=== PATIENT | female | born 1980 | race African-American/Black ===

== ENCOUNTER 2019-12-22 10:26 | Outpatient (CLI) | payer OTHER, BC, SELFPAY ==
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
--- NOTE | ~2019-12-22 | XR_ITS ---
XR lumbar spine 2-3V DATE: 12/22/2019 11:43 INDICATION: Injury, back pain TECHNIQUE: Weightbearing AP, lateral, coned lateral lumbosacral views COMPARISON: None FINDINGS: There is mild levoscoliosis of the lumbar spine. No fracture or bone destruction. The pedic les are intact. Lumbar and lumbosacral interspaces are well preserved. The sacroiliac joints appear n ormal. IMPRESSION: Mild levoscoliosis; otherwise negative Reviewed, dictated and finalized at location B.
--- NOTE | ~2019-12-22 | XR_ITS ---
EXAMINATION: XR knee LT min 4V DATE: 12/22/2019 11:18 INDICATION: Left knee pain. TECHNIQUE: 4 views of left knee were obtained. COMPARISON: None. FINDINGS: Bone alignment is normal. No fracture. Joint spaces are well maintained. There is no knee j oint effusion. IMPRESSION: 1. Normal left knee. Reviewed, dictated and finalized at location A. IMPRESSION: 1. Normal left knee.
== END 2019-12-22 10:27 | disposition home or self-care (01) ==
PROVIDERS: PCP Emergency Medicine; Visit Provider Emergency Medicine
DX: M25.562 Pain in left knee (principal); M54.6 Pain in thoracic spine; M54.5 Low back pain
CPT/HCPCS: 72070; 72100; 73564

== ENCOUNTER 2022-05-06 07:53 | Emergency (ER) | payer BC, SELFPAY ==
[2022-05-06] VITALS (9 sets, daily range): BP systolic 139–152; BP diastolic 98–108; PULSE 103–119; RESP 14–37; TEMP 36.7; O2SAT 98–100
--- NOTE | ~2022-05-06 | CT_ITS ---
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 The dose-length product was 354.77 mGy-cm. Maximum intensity projection 3D-re constructions of the aorta and other arteries were constructed by the technologist on a separate work station. Automated exposure control and iterative reconstruction technique were employed. COMPARISON: CT dated 03/24/2019. FINDINGS: Heart size is normal. No thoracic lymphadenopathy. No significant pleural or pericardial ef fusion. Study is technically adequate without evidence for pulmonary embolism. Small hiatal hernia. N o thoracic lymphadenopathy. The left lower lobe mass seen on prior CT is not visualized on the curren t study. There are changes of left lobectomy. No focal consolidation. No suspicious pulmonary nodules or masses. IMPRESSION: 1. No evidence for pulmonary embolism. No acute cardiopulmonary disease. 2: No acute cardiopulmonary disease. Reviewed, dictated and finalized at location A. STORAGE DRIER
--- NOTE | ~2022-05-06 | XR_ITS ---
XR chest 2V 05/06/2022 08:31 Indication: Chest pain, cough. Lobectomy. Lung cancer. Procedure: PA and lateral views of the chest Comparison: 12/30/2015 Findings: There is left basilar atelectasis. Heart size normal. No focal pneumonia, edema, pleural ef fusion or pneumothorax. No acute osseous abnormality. Impression: 1: Left basilar atelectasis. Reviewed, dictated and finalized at location A. TRICAL AUTOMATION ENGINEER Impression: 1: Left basilar atelectasis.
--- NOTE | 2022-05-06 08:01 | ECG_ITS ---
Measurements Intervals [place] Rate: 118 P: 54 MI: 163 QRS: -3 QRSD: 100 T: 40 QT: 318 QTc: 446 Interpretive Statements SINUS TACHYCARDIA NO PREVIOUS ECG AVAILABLE FOR COMPARISON Electronically Signed On 05-06-2022 15:01:52 CENTER MAKER HAND by Cuca Simental M.D.
--- NOTE | 2022-05-06 08:06 | ED.CHESTPAIN ---
HPI - Chest Pain General Chief Complaint: Chest Pain Stated Complaint: cough with chest discomfort, CHANCE, elevated BP Time Seen by Provider: 05/06/22 08:06 Source: patient and RN notes reviewed Mode of arrival: ambulatory Limitations: no limitations History of Present Illness HPI narrative: Patient drove herself to the emergency room complaining of dry cough, chest pain, headache started yesterday, vomited once this morning. She denies any fever or chills. She denies sick contact. History of lung cancer s/p lobectomy and history of hypertension. Patient does not smoke or drink or uses drugs, patient in tears, denying history of anxiety or depression Related Data Allergies Allergy/AdvReac Type Severity Reaction Status Date / Time amoxicillin Allergy Hives Verified 05/06/22 08:03 omeprazole [From Prilosec] Allergy Hives Verified 05/06/22 08:03 Review of Systems Review of Systems: All systems reviewed & are unremarkable except as noted in HPI and below Exam Narrative: General appearance: Well-developed, well-nourished, in tears, jittery speech Skin: Normal color Head: Normocephalic, nontraumatic Eyes: Clear conjunctiva ENT: Oropharynx normal, ears normal, nose normal Neck: Supple, nontender Chest and respiratory: Airway patent, no respiratory distress, no accessory muscle use. Slight diffuse chest tenderness, no bruises, no rash. Heart: Tachycardia Abdomen: Soft, nontender, no organomegaly, quiet bowel sounds Vascular: Normal peripheral pulses, normal capillary refill. Musculoskeletal: Normal range of motion, nontender back Neurologic: Alert and oriented ?3, SLPS is normal as tested, no gross motor deficit Course Vital Signs Vital signs: Vital Signs Temperature 36.7 C 05/06/22 07:56 Pulse Rate 115 H 05/06/22 07:56 Respiratory Rate 14 05/06/22 07:56 Blood Pressure 152/107 H 05/06/22 07:56 Pulse Oximetry 99 05/06/22 07:56 Oxygen Delivery Room Air 05/06/22 07:56 Temperature 36.7 C 05/06/22 07:56 Pulse Rate 106 H 05/06/22 09:15 Respiratory Rate 22 H 05/06/22 09:15 Blood Pressure 150/108 H 05/06/22 08:34 Pulse Oximetry 98 05/06/22 09:15 Oxygen Delivery Room Air 05/06/22 07:56 MDM - Chest Pain Differential Diagnosis Differential diagnosis: Likely atypical chest pain, costochondritis, chest pain and other (Anxiety/stress related symptoms, respiratory viral infection) Lab Data 05/06/22 08:26 05/06/22 08:26 Labs: Lab Results 05/06/22 05/06/22 05/06/22 Range/Units 08:26 08:26 08:26 WBC 10.1 H (4.5-10.0) K/mm3 RBC 4.67 (4.2-5.4) M/mm3 Hgb 13.9 (12.0-15.0) g/dL Hct 40.4 (37.0-47.0) % MCV 86.5 (80-100) fl MCH 29.8 (26-34) pg MCHC 34.4 (32-36) g/dl RDW 12.1 (11.5-14.5) % Plt Count 240 (150-375) k/mm3 MPV 9.0 (7.4-10.4) fl Immature Gran % (Auto) 0.5 (0-0.5) % Neut % (Auto) 84.8 H (45.5-73.1) % Lymph % (Auto) 9.0 L (18.3-44.2) % Early % (Auto) 5.3 (2.6-8.5) % Eos % (Auto) 0.2 (0-4.4) % Baso % (Auto) 0.2 (0.2-1.2) % Lymph # (Auto) 0.91 (0.9-3.2) K/mm3 Early # (Auto) 0.5 (0.1-0.6) K/mm3 Eos # (Auto) 0.0 (0-0.3) K/mm3 Baso # (Auto) 0.0 (0.0-0.1) K/mm3 Abs Immat Gran (auto) 0.05 H (0.00-0.031) K/mm3 Absolute Neuts (auto) 8.6 H (1.3-6.7) K/mm3 Absolute Nucleated RBC 0.0 (0.0-0.012) K/mm3 Nucleated RBC % 0.0 (0.0-0.2) % PT 12.3 (11.1-14.7) Seconds INR 1.0 APTT 25.3 (22.3-36.8) SECONDS D-Dimer 0.56 H (<0.48) ug/mL Sodium 133 L (137-145) mmol/L Potassium 3.9 (3.4-5.0) mmol/L Chloride 105 (98-107) mmol/L Carbon Dioxide 21
[2022-05-06 08:36] LABS: Basophils Percent Auto 0.2 % (0.2-1.2); Eosinophils Percent Auto 0.2 % (0-4.4); Hematocrit 40.4 % (37.0-47.0); Hemoglobin 13.9 g/dL (12.0-15.0); Immature Granulocyte Absolute 0.05 K/mm3 (0.00-0.031); Immature Granulocyte Percent A 0.5 % (0-0.5); Lymphocytes Absolute Auto 0.91 K/mm3 (0.9-3.2); Mean Corpuscular HGB Conc 34.4 g/dl (32-36); Mean Corpuscular Hemoglobin 29.8 pg (26-34); Mean Corpuscular Volume 86.5 fl (80-100); Monocytes Absolute Auto 0.5 K/mm3 (0.1-0.6); Monocytes Percent Auto 5.3 % (2.6-8.5); Neutrophils Absolute Auto 8.6 K/mm3 (1.3-6.7); Neutrophils Percent Auto 84.8 % (45.5-73.1); Platelet Count Result 240 k/mm3 (150-375); Red Blood Count 4.67 M/mm3 (4.2-5.4); Red Cell Distribution Width 12.1 % (11.5-14.5); White Blood Count 10.1 K/mm3 (4.5-10.0)
[2022-05-06 08:46] LABS: Alanine Aminotransferase 17 U/L (6-35); Alkaline Phosphatase 67 U/L (38-126); Anion Gap 7 mmol/L (8-16); Aspartate Amino Transferase 22 U/L (14-36); Bilirubin,Total 0.4 mg/dL (0.2-1.3); Blood Urea Nitrogen 11 mg/dL (7-17); Calcium 8.4 mg/dL (8.4-10.2); Carbon Dioxide 21 mmol/L (22-30); Chloride 105 mmol/L (98-107); Estimated Glomerular Filt Rate > 60; Glucose 97 mg/dL (65-110); Lipase 43 U/L (23-300); Potassium 3.9 mmol/L (3.4-5.0); Sodium 133 mmol/L (137-145)
[2022-05-06 08:49] LABS: Prothrombin Time 12.3 Seconds (11.1-14.7)
[2022-05-06 08:50] LABS: Partial Thromboplastin Time 25.3 SECONDS (22.3-36.8)
[2022-05-06 08:55] LABS: D Dimer 0.56 ug/mL (<0.48)
[2022-05-06 08:57] LABS: Troponin I < 0.012 ng/mL (0.000-0.034)
[2022-05-06 09:24] LABS: Influenza A QL RT-PCR Positive (Negative); Influenza B QL RT-PCR Negative (Negative); RSV RNA, RT-PCR Negative (Negative); SARS-CoV-2 RNA PCR Negative
[2022-05-06 11:30] LABS: Troponin I < 0.012 ng/mL (0.000-0.034)
[2022-05-06] MEDS: ACETAMINOPHEN 500 MG TABLET 1000 MG (11:32)
[2022-05-06] MEDS: IBUPROFEN 600 MG TABLET (11:33)
== END 2022-05-06 11:40 | disposition home or self-care (01) ==
PROVIDERS: Emergency Provider Emergency Medicine; PCP Emergency Medicine
DX: J10.1 Influenza due to other identified influenza virus with other respiratory manifestations (principal); Z20.822 Contact with and (suspected) exposure to COVID-19; I10 Essential (primary) hypertension; Z85.118 Personal history of other malignant neoplasm of bronchus and lung; Z90.2 Acquired absence of lung [part of]; R00.0 Tachycardia, unspecified; R07.9 Chest pain, unspecified
CPT/HCPCS: 36415; 71046; 71275; 80053; 81025; 83690; 84484; 85025; 85380; 85610; 85730; 87637; 93005; 99284; A9270; Q9967

== ENCOUNTER 2022-06-30 07:52 | Outpatient (CLI) | payer BC, SELFPAY ==
--- NOTE | ~2022-06-30 | MM_ITS ---
EXAMINATION: MM screening [place] BI w [place] HISTORY: Screening TECHNIQUE: Craniocaudal and mediolateral oblique 3-D tomosynthesis images were obtained and synthetic 2-D images were generated. CAD analysis was submitted and interpreted. COMPARISON: No prior mammogram is available for comparison at this institution. BREAST PARENCHYMAL COMPOSITION: Breast composed of scattered areas of fibroglandular density FINDINGS: There are bilateral breast asymmetries located in the lower medial aspect of both breasts. There is no focal architectural distortion. No suspicious cluster of calcifications. IMPRESSION: 1. Bilateral breast asymmetries. 2. Additional spot compression and mediolateral views with possible follow-up breast ultrasound recom mended. BI-RADS Category 0: Incomplete: Needs additional imaging evaluation. Reviewed, dictated and finalized at location A. [place] SPECIALIST IMPRESSION: 1. Bilateral breast asymmetries. 2. Additional spot compression and mediolateral views with possible follow-up b reast ultrasound recommended. BI-RADS Category 0: Incomplete: Needs additional imaging evaluation.
== END 2022-06-30 07:53 | disposition home or self-care (01) ==
PROVIDERS: PCP Emergency Medicine; Visit Provider Nurse Practitioner Obstetrics & Gynecology
DX: Z12.31 Encounter for screening mammogram for malignant neoplasm of breast (principal); R92.8 Other abnormal and inconclusive findings on diagnostic imaging of breast
CPT/HCPCS: 77063; 77067

== ENCOUNTER 2022-07-24 11:51 | Outpatient (CLI) | payer BC, SELFPAY ==
--- NOTE | ~2022-07-24 | MMUS_ITS ---
EXAMINATION: MM diagnostic [place] BI w [place], US breast BI complete HISTORY: Bilateral mammographic asymmetries reported on 06/30/2022 screening mammogram TECHNIQUE: Additional 3-D tomosynthesis images of both breasts were performed and synthetic 2-D image s were generated. CAD analysis was submitted and interpreted. High resolution bilateral complete yoseph st ultrasound examination was performed, including all 4 quadrants and subareolar areas. COMPARISON: 06/30/2002 bilateral screening mammogram FINDINGS: MAMMOGRAPHIC FINDINGS: No reproducible mass or architectural distortion is detected. ULTRASOUND: No suspicious mass or shadowing of either breast is detected. No cysts or other significant sonograph ic findings. IMPRESSION: 1. No mammographic evidence of malignancy 2. Routine annual mammographic screening is recommended BI-RADS Category 1: Negative Reviewed, dictated and finalized at location A. TRUCTION SAFETY CONSULTANT IMPRESSION: 1. No mammographic evidence of malignancy 2. Routine annual mammographic screening is recommended BI-RADS Category 1: Negative
== END 2022-07-24 11:52 | disposition home or self-care (01) ==
LOC: ANHIMG 11:52
PROVIDERS: PCP Emergency Medicine; Visit Provider Nurse Practitioner Obstetrics & Gynecology
DX: R92.8 Other abnormal and inconclusive findings on diagnostic imaging of breast (principal)
CPT/HCPCS: 76641; 77062; 77066; G0279

== ENCOUNTER 2023-04-20 15:19 | Emergency (ER) | payer BC, SELFPAY ==
--- NOTE | ~2023-04-20 | XR_ITS ---
EXAMINATION: XR chest 2V 04/20/2023 16:48 INDICATION: Shortness of breath with cough for 3 weeks PROCEDURE: 2 view chest COMPARISON: Chest dated 05/06/2022 FINDINGS: The lungs are clear. The cardiomediastinal silhouette is within normal limits. There are no pleural effusions. There is no pneumothorax suspected. IMPRESSION: 1: NO ACUTE CARDIOPULMONARY DISEASE. Reviewed, dictated and finalized at location L. AL EDUCATOR
[2023-04-20 15:42] VITALS: BP 150/98; PULSE 87; RESP 16; TEMP 36.8; O2SAT 99
--- NOTE | 2023-04-20 17:00 | ED.GENADULT ---
HPI - General Adult General Chief complaint: Upper Respiratory Infection Stated complaint: cough/uri Time Seen by Provider: 04/20/23 16:16 History of Present Illness HPI narrative: 42-year-old female presenting ED for evaluation of persistent cough. Patient was recently on prednisone, Tessalon Perles and doxycycline. Patient states the doxy has been causing her to have some nausea and vomiting. Related Data Allergies Allergy/AdvReac Type Severity Reaction Status Date / Time amoxicillin Allergy Hives Verified 05/06/22 08:03 omeprazole [From Prilosec] Allergy Hives Verified 05/06/22 08:03 Review of Systems Review of Systems: All systems reviewed & are unremarkable except as noted in HPI and below Exam Narrative: APPEARANCE: Well appearing, no pain, no distress, well-nourished. HEAD: normocephalic, atraumatic. EYES: PERRLA/EOMI, conjunctivae clear. NOSE: Normal no drainage EARS:TMS clear with good light reflex. THROAT: Pharynx clear, no exudate. NECK: Supple. No adenopathy, no masses. RESPIRATORY: Airway patent, respirations nonlabored. Clear to auscultation bilaterally, no rales, rhonchi, wheezing. CARDIOVASCULAR: Regular rate and rhythm without murmurs rubs or gallops. ABDOMINAL: Soft, nontender, nondistended, normal bowel sounds MUSCULOSKELETAL: Moves all extremities. Strength/ROM intact, No edema, No calf tenderness. NEURO: Alert. Cranial nerves II through XII intact. grossly intact SKIN: Warm, dry. Normal Color Course Course Emergency Course: 42-year-old female with an emerge from for evaluation of persistent and cough. Patient chest x-ray showed no evidence of pneumonia. Patient did test positive for RSV. patient states she is not tolerating the doxycycline due to nausea and vomiting. Patient has no focal pneumonia seen on the chest x-ray patient did test positive RSV. Patient was advised to stop the antibiotic and patient was provided medications for symptom control. Patient was given the results of the workup. All questions concerns were addressed patient was well-appearing at time of discharge. Vital Signs Vital signs: Vital Signs Temperature 98.3 F 04/20/23 15:42 Pulse Rate 87 04/20/23 15:42 Respiratory Rate 16 04/20/23 15:42 Blood Pressure 150/98 H 04/20/23 15:42 Pulse Oximetry 99 04/20/23 15:42 Temperature 98.3 F 04/20/23 15:42 Pulse Rate 87 04/20/23 15:42 Respiratory Rate 16 04/20/23 15:42 Blood Pressure 150/98 H 04/20/23 15:42 Pulse Oximetry 99 04/20/23 15:42 Oxygen Delivery Room Air 04/20/23 16:13 Medical Decision Making Differential Diagnosis Differential Diagnosis: Pneumonia, COVID, RSV, influenza Vital Signs Vital Signs: Vital Signs Temperature 98.3 F 04/20/23 15:42 Pulse Rate 87 04/20/23 15:42 Respiratory Rate 16 04/20/23 15:42 Blood Pressure 150/98 H 04/20/23 15:42 Pulse Oximetry 99 04/20/23 15:42 Temperature 98.3 F 04/20/23 15:42 Pulse Rate 87 04/20/23 15:42 Respiratory Rate 16 04/20/23 15:42 Blood Pressure 150/98 H 04/20/23 15:42 Pulse Oximetry 99 04/20/23 15:42 Oxygen Delivery Room Air 04/20/23 16:13 Lab Data Lab results reviewed: Yes I reviewed the patient's lab results. Labs: Lab Results 04/20/23 Range/Units 16:24 Influenza A (RT-PCR) Negative (Negative) Influenza B (RT-PCR) Negative (Negative) RSV (RT-PCR) Positive A (Negative) SARS-CoV-2 RNA (RT-PCR) Negative (Negative) Imaging Data Radiologist's impression: Impressions Chest X-Ray 04/20/23 16:50 IMPRESSION: 1: NO ACUTE CARDIOPULMONARY DISEASE. Discharge Plan Discharge Clinical Impression: Respiratory syncytial virus (RSV) Patient Disposition: Home, Self-Care Condition: Stable Instructions: Antibiotic Form, Viral Syndrome (ED) Additional Instructions: Latricia Aguirre for home. albuterol inhaler for shortness of breath. Stop taking the antibiotic.
[2023-04-20 17:06] LABS: Influenza A QL RT-PCR Negative (Negative); Influenza B QL RT-PCR Negative (Negative); RSV RNA, RT-PCR Positive (Negative); SARS-CoV-2 RNA PCR Negative (Negative)
== END 2023-04-20 17:37 | disposition home or self-care (01) ==
PROVIDERS: Emergency Provider Emergency Medicine; PCP Emergency Medicine
DX: R05.9 Cough, unspecified (principal); B97.4 Respiratory syncytial virus as the cause of diseases classified elsewhere
CPT/HCPCS: 71046; 87637; 99283

== ENCOUNTER 2023-10-13 09:15 | Outpatient (CLI) | payer BC, SELFPAY ==
--- NOTE | ~2023-10-13 | MM_ITS ---
EXAMINATION: MM screening [place] BI w [place] HISTORY: Screening mammogram TECHNIQUE: Craniocaudal and mediolateral oblique 3-D tomosynthesis images were obtained and synthetic 2-D images were generated. CAD analysis was submitted and interpreted. COMPARISON: July 24, 2022 bilateral diagnostic mammography and bilateral complete breast ultrasou nd examination, reported negative 06/30/2022 bilateral screening mammogram BREAST PARENCHYMAL COMPOSITION: There are scattered areas of fibroglandular density. FINDINGS: There is no evidence of suspicious mass, calcification, or architectural distortion to sugg est malignancy in either breast. There has been no suspicious interval change. IMPRESSION: 1. No mammographic evidence of malignancy. 2. Recommend routine screening mammography in one year. BI-RADS Category 1: Negative Reviewed, dictated and finalized at location B.
== END 2023-10-13 09:16 | disposition home or self-care (01) ==
LOC: ANHIMG 09:19
PROVIDERS: PCP Emergency Medicine; Visit Provider Nurse Practitioner Obstetrics & Gynecology
DX: Z12.31 Encounter for screening mammogram for malignant neoplasm of breast (principal)
CPT/HCPCS: 77063; 77067

== ENCOUNTER 2024-08-16 19:05 | Emergency (ER) | payer BC, SELFPAY ==
--- NOTE | ~2024-08-16 | XR_ITS ---
CHEST RADIOGRAPH, PA AND LATERAL CLINICAL HISTORY: CP . COMPARISON: 04/20/2023 TECHNIQUE: PA and lateral views of the chest. FINDINGS The cardiomediastinal silhouette is unremarkable. The lungs are clear. Visualized osseous structures and soft tissues are unremarkable. IMPRESSION: No focal infiltrate or effusion. Reviewed, dictated and finalized at location A.
--- OUTSIDE RECORDS SUMMARY | 2024-08-16 19:07 | XMS_ITS ---
Author Organization [facility] Address [address], [facility] [place] [address] Phone Care Team Providers Care Russian Language Professor Name Role Phone Rudy Seaman Primary Care Provider [phone] Michael Hutson MD Unavailable [phone] Active Problems Problem Noted Date Diagnosed Date Iron deficiency anemia, unspecified 03/17/2024 Hemangioma of spine 12/10/2021 Chronic midline low back pain with left-sided sc iatica 12/10/2021 Complete lesion of L1 level of lumbar spinal cor d 09/25/2021 Vitamin D deficiency 08/07/2021 Iron deficiency 08/07/2021 Hiatal hernia 12/27/2020 Liver lesion 11/28/2020 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 Other Current Plans [facility]: Support Injectafer* Plan Start Date:03/24/2024 Plan Provider:Michael Hutson MD Linked Problems Iron deficiency anemia, unsp ecified iron deficiency anemia type Treatment Medications No medications scheduled. SUPPORT - VITAMIN B12 WEEKLY - [facility]* Plan Start Date:08/07/2021 Plan Provider:Jennifer Romano PAC Linked Problems Vitamin D deficiencyIron def iciency Treatment Medications No medications scheduled. Past Treatment and Therapy Plans
--- OUTSIDE RECORDS SUMMARY | 2024-08-16 19:07 | XMS_ITS | Encounter Summary ---
Author Organization [facility] Address [address] [place] [address] Phone Care Team Providers Care Shot Polisher Name Role Phone Rudy Seaman Primary Care Provider [phone] Michael Hutson MD Unavailable Encounter Details Date Type Department Care Team (Late st Contact Info) Description 09/25/2021 Telephone [facility] [address] [phone] Michael Hutson MD [address] [facility] [address] [address] Social History Tobacco Use Types Packs/Day Years Used Date Smoking Tobacco: Never Smokeless Tobacco: Never Alcohol Use Standard Drinks/Week Comments Never 0 (1 standard drink = 0.6 oz pur e alcohol) AUDIT-C Answer Date Recorded Frequency of Alcohol Consumption Never 07/21/2019 Average Number of Drinks Not on file 020 Frequency of Binge Drinking Not on file 07/02 PHQ-2 Answer Date Recorded Total Score - Questions 1-9 0 08/30 Education Answer Date Recorded What is the highest level of school you have completed or the highest degree you have received? 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 No / Unsure 09/25/2021 8:21 AM CDT documented as of this encounter Miscellaneous Notes * Telephone Encounter - Nusrat Morfin - 10/01/2021 7:42 AM CDT Patient is scheduled on October 06 for her MRI at [facility] in [place]. Patient aware of new appointment. * Telephone Encounter - Michael Hutson MD - 09/25/2021 2:26 PM CDT ok * Telephone Encounter - Nusrat Morfin - 09/25/2021 1:45 PM CDT I will see if [facility] get [facility] patient [facility] sooner. She did ask if she can get a prescription forAtivan to help calm her when she does the MRI. * Telephone Encounter - Michael Hutson MD - 09/25/2021 1:20 PM CDT Prefer to get it sooner so we can have results before visit * Telephone Encounter - Nusrat Morfin - 09/25/2021 12:48 PM CDT Patient called because the first available appointment for the MRI isn't until October 17. She wantedto know if that date is ok to do or if she needs to get in sooner. If the October 17 appointment is ok, does she need to move the October 16 appointment with you to a different day? Please advise. documented in this encounter Plan of Treatment Upcoming Encounters Date Type Department Care Team (Late st Contact Info) Description 08/18/2024 9:00 AM CDT Office Visit [facility] [address] [phone] Michael Hutson MD [address] [facility] [place] [address] [address] 08/18/2024 9:15 AM CDT Clinical Support [facility] [address] [phone] Nurse, [facility] documented as of this encounter Visit Diagnoses Not on filedocumented in this encounter Additional Health Concerns Assessment Noted Time PHQ-9 Depression Total Score: 0 02/28/20 8:32 AM CDT documented as of this encounter Care Teams Shot Polisher Relationship Specialty Start Date End Date Rudy Seaman [address] [place] [address] PCP - General Family Medicine 07/21/19 Michael Hutson MD [address] [place] [phone] Consulting Physician Oncology 07/21/19 documented as of this encounter
--- OUTSIDE RECORDS SUMMARY | 2024-08-16 19:07 | XMS_ITS | Data Portability ---
Author Organization [facility] Address [address] [place] [address] [place] [address] Care Team Providers Care Jewel Sawyer Name Role Phone ARACELI QURESHI Primary Care Provider Assessment Encounter Date Assessment Date Assessment LastModified by Organization Details LastModified Time 02/26/2020 02/26/2020 Annual gynecological exam performed. Patient will come back in a year unless there are new symptoms. [email or web address] Not available 02/26/2020 14:17:20 03/13/2021 03/13/2021 Annual gynecological exam performed. Patient will come back in a year unless there are new symptoms. Not available 03/12/2021 16:41:18 03/31/2022 03/31/2022 Annual gynecological exam performed. Patient will come back in a year unless there are new symptoms. Not available 03/31/2022 16:06:33 2023 2023 Annual gynecological exam performed. Patient will come back in a year unless there are new symptoms. [email or web address] Not available 2023 12:22:40 Plan of Treatment Reminders Order Date Submit Date Provider Last Modified By Organization Details Last Modified Time Details Appointments None recorded. Lab None recorded. Referral None recorded. Procedures None recorded. Surgeries None recorded. Imaging MAMMO, screening, bilateral 2023 024 [email or web address] [facility], [address], [place], [address], 10:25:50 Medication Orders Isibloom 0.15 mg-0.03 mg tablet 2023 024 [facility], [address], [place], [place], [id number], 4 12:39:28 Apri 0.15 mg-0.03 mg tablet 2021 022 [facility]26539, [address], [place], [place], [id number], 2 16:28:38 Diflucan 200 mg tablet [address] [facility]889, [address], [place], [place], [id number], 2 16:08:00 nystatin-t riamcinolo ne 100,000 unit/gram- 0.1 % topical ointment 2020 021 [address] [facility], [address], [place], [place], [id number], 2 16:08:23 Apri 0.15 mg-0.03 mg tablet 2020 021 [facility], [address], [place], [place], [id number], 1 11:28:16 Apri 0.15 mg-0.03 mg tablet 2019 020 [facility], [address], [place], [place], [id number], 0 14:54:37 Patient TargetsNo targets recorded. Patient Instructions Encounter Date Encounter Id Patient Instructions Last Modified By Organization Details Last Modified Time 02/26/2020 [email or web address] Not available 14:50:45 Reason for Referral None Reported. Results Created Date Observation Date Name Description Value Unit Range Abnormal Flag Note LastModifiedBy Organization Detail LastModifiedTime 02/26/20 20 02/27/2020 pap, LB Pap test thin prep Negati ve for Intrae pithel ial Lesion or Malign rosetta normal ACCES JUDIT #: [id number] Sour e: Cervi xander/E ndoce rvica l LMP: 10/17 Date Taken : 02/25 Speci men Type: ThinP rep Vial Date Repor elton: 2019 Clini xander Data: Cytot ech: Shirley Ybarra, CT( CP) Date Repor elton: 2019 Speci men Adequ acy: Satis facto ry for evalu ation Endoc ervic al/tr ansfo rmati on zone compo nent prese nt Gener al Categ oriza tion: NEGAT DIANN FOR INTRA EPITH ELIAL LESMILDRED N OR MALALBINO NELIDA This speci men has been maciel zed by the ThinP rep Imagi ng Syste m, an inter activ e compu ter syste m which narciso ts the lab in the scree ambrocio of ThinP rep Pap Test slide s. Joy sánchez imagi ng, the slide was revie wed by a Cytot echno logis t and/o r Patho logis t. D N A A S S A Y S R E P O R T TEST NAME RESUL TS ----- ---- ----- -- HPV High Risk Screandre n (TMA) ThinP rep Vial The human papil lomav irus (HPV) High Risk Scree n is an FDA-a pprov ed in-vi tro ampli fied nucle ic acid test for the quali tativ e detec tion of E6/E7 viral mRNA. Resul ts shoul d be corre lated with patie nt prese ntati on, histo ry, cervi xander cytol ogy and other clini xander and labor atory findi ngs. See https ://Studyplaces/s ites/ deflivan lt/fi les/2 018-0 3/AW- 58504 _002_ 01.pd f for furth er infor matio n. Test perfo rmed by [facility], d/b/a Celeste [facility]yle, [address], [place] [address] , Kim Degroot ra, DO, Labor [employer] [facility] [facility]. HPV High Risk *HPV NOT DETEC ELTON (TYPE S 16, 18, 31, 33, 35, 39, 45, 51, 52, 56, 58, 59, 66, 68) *HPV: The human papil lomav irus (HPV) High Risk Irineo herman is an FDA-a pprov ed in-vi tro ampli fied nucle ic acid test for the quali tativ e detec tion of E6/E7 viral mRNA. [facility] ts shoul d be corre lated with patie nt prese ntati on, histo ry, cervi xander cytol ogy and other clini xander and labor atory findi ngs. See https ://Studyplaces/s ites/ defau lt/fi les/2 018-0 3/AW- 89501 _002_ 01.pd f for formerly [facility] er infor minerva n. Test perfo rmed by [employer], d/b/a [employer], [address], [place] [address] , Kim Degroot ra, DO, Labor [employer] [facility] tor. End of Repor t Techn ical servi raza provi ded by [employer], d/b/a [employer], [address] [place] [address] Ridge Kirkpatrick MD, Merged With [facility] [employer] [facility]. Case revie wed and diagn osis rende red at [employer], d/b/a [facility], [address] [place] [address] Ridge Kirkpatrick MD, Merged With [facility] CONFI DENTI AL Not Available [facility] ([facility]) [address], [place], [address], 02/27/2020 19:29:00 02/26/20 20 02/27/2020 HPV DNA, high- risk HPV high risk NOT DETECT ED normal Not Available [facility] ([facility]) [address] [facility] [address], [place], [address], 02/27/2020 19:29:00 03/13/20 21 03/13/2021 IMAGE GUIDE D PAP AND HPV REGAR DLESS image guided Pap, HPV regardless of Pap result SEE RESULT S BELOW CASE REPOR T: Cytol ogy Gynec ologi xander Repor t Case: [id number] Autho tommie green Provi reese: Won Coy Colle cted: 03/13 1402 ROOFER METAL Order ing Locat ion: [place] Patho logy Recei natalia: 03/14 0025 First Scree n: Griselda gutierrez, Katalina bell, CT Speci men: Scree ambrocio Pap - Image d, Cervi x STATE MENT OF ADEQU ACY: Satis facto ry for evalu ation Trans forma tion zone compo nent prese nt FINAL DIAGN OSIS: Negat diann for Intra epith elial Lesio n or Diamond merrill (NIL) . 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 Elect srinath noland pat d by Katalina Morataya, CT on 03/19 at 6:42 PM ----- ----- ----- ----- ----- ----- ----- ----- ----- ----- ----- ----- ----- ----- ----- ----- ----- ---- HPV RESUL TS: HPV mRNA E6/E7 : No HPV mRNA Detec elton NOTE: This high risk HPV mRNA assay detec ts fourt een high- risk HPV types (16, 18, 31, 33, 35, 39, 45, 51, 52, 56, 58, 59, 66, 68) witho ut diffe renti ation . COMME NT: Note: This speci men was revie wed by a Cytot echno logis t and/o r Patho logis t (as indic ated in this repor t) after evalu ation using the Thinp rep Imagi ng Syste m. CLINI XANDER INFOR MATIO N: Menst rual Statu s: LMP (if appli cable ): 2020 Clini xander Histo ry/Pr eviou s Pap: Type of Neopl marino (if appli cable ): Signi fican t Clini xander Findi ngs: Other Histo ry: Hormo lamin (if appli cable ): PAP EDUCA ILIANA L NOTE: The Pap Test is a scree ambrocio test with an inher ent false negat diann rate. Liqui d-bas e sampl ing may decre ase, but will not elimi faviola, false negat diann resul ts. A negat diann resul t does not precl ude the prese nce and/o r devel opmen t of disea se, since the prese nce of abnor mal cells in the sampl e depen ds on the locat ion of the lesio n and sampl ing techn ique. Jeane nued regul ar scree ambrocio is the best metho d of cance r preve ntion . If repor elton cytol ogic findi ng do not corre late with physi xander and/o r histo rical findi ngs, furth er inves tigat ion is recom laura d, as clini hilaria warrmonica nted. Not Available [facility] (Lab) [address], [place], [address], 03/19/2021 19:44:39 03/31/20 22 03/31/2022 IMAGE GUIDE D PAP AND HPV REGAR DLESS image guided Pap, HPV regardless of Pap result SEE RESULT S BELOW CASE REPOR T: Cytol ogy Gynec ologi xander Repor t Case: [id number] Autho tommie green Provi reese: Won Coy Colle cted: 03/31 1709 ROOFER METAL Order ing Locat ion: [place] Patho logy Recei natalia: 04/01 0333 First Scree n: Eva [place] , CT Rescr een: Nomarge ni, Annam ed, CT Speci men: Scree ambrocio Pap - Image d, Cervi x STATE MENT OF ADEQU ACY: Satis facto ry for evalu ation Trans forma tion zone compo nent absen t The absen ce of an endoc ervic al compo nent was confi rmed by an addit pepe jaeger. FINAL DIAGN OSIS: Negat diann for Intra epith elial Lesio n or Diamond merrill (NIL) . Elect srinath noland pat d by Dorian Suarez ed, CT on 2021 at 5:57 PM ----- ----- ----- ----- ----- ----- ----- ----- ----- ----- ----- ----- ----- ----- ----- ----- ----- ---- HPV RESUL TS: HPV mRNA E6/E7 : No HPV mRNA Detec etlon NOTE: This high risk HPV mRNA assay detec ts fourt een high- risk HPV types (16, 18, 31, 33, 35, 39, 45, 51, 52, 56, 58, 59, 66, 68) witho ut diffe renti ation . COMME NT: Note: This speci men was revie wed by a Cytot echno logis t and/o r Patho logis t (as indic ated in this repor t) after evalu ation using the Thinp rep Imagi ng Syste m. CLINI XANDER INFOR MATIO N: Menst rual Statu s: LMP (if appli cable ): Clini xander Histo ry/Pr eviou s Pap: Type of Neopl marino (if appli cable ): Signi fican t Clini xander Findi ngs: Other Histo ry: Hormo lamin (if appli cable ): PAP EDUCA ILIANA L NOTE: The Pap Test is a scree ambrocio test with an inher ent false negat diann rate. Liqui d-bas ed sampl ing may decre ase, but will not elimi faviola, false negat diann resul ts. A negat diann resul t does not precl ude the prese nce and/o r devel opmen t of disea se, since the prese nce of abnor mal cells in the sampl e depen ds on the locat ion of the lesio n and sampl ing techn ique. Jeane nued regul ar irineo albrecht is the best metho d of cance r preve ntion . If repor elton cytol ogic findi ng do not corre late with physi xander and/o r histo rical findi ngs, furth er inves tigat ion is recom laura d, as clini hilaria nolan nted. Not Available [facility] (Lab) [address], [place], [address], 04/05/2022 18:59:35 06/15/19 24 2023 IMAGE GUIDE D PAP AND HPV REGAR DLESS image guided Pap, HPV regardless of Pap result SEE RESULT S BELOW CASE REPOR T: Cytol ogy Gynec ologi xander Repor t Case: [id number] Autho tommie green Provi reese: Won Coy Colle cted: 06/15 1337 ROOFER METAL Order ing Locat ion: [place] Patho logy Recei natalia: 06/16 0847 First Screandre n: Pablo Staples am, CT Speci men: Irineo albrecht Pap - Image d, Cervi x STATE MENT OF ADEQU ACY: Satis facto ry for evalu ation Trans forma tion zone compo nent prese nt FINAL DIAGN OSIS: Negat diann for Intra epith elial Lesmildred herman or Diamond merrill (NIL) . Shift in kendell sugge stive of bacte rial vagin osis. Elect srinath noland pat d by Pablo Staples am, CT on 2023 at 11:26 AM ----- ----- ----- ----- ----- ----- ----- ----- ----- ----- ----- ----- ----- ----- ----- ----- ----- ---- HPV RESUL TS: HPV mRNA E6/E7 : No HPV mRNA Detec elton NOTE: This high risk HPV mRNA assay detec ts fourt een high- risk HPV types (16, 18, 31, 33, 35, 39, 45, 51, 52, 56, 58, 59, 66, 68) witho ut diffe renti ation . COMME NT: This speci men was revie wed by a Cytot echno logis t and/o r Patho logis t (as indic ated in this repor t) after evalu ation using the Thinp rep Imagi ng Syste m. CLINI XANDER INFOR MATIO N: Menst rual Statu s: LMP (if appli cable ): Clini xander Histo ry/Pr eviou s Pap: Type of Neopl marino (if appli cable ): Signi fican t Clini xander Findi ngs: Other Histo ry: Hormo lamin (if appli cable ): PAP EDUCA ILIANA L NOTE: The Pap Test is a scree ambrocio test with an inher ent false negat diann rate. Liqui d-bas ed sampl ing may decre ase, but will not elimi faviola, false negat diann resul ts. A negat diann resul t does not precl ude the prese nce and/o r devel opmen t of disea se, since the prese nce of abnor mal cells in the sampl e depen ds on the locat ion of the lesio n and sampl ing techn ique. Jeane nued regul ar scree ambrocio is the best metho d of cance r preve ntion . If repor elton cytol ogic findi ng do not corre late with physi xander and/o r histo rical findi ngs, furth er inves tigat ion is recom laura d, as clini hilaria nolan nted. Not Available [facility] (Lab) [address], [place], [address], 06/17/2023 12:29:38 06/15/19 24 2023 TRICH OMONA S VAGIN SADE (RRNA ) trichomonas vaginalis ribosomal RNA (rrna) Negati ve negati ve Not Available [facility] (Lab) [address], [place], [address], 06/17/2023 12:29:39 06/15/[address]/GC (IRIS) , THINP REP VIAL chlamydia trachomatis, PCR Negati ve negati ve Not Available [facility] (Lab) [address], [place], [address], 06/17/2023 12:29:39 06/15/[address]/GC (IRIS) , THINP REP VIAL neisseria gonorrhoeae, PCR Negati ve negati ve Not Available [facility] (Lab) [address], [place], [address], 06/17/2023 12:29:39 06/30/19 23 06/30/2022 MAMMO , scree ambrocio, bilat eral No observ ation record ed. [address], [address], 07/09/2022 16:14:15 07/01/19 23 06/30/2022 MAMMO , scree ambrocio, bilat eral No observ ation record ed. [address] [address], [place], [address], 07/09/2022 16:14:16 07/25/19 23 07/24/2022 US, benita t, bilat eral No observ ation record ed. [address], [address], 07/31/2022 07:31:21 Result Notes None recorded. Problems Name Problem SNOMED Code Status Onset Date Resolution Date Notes Provider Name and Address Organization Details Recorded Time Malignan t tumor of lung 027333244 Completed 201906/30/2019 Monica julien [place] - [facility] 0 16:51:48 Ultrason ography Completed 201303/12/2021 Antenata l screenin g for malforma tion using ultrason ics;Prac jodie ID: 0001 Dina Schaefer anaya, [facility] 16:39:44 Antenata l screenin g Completed 201303/12/2021 Antenata l screenin g for malforma tion using ultrason ics;Prac jodie ID: 0001 Dina julien, [facility] 16:39:12 Congenit al malforma tion [id number] Completed 201303/12/2021 Antenata l screenin g for malforma tion using ultrason ics;Prac jodie ID: 0001 Dina Schaefer anaya, [facility] 16:39:19 Routine antenata l care Completed 201303/12/2021 Supervis ion of other normal pregnanc y;Practi ce ID: 0001 Dina Schaefer anaya, [facility] 16:39:30 Complica tion related to pregnanc y Completed 201303/12/2021 Weight Insuffic ient Antepart um;Pract ice ID: 0001 Dina julien, [facility] 16:39:17 Poor growth affectin g manageme nt [id number] Completed 201303/12/2021 GROWTH POOR SGA;Prac jodie ID: 0001 Dina Schaefer anaya, [facility] 16:39:27 Screenin g for malignan t neoplasm of cervix Completed 201303/12/2021 Pap Smear;Pr actice ID: 0001 Dina julien, [facility] 16:39:32 Maternal care for diminish ed movement s Completed 201303/12/2021 Decrease d movement s, affectin g manageme nt of mother, antepart um conditio n or complica tion;Pra ctice ID: 0001 Dina julien, [facility] 16:39:24 Body mass index 30+ - obesity [id number] Completed 201703/12/2021 Body mass index (BMI) 31.0-31. 9, adult;Re corded Elsewher e: No Locat ion: [facility] S ource: EHR Title Lawyer michelle: N Practi ce ID: 0001 Jim lable Time: 03:00:00 PM Dina Schaefer [facility] 16:39:[address] Concept Completed 201603/12/2021 Encntr for mental health assistant exam (general ) (routine ) w/o abn findings ;Recorde d Elsewher e: No Locat ion: [facility] S ource: EHR Title Lawyer michelle: N Practi ce ID: 0001 Jim lable Time: 01:00:00 PM Dina Schaefer [facility] 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 16:39:[address] Concept Completed 201803/12/2021 Encntr for routine child health exam w/o abnormal findings ;Recorde d Elsewher e: No Locat ion: [facility] S ource: EHR Title Lawyer michelle: N Practi ce ID: 0001 Jim lable Time: 08:30:00 AM Dina Schaefer [facility] 16:39:36 Pregnanc y test positive [id number] Completed 201303/12/2021 Pregnanc y examinat ion or test, positive result;R ecorded Elsewher e: No Locat ion: [facility] S ource: EHR Title Lawyer michelle: N Practi ce ID: 0001 Jim lable Time: 01:15:00 PM Dina julien [facility] 16:39:29 Increase d frequenc y of enedina n [id number] Completed 201703/12/2021 Urinary frequenc y;Record ed Elsewher e: No Locat ion: [facility] S ource: EHR Title Lawyer michelle: N Practi ce ID: 0001 Jim lable Time: 03:00:00 PM Dina julien [facility] 16:39:22 Overweig ht [id number] Completed 201403/12/2021 Overweig ht;Recor ded Elsewher e: No Locat ion: [facility] S ource: EHR Title Lawyer michelle: N Practi ce ID: 0001 Jim lable Time: 03:15:00 PM Dina julien [facility] 16:39:26 Syphilis test finding [id number] Completed 201703/12/2021 Encntr screen for infectio ns w sexl mode of transmis s;Record ed Elsewher e: No Locat ion: [facility] S ource: EHR Title Lawyer michelle: N Practi ce ID: 0001 Jim lable Time: 03:00:00 PM Dina julien [facility] 16:39:43 Amenorrh ea [id number] Completed 201303/12/2021 AMENORRH EA;Pract ice ID: 0001 Dina Schaefer [facility] 16:39:11 Body mass index 25-29 - overweig ht [id number] Completed 201603/12/2021 Body mass index (BMI) 29.0-29. 9, adult;Re corded Elsewher e: No Locat ion: [facility] S ource: EHR Title Lawyer michelle: N Practi ce ID: 0001 Jim lable Time: 01:00:00 PM Dina Schaefer [facility] 1 16:39:14 Postpart um care Completed 201305/29/2014 Post Followup ;Recorde d Elsewher e: No Locat ion: [facility] S ource: EHR Title Lawyer michelle: N Practi ce ID: 0001 Jim lable Time: 10:00:00 AM Not Available [facility] 0 14:24:13 Infectio n screenin g Completed 201603/12/2021 Encounte r for screenin g for oth infec/pa rastc diseases ;Recorde d Elsewher e: No Locat ion: [facility] S ource: EHR Title Lawyer michelle: N Brendanti ce ID: 0001 Jim lable Time: 01:00:00 PM Dina Schaefer [facility] 1 16:39:23 Venereal disease screenin g Completed 201403/12/2021 Screenin g examinat ion for venereal disease; Recorded Elsewher e: No Locat ion: [facility] S ource: EHR Title Lawyer michelle: N Brendanti ce ID: 0001 Jim lable Time: 03:15:00 PM Dina Schaefer [facility] 1 16:39:46 Speciali zed medical examinat ion Completed 201403/12/2021 Other specifie d chlamydi al diseases ;Recorde d Elsewher e: No Locat ion: [facility] S ource: EHR Title Lawyer michelle: N Practi ce ID: 0001 Jim lable Time: 03:15:00 PM Dina Schaefer [facility], [facility] 16:39:41 Delivery normal [id number] Completed 201303/12/2021 Normal delivery ;Practic e ID: 0001 Dina Schaefer [facility] 1 16:39:20 Single live [id number] Completed 201303/12/2021 Mother with single liveborn ;Practic e ID: 0001 Dina Schaefer [facility], [facility] 16:39:34 Problem Notes None recorded. Procedures Surgical History Date Name Laterality Status Provider Name and Address Organization Details Recorded Time 4 repair of peroneal tendon completed [facility] 2023 12:32:43 3 Date of Last Mammogram completed [facility] 2023 12:03:25 2 Date of Last Pap Smear completed [facility] 2023 12:01:55 0 operation on lung completed Amelie Mathews [facility]- [address], [place], [address], [facility] 02/26/2020 14:48:50 Other completed Dina Schaefer [facility] 03/31/2022 16:07:35 Imaging Results Imaging Date Name Status LastModified by Organiz ation Details LastModified Time 06/30/2022 MAMMO, screening, bilateral completed [address], [address], 07/09/2022 16:14:15 06/30/2022 MAMMO, screening, bilateral completed [address] [place] [address], [address], 07/09/2022 16:14:16 07/24/2022 US, breast, bilateral completed [address] [place] [address], [address], 07/31/2022 07:31:21 Procedure Notes None recorded. Medical Equipment None Reported. Allergies Allergen ID Allergen Name Allergen Category Reaction Reaction Severity Criticality Documentation Date Start Date Code Code System Note Provider Name and Address Organization Details Recorded Time omeprazol e medicatio n hives Not available Not available 03/31/2022 7646 RxNorm Dina [facility] 2 16:08:58 Medications Name Sig Start Date Stop Date Status Note LastModified by Organization Details LastModified Time amoxicill in 500 mg capsule 03/12 completed Not Available Not Available Not Available methocarb dar 500 mg tablet active Not Available Not Available No t Available prednison e 10 mg tablet TAKE 2 TABLETS BY MOUTH EVERY DAY FOR 3 DAYS THEN TAKE 1 TABLET BY MOUTH EVERY DAY 06/15 completed Not Available Not Available Not Available doxycycli ne hyclate 100 mg capsule TAKE 1 CAPSULE BY MOUTH TWICE DAILY FOR 10 DAYS 06/15 completed Not Available Not Available Not Available irbesarta n 150 mg-hydroc hlorothia zide 12.5 mg tablet TAKE 1 TABLET BY MOUTH EVERY DAY active Not Available Not Available No t Available azithromy juan c 250 mg tablet TK 2 TS PO ON DAY 1, THEN TK 1 T PO D FOR 4 DAYS 06/15 completed Not Available Not Available Not Available fluconazo le 150 mg tablet TAKE 1 TABLET BY MOUTH 1 TIME 06/15 completed Not Available Not Available Not Available clarithro mycin 500 mg tablet TAKE 1 TABLET BY MOUTH EVERY 12 HOURS FOR 10 DAYS 03/31 completed Not Available Not Available Not Available hydrocodo ne 5 mg-acetam inophen 325 mg tablet TAKE 1 TABLET BY MOUTH EVERY 4 TO 6 HOURS NEEDED 03/31 completed Not Available Not Available Not Available fluconazo le 200 mg tablet TAKE ONE TABLET BY MOUTH FOR ONE DOSE 03/31 completed Not Available Not Available Not Available sucralfat e 1 gram tablet TAKE 1 BY MOUTH FOUR TIMES DAILY NEEDED 03/31 completed Not Available Not Available Not Available metronida zole 0.75 % (37.5 mg/5 gram) vaginal gel INSERT 1 APPLICAT ORFUL VAGINALL Y EVERY DAY AT BEDTIME FOR 5 NIGHTS 03/31 completed Not Available Not Available Not Available clindamyc in HCl 150 mg capsule TAKE 1 CAPSULE BY MOUTH FOUR TIMES DAILY 03/12 completed Not Available Not Available Not Available metronida zole 500 mg tablet TAKE 1 TABLET BY MOUTH TWICE DAILY FOR 7 DAYS active Not Available Not Available No t Available amlodipin e 5 mg tablet TAKE 1 TABLET BY MOUTH EVERY DAY 03/31 completed Not Available Not Available Not Available valacyclo vir 500 mg tablet TAKE 1 TABLET BY MOUTH TWICE DAILY FOR 3 DAYS 2023 active Not Available Not Available Not Avai lable omeprazol e 40 mg capsule,d elayed release TAKE 1 CAPSULE BY MOUTH TWICE DAILY BEFORE BREAKFAS T AND SUPPER 03/31 completed Not Available Not Available Not Available Nexium 20 mg capsule,d elayed release take 1 capsule by oral route every day 03/31 completed Prescrib ed Carlos e: Yes Loca tion: [facility] odify By: doug smith DateTime : 11/06/19 18 03:00:00 PM Not Available Not Available Not Available terconazo le 80 mg vaginal supposito ry INSERT ONE SUPPOSIT ORY VAGINALL Y ONCE DAILY FOR 3 DAYS 03/31 completed Not Available Not Available Not Available nystatin- triamcino lone 100,000 unit/gram -0.1 % topical ointment APPLY TOPICALL Y TO THE AFFECTED AREA TWICE DAILY FOR 7 DAYS 03/31 completed Not Available Not Available Not Available lorazepam 0.5 mg tablet TAKE ONE TABLET BY MOUTH PRIOR TO SCAN ON 08/15/2103/31 completed Not Available Not Available Not Available amlodipin e 10 mg tablet TAKE 1 TABLET BY MOUTH EVERY DAY 03/31 completed Not Available Not Available Not Available benzonata te 100 mg capsule TAKE 1 CAPSULE BY MOUTH TWICE DAILY NEEDED FOR COUGH 06/15 completed Not Available Not Available Not Available nortripty line 10 mg capsule active Not Available Not Available Not Available esomepraz ole magnesium 40 mg capsule,d elayed release TAKE 1 CAPSULE BY MOUTH TWICE DAILY BEFORE BREAKFAS T AND SUPPER active Not Available Not Available No t Available gabapenti n 300 mg capsule TAKE ONE CAPSULE BY MOUTH THREE TIMES DAILY 03/31 completed Not Available Not Available Not Available mupirocin 2 % topical ointment APPLY TOPICALL Y TO THE AFFECTED AREA THREE TIMES DAILY FOR 10 DAYS active Not Available Not Available No t Available irbesarta n 150 mg tablet TAKE 1 TABLET BY MOUTH EVERY DAY 06/15 completed Not Available Not Available Not Available polyethyl izabela glycol 3350 17 gram/dose oral powder DISSOLVE 17 GRAMS IN LIQUID AND DRINK BY MOUTH ONCE DAILY 03/31 completed Not Available Not Available Not Available methylpre dnisolone 4 mg tablets in a dose pack TAKE 6 TABLETS BY MOUTH THE FIRST DAY AND THE REMAININ G DIRECTED 03/31 completed Not Available Not Available Not Available hydrocodo ne 10 mg-chlorp heniramin e 8 mg/5 mL oral susp extend.re l 12hr TAKE 5ML BY MOUTH EVERY 12 HOURS NEEDED 06/15 completed Not Available Not Available Not Available albuterol sulfate HFA 90 mcg/actua tion aerosol inhaler INHALE 1 PUFF BY MOUTH FOUR TIMES DAILY NEEDED FOR SHORTNES S OF BREATH OR WHEEZING active Not Available Not Available No t Available Vitamin D2 1,250 mcg (50,000 unit) capsule take 1 capsule by oral route every week 05/29 completed Prescrib ed Elsewher e: No Locat ion: [facility] odify By: [email or web address] Jackson ncounter DateTime : 02/15/20 01:10:28 PM Not Available Not Available Not Available ondansetr on 4 mg disintegr ating tablet DISSOLVE 1 TABLET ON THE TONGUE EVERY 8 HOURS NEEDED FOR NAUSEA OR VOMITING 06/15 completed Not Available Not Available Not Available oxycodone 5 mg tablet 06/15 completed Not Available Not Available Not Available erythromy juan c with ethanol 2 % topical gel apply by topical route 2 times every day a thin layer to the affected area(s) in the morning and evening 10/14 completed Prescrib ed Elsewher e: No Locat ion: [facility] odify By: [email or web address] Encounte r DateTime : 12/13/19 14 10:16:11 AM Not Available Not Available Not Available azithromy juan c 500 mg tablet 06/15 completed Not Available Not Available Not Available Pepcid active Not Available Not Availa ble Not Available Nexium 03/13 completed Not Available Not Available Not Available cholecalc iferol (vitamin D3) 1,250 mcg (50,000 unit) capsule TAKE 1 CAPSULE BY MOUTH EVERY WEEK 03/31 completed Not Available Not Available Not Available Protonix 40 mg granules delayed-r elease packet take 1 packet by oral route every day mixed in 1 teaspoon ful of applesau ce or apple juice 03/31 completed Prescrib ed Elsewher e: Yes Loca tion: [facility] odify By: doug Jackson ncounter DateTime : 11/06/19 18 03:00:00 PM Not Available Not Available Not Available GaviLyte- G 236 gram-22.7 4 gram-6.74 gram-5.86 gram oral solution active Not Available Not Available Not Available Triveen-D uo DHA 29 mg-1 mg-400 mg oral pack take 1 by Oral route every day 10/12 completed Prescrib ed Elsewher e: No Locat ion: [facility] odify By: radha duckworth DateTime : 12/13/19 14 10:16:11 AM Not Available Not Available Not Available Caltrate with Vitamin D3 600 mg-20 mcg (800 unit) tablet 06/15 completed Prescrib ed Elsewher e: Yes Loca tion: [facility] odify By: doug Jackson ncounter DateTime : 11/06/19 18 03:00:00 PM Not Available Not Available Not Available Virtussin AC 10 mg-100 mg/5 mL oral liquid 02/25 completed Not Available Not Available Not Available Isibloom 0.15 mg-0.03 mg tablet TAKE 1 TABLET BY MOUTH EVERY DAY active Not Available Not Available No t Available Breztri Aerospher e 160 mcg-9mcg- 4.8mcg/ac tuation HFA aerosol inhaler INHALE 2 PUFFS BY MOUTH TWICE DAILY. active Not Available Not Available No t Available Vitals Date Recorded Body height Body mass index (BMI) Body weight Provider Name and Address Organization Details Last Updated DateTime 03/13/2021 161.29 cm 32.3 kg/m2 81832.59 g Dina Schaefer [facility] 03/13/2021 11:09:24 Date Recorded Systolic blood pressure Diastolic blood pressure Provider Name and Address Organization Details Last Updated DateTime 03/13/2021 124 mm[Hg] 80 mm[Hg] Amelie Mathews, [facility] [address], [place], [address], [facility] 03/13/2021 11:27:14 Date Recorded Body height Body weight Body mass index (BMI) Systolic blood pressure Diastolic blood pressure Provider Name and Address Organization Details Last Updated DateTime 03/31/2022 162.56 cm 31856.96 g 32.4 kg/m2 108 mm[Hg] 70 mm[Hg] Dina Schaefer [facility] 16:07:11 Date Recorded Body height Body mass index (BMI) Body weight Systolic blood pressure Diastolic blood pressure Provider Name and Address Organization Details Last Updated DateTime 2023 162.56 cm 32.4 kg/m2 01172.96 g 126 mm[Hg] 82 mm[Hg] Lisa Nicholas [facility] 12:28:06 Date Recorded Body height Body mass index (BMI) Body weight Provider Name and Address Organization Details Last Updated DateTime 02/26/2020 162.56 cm 31.8 kg/m2 25585.59 g Etta Parker [facility] 02/26/2020 14:22:55 Date Recorded Systolic blood pressure Diastolic blood pressure Provider Name and Address Organization Details Last Updated DateTime 02/26/2020 120 mm[Hg] 76 mm[Hg] Amelie Mathews, [facility] [address], [place], [address], [facility] 02/26/2020 14:49:11 Social History Question Answer Notes LastModified by Organizat ion Details LastModified Time Tobacco Smoking Status Never Smoker Verna julien, [facility] 2023 12:19:45 Do You Have An Advance Directive? No Information not available 03/13/2021 What Is Your Level Of Alcohol Consumption? None Information not available 03/12/2021 Are You Blind Or Do You Have Difficulty Seeing? No Information not available 03/12/2021 What Is Your Level Of Caffeine Consumption? Occasional Information not available 03/12/2021 How Much Tobacco Do You Chew? None Information not available 03/13/2021 In The 14 Days Before Symptom Onset, Have You Had Close Contact With A Laboratory-confir med COVID-19 While That Case Was Ill? No Information not available 03/13/2021 In The 14 Days Before Symptom Onset, Have You Had Close Contact With A Person Who Is Under Investigation For COVID-19 While That Person Was Ill? No Information not available 03/13/2021 Have You Been To An Area Known To Be High Risk For COVID-19? No Information not available 03/13/2021 Are You Deaf Or Do You Have Serious Difficulty Hearing? No Information not available 03/12/2021 What Type Of Diet Are You Following? REGULAR Information not available 03/12/2021 What Is The Highest Grade Or Level Of School You Have Completed Or The Highest Degree You Have Received? 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 No Information not available 03/13/2021 Do You Use Protection During Sex? No Information not available 03/13/2021 Do You Use Your Seat Belt Or Car Seat Routinely? Yes Information not available 03/12/2021 Do You Have Smoke And Carbon Monoxide Detectors In Your Home? Yes Information not available 03/12/2021 How Much Tobacco Do You Smoke? No Information not available 03/13/2021 Do You Feel Stressed (tense, Restless, Nervous, Or Anxious, Or Unable To Sleep At Night)? [id number] Information not available 03/12/2021 Do You Use Any Illicit Or Recreational Drugs? No Information not available 03/12/2021 Do You Use Sunscreen Routinely? No Information not available 03/13/2021 Have You Used IV Drugs? No Information not available 03/13/2021 Sex: Unknown Functional Status Question Answer Note LastModified by Organizat ion Details LastModified Time Do you have difficulty walking or climbing stairs? No Information not available 2023 Are you able to walk? YESWOREST Information not available 03/12/2021 Are you able to care for yourself? Yes [email or web address] Information not available 2023 Do you have difficulty dressing or bathing? No [email or web address] Information not available 2023 What is your exercise level? Occasional Information not available 03/31/2022 Mental Status None recorded. Family History Relationship Description Onset Age of this Age Resolved Age Notes LastModified by Organization Details LastModified Time Mother Hypertensive disorder [email or web address] Not available 2019 14:24:21 Paternal Grandfather Diabetes mellitus [email or web address] Not available 2019 14:24:26 Maternal Grandfather Carcinoma in situ of lung Not available 12:19:45 Maternal Aunt Carcinoma in situ of breast Not available 2023 12:19:45 Maternal Aunt Seizure disorder [email or web address] Not available 2023 12:19:45 Medical History Condition Response Other Y Acid Reflux (GERD) Y Cancer Y Anemia Y Hypertension Y Gynecological History Statement/Question Response Flow Moderate Date of Last Mammogram 07/24/2022 Date of LMP 05/31/2023 N On BCP's at Conception? Y STIs/STDs Yes Was last menstrual period normal Y HPV Vaccine N Duration of Flow (days) 4 Current Control Method BCPs Date of control 05/03/2014 Are cycles usually normal Y Frequency of Cycle (Q days) 28 Sexually Active? Y BCPs Menses Monthly Y Age of first menstrual cycle 14 Date of Last Pap Smear 03/31/2022 Sexual Problems? N LMP Definite Desired Control Method BCPs N Obstetrics History GPAL:G 5 P 0 0 1 4 Type Value Induced 1 Living 4 Total 5 Past Encounters Encounter ID Performer Location Encounter Start Date Encounter Closed Date Diagnosis/Indication Diagnosis SNOMED-CT Code Diagnosis ICD10 Code Diagnosis Note [id number] [facility] [address] [address] 02/26/2020 14:07:15 02/26/2020 14:52:31 Gynecologic examination 96879094 Z01.419 Take Calcium with Vitamin D 1200mg daily if not receiving in daily diet. It is strongly advised to have an annual flu shot and up can obtain at most pharmacies . If you have not had a TDap shot in the last 10 years you should obtain one as well. Discussed with patient & provided with informatio n regarding Gardisil vaccine to prevent the 4 strains for HPV that cause cervical cancer if under age 26. Encourage safe sexual practices, to use condoms and limit partners if not already in a monogamous relationsh ip. Do monthly self breast exams. Have mammogram yearly or every other year depending on family history. BRCA testing is now available for patients with strong genetic history of female cancer. If interested contact the office. Engage in daily exercise of low impact aerobic exercise 45-60 minutes 4-5 times weekly. Avoid tobacco and illicit drugs as well as using moderation with alcohol intake less than 1-2 8 oz beverages daily. This lifestyle behavior pattern will lead to less health conditions and longer life span. If BMI greater than 25 weight watchers or dietary consult advised. Patient received above instructio ns, and questions have been answered. If you have any questions please call or respond to this email. Patient was made aware of the patient portal and may obtain a paper copy of today's plan if desired. [id number] Amelie Mathews , [facility] [address],[facility] [place] [address] 03/13/2021 10:39:37 03/13/2021 12:39:00 Gynecologic examination [id number] Z01.419 Take Calcium with Vitamin D 1200mg daily if not receiving in daily diet. It is strongly advised to have an annual flu shot and up can obtain at most pharmacies . If you have not had a TDap shot in the last 10 years you should obtain one as well. Discussed with patient & provided with informatio n regarding Gardisil vaccine to prevent the 4 strains for HPV that cause cervical cancer if under age 26. Encourage safe sexual practices, to use condoms and limit partners if not already in a monogamous relationsh ip. Do monthly self breast exams. Have mammogram yearly or every other year depending on family history. BRCA testing is now available for patients with strong genetic history of female cancer. If interested contact the office. Engage in daily exercise of low impact aerobic exercise 45-60 minutes 4-5 times weekly. Avoid tobacco and illicit drugs as well as using moderation with alcohol intake less than 1-2 8 oz beverages daily. This lifestyle behavior pattern will lead to less health conditions and longer life span. If BMI greater than 25 weight watchers or dietary consult advised. Patient received above instructio ns, and questions have been answered. If you have any questions please call or respond to this email. Patient was made aware of the patient portal and may obtain a paper copy of today's plan if desired. Pap/hpv sentSTD sentMammo due next year Menorrhagia [id number] N9 2.0 Feels she had a sensitivit y to the change in generic.We will order Sari ADAMS.Specia list she is seeing for liver issues/negar green oncologist aware she is on control. Vaginitis 10080126 N76.0 VCG's sheet givenTreat ed yeast on exam [id number] Amelie Mathews , [facility] [address] [address] 03/31/2022 15:43:53 03/31/2022 16:28:54 Gynecologic examination [id number] Z01.419 Z11.51 Take Calcium with Vitamin D 1200mg daily if not receiving in daily diet. It is strongly advised to have an annual flu shot and up can obtain at most pharmacies . If you have not had a TDap shot in the last 10 years you should obtain one as well. Discussed with patient & provided with informatio n regarding Gardisil vaccine to prevent the 4 strains for HPV that cause cervical cancer if under age 26. Encourage safe sexual practices, to use condoms and limit partners if not already in a monogamous relationsh ip. Do monthly self breast exams. Have mammogram yearly or every other year depending on family history. BRCA testing is now available for patients with strong genetic history of female cancer. If interested contact the office. Engage in daily exercise of low impact aerobic exercise 45-60 minutes 4-5 times weekly. Avoid tobacco and illicit drugs as well as using moderation with alcohol intake less than 1-2 8 oz beverages daily. This lifestyle behavior pattern will lead to less health conditions and longer life span. If BMI greater than 25 weight watchers or dietary consult advised. Patient received above instructio ns, and questions have been answered. If you have any questions please call or respond to this email. Patient was made aware of the patient portal and may obtain a paper copy of today's plan if desired.Pa p/hpv sentSTD Screen sentGeneti c Screen discussedC olon Screen naDexa Screen naRoutine Labs PCPMammo ordered Contracept ion care management [id number] Z30.9 [id number] Amelie Mathews , [facility] [address] [address] 2023 12:19:18 2023 12:50:45 Gynecologic examination [id number] Z11.51 Z11.3 Z11.8 Take Calcium with Vitamin D 1200mg daily if not receiving in daily diet. It is strongly advised to have an annual flu shot and up can obtain at most pharmacies . If you have not had a TDap shot in the last 10 years you should obtain one as well. Discussed with patient & provided with informatio n regarding Gardisil vaccine to prevent the 4 strains for HPV that cause cervical cancer if under age 26. Encourage safe sexual practices, to use condoms and limit partners if not already in a monogamous relationsh ip. Do monthly self breast exams. Have mammogram yearly or every other year depending on family history. BRCA testing is now available for patients with strong genetic history of female cancer. If interested contact the office. Engage in daily exercise of low impact aerobic exercise 45-60 minutes 4-5 times weekly. Avoid tobacco and illicit drugs as well as using moderation with alcohol intake less than 1-2 8 oz beverages daily. This lifestyle behavior pattern will lead to less health conditions and longer life span. If BMI greater than 25 weight watchers or dietary consult advised. Patient received above instructio ns, and questions have been answered. If you have any questions please call or respond to this email. Patient was made aware of the patient portal and may obtain a paper copy of today's plan if desired.Pa p/hpv sentSTD Screen sentGeneti c Screen discussedC olon Screen naDexa Screen naRoutine Labs PCPMammo ordered Contracept ion care management [id number] Z30.9 Happy on OCPWishes to continue.B P well managed. No issues Screening mammography 24 099547 Z12.31 Health Concerns Section Related Observation LastModified by Organization Detai ls LastModified Time None Recorded Concern Status LastModified by Organization Details LastModified Time None Recorded Advance Directives Directive N: Payers Encounter Date Sequence Insurance Name Policy Number Policy Sams Covered Member ID Sams Member ID Guarantor Name 02/26/2020 1 [place] [id number] Lisa Quiles [id number] Lisa Quiles 03/13/2021 1 [place] [id number] Lisa Quiles [id number] Lisa Quiles 03/31/2022 1 [place] [id number] Lisa Quiles [id number] Lisa Quiles 2023 1 [place] [id number] Lisa Quiles [id number] Lisa Quiles Notes Date Note Type Note Provider Name and Address Organization Details Recorded Time 02/26/2020 text/html Annual GYNReport ed bypatient.History:no gynecologic complaints Menstrual cycle:Normal menses Urinary symptoms:No hematuria; No incontinence Vulva:No genital lesion Vagina:Normal vaginal discharge Breast:No breast pain; No breast lump; No nipple discharge Current Contraception:Satisf ied with current contraception; Monogamous relationship; Oral contraceptives Sexual complaints:No sexual complaints; No pain during intercourse; Normal libido Menopausal Symptoms:No menopausal symptoms; Normal vaginal lubrication Psychological symptoms:No depression; No anxiety; No PMDD Preventive measures:Encourage self breast examination; Encourage regular exercise; Encourage no tobacco use; Encourage regular mammograms starting age 40; Followed with Q3 year pap smear and high risk HPV typing Amelie Mathews [facility] [address], [place], [address], [facility] 02/26/2020 14:52:26 03/13/2021 text/html Annual GYNReport ed bypatient.Menstrual cycle:Normal menses Urinary symptoms:No hematuria; No incontinence Vulva:No genital lesion Vagina:Normal vaginal discharge Breast:No breast pain; No breast lump; No nipple discharge Current Contraception:[place] mous relationship; Oral contraceptives (OCP was changed to different generic & feels it has effected her period.) Sexual complaints:No sexual complaints; No pain during intercourse; Normal libido Menopausal Symptoms:No menopausal symptoms; Normal vaginal lubrication Psychological symptoms:No depression; No anxiety; No PMDD Preventive measures:Encourage self breast examination; Encourage regular exercise; Encourage no tobacco use; Encourage regular mammograms starting age 40; Followed with Q3 year pap smear and high risk HPV typing [facility]ws [facility] [address], [place], [address], [facility] 03/13/2021 12:33:37 03/31/2022 text/html Annual GYNReport ed bypatient.History:no gynecologic complaints Menstrual cycle:Normal menses Urinary symptoms:No hematuria; No incontinence Vulva:No genital lesion Vagina:Normal vaginal discharge Breast:No breast pain; No breast lump; No nipple discharge Current Contraception:Satisf ied with current contraception; Oral contraceptives Sexual complaints:No sexual complaints; No pain during intercourse; Normal libido Menopausal Symptoms:No menopausal symptoms; Normal vaginal lubrication Psychological symptoms:No depression; No anxiety; No PMDD Preventive measures:Encourage self breast examination; Encourage regular exercise; Encourage no tobacco use; Encourage regular mammograms starting age 40; Followed with yearly pap smears; Needs to schedule mammogram Amelie Mathews [facility] [address], [place], [address], [facility] 03/31/2022 16:28:51 2023 text/html Annual GYNReport ed bypatient.Menstrual cycle:Normal menses Urinary symptoms:No hematuria; No incontinence Vulva:No genital lesion Vagina:Normal vaginal discharge Breast:No breast pain; No breast lump; No nipple discharge Sexual complaints:No sexual complaints; No pain during intercourse; Normal libido Menopausal Symptoms:No menopausal symptoms; Normal vaginal lubrication Psychological symptoms:No depression; No anxiety; No PMDD Preventive measures:Encourage self breast examination; Encourage regular exercise; Encourage no tobacco use; Encourage regular mammograms starting age 40; Followed with yearly pap smears; Needs to schedule mammogram Amelie Mathews [facility] [address], [place], [address], [facility] 2023 12:50:34 OBGyn Episode Ob Episode Information Episode Created Date Number of Fetuses Patient Bloodtype Patient rh Status Prepregnancy Weight lbs Domestic Partner Domestic Partner Phone Father Name Dedicated Driver Status 02/26/20 20 1 CLOSED Fetus Data First Name Last Name Admitted to NICU Weight (g) Sex Living Outcome Pediatric Complications Fetus ID Race Codes Race Delivery Type [id number] Vaginal Delivery Musa Calculation Initial Musa Date Initial Exam Date Initial Exam Provider Initial Ultrasound Date Last Menstrual Period Date Ultra Sound Weeks Gestation 0 Eighteen To Twenty Week Musa Update Ultra Sound Date Fundal Height At Umbil Quickening Date Ultra Sound Latest Weeks Gestation Final Musa Confirmed By Final Musa Confirmed Date Final Musa Date Ultra Sound Latest Days Gestation 0 0 Menstrual History Last Menstrual Date Menses Monthly On Bcp Conception Prior Menses Frequency Hcg Plus Date Menarche Onset Age Delivery Information Delivery Date Delivery Type Labor Anesthesia Weeks Gestation Incision Type Labor Labor Length Hrs Delivered By Post Complications Tubal Sterilization Discharge Date Comments 9 Discharge Information Feeding Method Contraceptive Method Maternal HG B and HCT Levels Ob Episode Information Episode Created Date Number of Fetuses Patient Bloodtype Patient rh Status Prepregnancy Weight lbs Domestic Partner Domestic Partner Phone Father Name Dedicated Driver Status 02/26/20 20 1 CLOSED Fetus Data First Name Last Name Admitted to NICU Weight (g) Sex Living Outcome Pediatric Complications Fetus ID Race Codes Race Delivery Type [id number] Vaginal Delivery Musa Calculation Initial Musa Date Initial Exam Date Initial Exam Provider Initial Ultrasound Date Last Menstrual Period Date Ultra Sound Weeks Gestation 0 Eighteen To Twenty Week Musa Update Ultra Sound Date Fundal Height At Umbil Quickening Date Ultra Sound Latest Weeks Gestation Final Musa Confirmed By Final Musa Confirmed Date Final Musa Date Ultra Sound Latest Days Gestation 0 0 Menstrual History Last Menstrual Date Menses Monthly On Bcp Conception Prior Menses Frequency Hcg Plus Date Menarche Onset Age Delivery Information Delivery Date Delivery Type Labor Anesthesia Weeks Gestation Incision Type Labor Labor Length Hrs Delivered By Post Complications Tubal Sterilization Discharge Date Comments 3 Discharge Information Feeding Method Contraceptive Method Maternal HG B and HCT Levels Ob Episode Information Episode Created Date Number of Fetuses Patient Bloodtype Patient rh Status Prepregnancy Weight lbs Domestic Partner Domestic Partner Phone Father Name Dedicated Driver Status 02/26/20 20 1 CLOSED Fetus Data First Name Last Name Admitted to NICU Weight (g) Sex Living Outcome Pediatric Complications Fetus ID Race Codes Race Delivery Type [id number] Vaginal Delivery Musa Calculation Initial Musa Date Initial Exam Date Initial Exam Provider Initial Ultrasound Date Last Menstrual Period Date Ultra Sound Weeks Gestation 0 Eighteen To Twenty Week Musa Update Ultra Sound Date Fundal Height At Umbil Quickening Date Ultra Sound Latest Weeks Gestation Final Musa Confirmed By Final Musa Confirmed Date Final Musa Date Ultra Sound Latest Days Gestation 0 0 Menstrual History Last Menstrual Date Menses Monthly On Bcp Conception Prior Menses Frequency Hcg Plus Date Menarche Onset Age Delivery Information Delivery Date Delivery Type Labor Anesthesia Weeks Gestation Incision Type Labor Labor Length Hrs Delivered By Post Complications Tubal Sterilization Discharge Date Comments 8 Discharge Information Feeding Method Contraceptive Method Maternal HG B and HCT Levels Ob Episode Information Episode Created Date Number of Fetuses Patient Bloodtype Patient rh Status Prepregnancy Weight lbs Domestic Partner Domestic Partner Phone Father Name Dedicated Driver Status 02/26/20 20 1 CLOSED Fetus Data First Name Last Name Admitted to NICU Weight (g) Sex Living Outcome Pediatric Complications Fetus ID Race Codes Race Delivery Type [id number] Vaginal Delivery Musa Calculation Initial Musa Date Initial Exam Date Initial Exam Provider Initial Ultrasound Date Last Menstrual Period Date Ultra Sound Weeks Gestation 0 Eighteen To Twenty Week Musa Update Ultra Sound Date Fundal Height At Umbil Quickening Date Ultra Sound Latest Weeks Gestation Final Musa Confirmed By Final Musa Confirmed Date Final Musa Date Ultra Sound Latest Days Gestation 0 0 Menstrual History Last Menstrual Date Menses Monthly On Bcp Conception Prior Menses Frequency Hcg Plus Date Menarche Onset Age Delivery Information Delivery Date Delivery Type Labor Anesthesia Weeks Gestation Incision Type Labor Labor Length Hrs Delivered By Post Complications Tubal Sterilization Discharge Date Comments 4 Discharge Information Feeding Method Contraceptive Method Maternal HG B and HCT Levels Ob Episode Information Episode Created Date Number of Fetuses Patient Bloodtype Patient rh Status Prepregnancy Weight lbs Domestic Partner Domestic Partner Phone Father Name Dedicated Driver Status 03/12/20 21 1 CLOSED Fetus Data First Name Last Name Admitted to NICU Weight (g) Sex Living Outcome Pediatric Complications Fetus ID Race Codes Race Delivery Type , Induced [id number] Musa Calculation Initial Musa Date Initial Exam Date Initial Exam Provider Initial Ultrasound Date Last Menstrual Period Date Ultra Sound Weeks Gestation 0 Eighteen To Twenty Week Musa Update Ultra Sound Date Fundal Height At Umbil Quickening Date Ultra Sound Latest Weeks Gestation Final Musa Confirmed By Final Musa Confirmed Date Final Musa Date Ultra Sound Latest Days Gestation 0 0 Menstrual History Last Menstrual Date Menses Monthly On Bcp Conception Prior Menses Frequency Hcg Plus Date Menarche Onset Age Delivery Information Delivery Date Delivery Type Labor Anesthesia Weeks Gestation Incision Type Labor Labor Length Hrs Delivered By Post Complications Tubal Sterilization Discharge Date Comments 1 Discharge Information Feeding Method Contraceptive Method Maternal HG B and HCT Levels
--- OUTSIDE RECORDS SUMMARY | 2024-08-16 19:07 | XMS_ITS | Clinical Summary ---
Author Organization [facility] Address [address] [place] [id number] Care Team Providers Care Radio Repairman Name Role Phone Rudy Seaman MD Primary Care Provider [phone] Allergies Active Allergy Reactions Criticality Noted Date Comments Amoxicillin Other (see comment) Low 03/22/2019 Causes yeast infections Causes yeast infections Causes yeast infections Omeprazole Hives 07/11/2021 Medications esomeprazole 20 MG capsule 40 mg. Active amLODIPine 10 MG tablet amlodipine 10 mg tablet TAKE 1 TABLET BY MOUTH EVERY DAY 07/14/19 22 Active cholecalcifero l 1.25 MG (05033 UT) capsule cholecalciferol (vitamin D3) 1,250 mcg (50,000 unit) capsule TAKE 1 CAPSULE BY MOUTH EVERY WEEK Active desogestrel-et hinyl estradiol 0.15-30 MG-MCG tablet Take 1 tablet by mouth. Active omeprazole 40 MG capsule omeprazole 40 mg capsule,delayed release TAKE 1 CAPSULE BY MOUTH TWICE DAILY BEFORE BREAKFAST AND SUPPER 06/18/19 22 Active polyethylene glycol 17 GM/SCOOP powder Take 17 g by mouth daily. 06/18/19 22 Active Active Problems Problem Noted Date Diagnosed Date Lumbar radiculopathy 12/10/2021 Abnormal MRI, lumbar spine 12/10/2021 Malignant carcinoid tumor of the bronchus and lung (CMS/HCC HHS/HCC) 12/10/2021 Chronic midline low back pain with left-sided sc iatica 12/10/2021 Hemangioma of spine 12/10/2021 Family History Medical History Relation Comments No Known Problems Father Hypertension Mother Relation Status Comments Father Mother Social History Tobacco Use Types Packs/Day Years Used Date Smoking Tobacco: Never Smokeless Tobacco: Never Tobacco Cessation:Counseling Given: No Alcohol Use Standard Drinks/Week Comments Not Currently 0 (1 standard drink = 0.6 oz pur e alcohol) PHQ-2 Answer Date Recorded PHQ-2 Score - If the patient scores above 3, please move on to questions 3-9 0 10/03/2021 Comments Unknown Sex and Gender Information Value Date Recorded Sex Assigned at Not on file Legal Sex Female 9:25 AM CDT Gender Identity Not on file Sexual Orientation Not on file Last Filed Vital Signs Vital Sign Reading Time Taken Comments Blood Pressure 138/85 02/26/2022 1:59 PM CDT Pulse 67 02/26/2022 1:59 PM CDT Temperature 36.8 C (98.3 F) 02/26/2022 1:59 PM CDT Respiratory Rate 18 10/03/2021 8:52 AM CDT Oxygen Saturation 98% 02/26/2022 1:59 PM CDT Inhaled Oxygen Concentration - - Weight 85.1 kg (187 lb 9.6 oz) 02/26/2022 1:59 P M CDT Height 162.6 cm (5' 4 ) 02/26/2022 1:59 PM CDT Body Mass Index 32.2 02/26/2022 1:59 PM CDT Plan of Treatment Health Maintenance Due Date Last Done Comments Annual Physical 1984 Hepatitis C 1999 DTaP, Tdap and Td Vaccines ( 1 - Tdap) 2000 Hepatitis B Vaccines (1 of 3 - 19+ 3-dose series) 2000 Cervical Cancer Screening Pa p with HPV Testing (Age 30 to 64) Every 5 Years 2011 Mammogram Screening 2021 COVID-19 Vaccine (3 - 2023-2 5 season) 2024 08/01/2020, 07/11/2020 Influenza Adult (#1) 2024 08/16/2019 Cervical Cancer Screening Pa p Smear (Age 30 to 64) Every 3 Years 03/13/2024 03/13/2021 Cervical Cancer Screening wi th HPV 03/13/2024 PHQ-2 (Physician [place]) 05/31/2024 HPV Vaccines Aged Out No longer eligi ble based on patient's age to complete this topic Meningococcal B Vaccine Aged Out No l onger eligible based on patient's age to complete this topic Meningococcal Vaccine Aged Out No sasha diego eligible based on patient's age to complete this topic Pneumococcal Vaccine: Pediatrics (0 to 5 Years) and At-Risk Patients (6 to 64 Years) Aged Out No longer eligible b ased on patient's age to complete this topic RSV Immunizations Under 20 Months Aged Out No longer eligible b ased on patient's age to complete this topic Insurance [facility] Care Teams Radio Repairman Relationship Specialty Start Date End Date Rudy Seamna MD PCP - General FAMILY PRACTICE 12/18/20
--- OUTSIDE RECORDS SUMMARY | 2024-08-16 19:07 | XMS_ITS | Referral Summary ---
Author Organization [facility] Address [address] [place] [address] Care Team Providers Care R[employer]her [employer]chant [employer] Name Role Phone Rudy Seaman MD Primary Care Provider [phone] Allergies Active Allergy Reactions Criticality Noted Date Comments Amoxicillin Other (See comments) Low 03/22/2019 Causes yeast infections Omeprazole Hives,Urticaria Medium 07/11/2021 Medications desogestrel-ethiny l estradiol (APRI) 0.15-0.03 mg per tabletIndications: Contraception Take 1 tablet by mouth every morning Active nortriptyline (PAMELOR) 10 mg capsuleIndications :Neuropathic pain,Left leg pain Take 1 capsule (10 mg total) by mouth nightly 90 capsule 3 3 Active albuterol HFA (PROVENTIL HFA,VENTOLIN HFA,PROAIR HFA) 90 mcg/actuation inhalerIndications :Bronchospasm Prevention Inhale 2 puffs as needed for shortness of breath or wheezing 3 Active Breztri Aerosphere 160-9-4.8 mcg/actuation HFA aerosol inhalerIndications :SOB Inhale 2 puffs as needed (SOB) [address] (NexIUM) 40 mg capsuleIndications :Treatment of Non-Bleeding Gastric Disorder Take 1 capsule (40 mg total) by mouth 2 (two) times a day Active acetaminophen (TYLENOL) 500 mg tablet Take 1 tablet (500 mg total) by mouth every 6 (six) hours 30 tablet 4 Active naproxen (ALEVE) 220 mg tablet Take 1 tablet (220 mg total) by mouth 2 (two) times a day with meals 14 tablet 4 Active irbesartan-hydroch lorothiazide (AVALIDE) 150-12.5 mg per tablet Take 1 tablet by mouth daily 3 Active polyethylene glycol (MIRALAX) 17 gram/dose bulk powder DISSOLVE 17 GRAMS IN LIQUID AND DRINK BY MOUTH ONCE DAILY Active valACYclovir (VALTREX) 500 mg tablet TAKE 1 TABLET BY MOUTH TWICE DAILY FOR 3 DAYS 4 Active Active Problems Problem Noted Date Diagnosed Date Muscle spasm of back 04/27/2023 Pain of left lower extremity 04/07/2023 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 02/23/2023 Carcinoid tumor of left lung 11/03/202210/2022 Abnormal MRI, lumbar spine 12/10/202111/03 Chronic midline low back pain with left-sided sc iatica 12/10/2021 11/03/2022 Hemangioma of spine 12/10/2021 11/03/2022 Lumbar radiculopathy 12/10/2021 11/03/2022 Complete lesion of L1 level of lumbar spinal cor d 09/25/2021 11/03/2022 Iron deficiency 08/07/2021 11/03/2022 Vitamin D deficiency 08/07/2021 11/03/2022 Hiatal hernia 12/27/2020 Liver lesion 11/28/2020 11/03/2022 Left leg pain 07/23/2020 Malignant carcinoid tumor of the bronchus and dean ng 07/21/2019 11/03/2022 Malignant neoplasm of lung 05/30/2019 Gastroesophageal reflux disease 04/12/2019 11/03/2022 Increased frequency of urination 11/05/2017 Overview (06/03/2023): Urinary frequency;Recorded Elsewhere: No Location: [facility] Source: EHR Chronic: N Practice ID: [id number] Billable Time: 03:00:00 PM Obesity with body mass index 30 or greater 11/05 Overview (06/03/2023): Body mass index (BMI) 31.0-31.9, adult;Recorded Elsewhere: No Location: [facility] Source: EHR Chronic: N Practice ID: [id number] Billable Time: 03:00:00 PM Overweight with body mass index (BMI) 25.0-29.9 11/03/2016 Overview (06/03/2023): Body mass index (BMI) 29.0-29.9, adult;Recorded Elsewhere: No Location: [facility] Source: EHR Chronic: N Practice ID: [id number] Billable Time: 01:00:00 PM Overweight 10/12/2014 Overview (06/03/2023): Overweight;Recorded Elsewhere: No Location: [facility] Source: EHR Chronic: N Practice ID: [id number] Billable Time: 03:15:00 PM Delivery normal 05/01/2014 Overview (06/03/2023): Normal delivery;Practice ID: [id number] Intrauterine growth restrict ion (IUGR) affecting care of mother 03/15/2014 Overview (06/03/2023): GROWTH POOR SGA;Practice ID: [id number] Congenital malformation 12/18/2013 Overview (06/03/2023): screening for malformation using ultrasonics;Practice ID: [id number] Amenorrhea 10/04/2013 Overview (06/03/2023): AMENORRHEA;Practice ID: [id number] Immunizations Immunization Administration Dates Next Due Influenza, Quadrivalent, Gale l Culture-based MDCK, Antibiotic Free, Intramuscular 08/16/2019 Influenza, Quadrivalent, Spl it, Preservative Free, Intramuscular 08/16/2019 Pfizer SARS-CoV-2 Monovalent Vaccination (12+ Yrs) PURPLE 07/11/2020 Social History Tobacco Use Types Packs/Day Years Used Date Smoking Tobacco: Never Smokeless Tobacco: Never Tobacco Cessation:Counseling Given: Not Answered Alcohol Use Standard Drinks/Week Comments Yes 0 (1 standard drink = 0.6 oz pur e alcohol) AUDIT-C Answer Date Recorded Q1: How often do you have a drink containing alc ohol? Monthly or less 10/07/2023 Q2: How many drinks containi ng alcohol do you have on a typical day when you are drinking? 1 or 2 10/07/2023 Q3: How often do you have si x or more drinks on one occasion? Never 10/07/2023 Personal Safety Answer Date Recorded Have you ever been in or are you currently in a harmful physical or emotional relationship or is someone making you feel afraid or unsafe? Denies 06/02/2023 Comments No Sex and Gender Information Value Date Recorded Sex Assigned at Not on file Legal Sex Female 9:23 PM GYN Gender Identity Not on file Sexual Orientation Not on file Last Filed Vital Signs Vital Sign Reading Time Taken Comments Blood Pressure 106/80 12/28/2023 6:25 PM CDT Pulse 75 12/28/2023 6:25 PM CDT Temperature 36.8 C (98.3 F) 12/28/2023 6:25 PM CDT Respiratory Rate 16 12/28/2023 6:25 PM CDT Oxygen Saturation 98% 12/28/2023 6:25 PM CDT Inhaled Oxygen Concentration - - Weight 86.6 kg (191 lb) 12/28/2023 6:25 PM CDT Height 162.6 cm (5' 4 ) 12/28/2023 6:25 PM CDT Body Mass Index 32.79 12/28/2023 6:25 PM CDT Plan of Treatment Not on file Goals Goal Patient Goal Type Associated Problems Recent Progress Patient-Stated? Author CCM Chronic Pain Care Plan Chronic Care Management Improving( 10:22 AM CDT) Isaiah Matias, SADIA Note: Problem: Chronic Pain Goals: 1. Minimize further functional decline 2. Maximize quality of life 3. Control pain Strategies: - Activity/exercise program recommendation - Conservative stepwise pain medicine strategy with multi-disciplinary approach - Recommend healthy lifestyle strategies and compensatory methods as needed Insurance [facility] [employer] [place] [employer] Care Teams [employer] Relationship Specialty Start Date End Date Rudy Seaman MD [address] [place] [address] PCP - General Family Medicine 04/02/20
--- OUTSIDE RECORDS SUMMARY | 2024-08-16 19:07 | XMS_ITS | Clinical Summary ---
Author Organization [facility] Address [address] [place] [address] Care Team Providers Care Internet Technology Manager Name Role Phone Rudy Seaman MD Primary Care Provider [phone] Allergies Active Allergy Reactions Criticality Noted Date [...] Overview (06/03/2023): Urinary frequency;Recorded Elsewhere: No Location: [facility] Source: EHR Chronic: N Practice ID: [id number] Billable Time: 03:00:00 PM Obesity with body mass index 30 or greater 11/05 Overview (06/03/2023): Body mass index (BMI) 31.0-31.9, adult;Recorded Elsewhere: No Location: [facility] Source: EHR Chronic: N Practice ID: [id number] Billable Time: 03:00:00 PM Overweight with body mass index (BMI) 25.0-29.9 11/03/2016 Overview (06/03/2023): Body mass index (BMI) 29.0-29.9, adult;Recorded Elsewhere: No Location: [facility] Source: EHR Chronic: N Practice ID: [id number] Billable Time: 01:00:00 PM Overweight 10/12/2014 Overview (06/03/2023): Overweight;Recorded Elsewhere: No Location: [facility] Source: EHR Chronic: N Practice ID: [...] SARS-CoV-2 Monovalent Vaccination (12+ Yrs) PURPLE 07/11/2020 Surgical History Surgery Date Site/Laterality Comments LOBECTOMY 08/15/2019 Left ORAL SURGERY 05/31/2020 - 05/30/2021 wisdom teeth removal x1 UPPER GASTROINTESTINAL ENDOSCOPY BRONCHOSCOPY COLONOSCOPY 05/31/2022 - 05/30/2023 PERONEAL NERVE DECOMPRESSION Left Medical History Medical History Date Comments GERD (gastroesophageal reflux disease) Hernia, abdominal Anemia Gastric reflux Hiatal hernia Hypertension Cancer (HCC) Left knee pain Family History Medical History Relation Name Comments Hypertension Mother Cancer Other Heart disease Other Relation Name Status Comments Mother Other Social History Tobacco Use Types Packs/Day Years [...] on file Legal Sex Female 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 [employer] Gender Identity Not on file Sexual Orientation Not on file Obstetrics History Last Filed Vital Signs Vital Sign Reading [...] 12/28/2023 6:25 PM CDT Plan of Treatment Health Maintenance Due Date Last Done Comments Cervical Cancer Screening 1981 Depression Screening 1981 Hepatitis C Screening 1981 DTaP/Tdap/Td Vaccine (1 - Tdap) 1992 Varicella Vaccines (1 of 2 - 13+ 2-dose series) 1994 Hepatitis B Screening 1999 Regular Well Visit/Exam 18-64 1999 Pneumococcal vaccine <65 (1 of 2 - PCV) 2000 Breast Cancer Screening-Mammogram 07/01/2023 07/01/2022, 06/30/2022 Covid-19 Vaccine (2 - 2023-2 5 season) 2024 07/11/2020 Influenza Vaccine (#1) 2024 0, 08/16/2019 HPV Vaccines Aged Out No longer eligi ble based on patient's age to complete this topic Goals Goal Patient Goal Type Associated Problems [...] strategies and compensatory methods as needed Insurance [employer] [place] [employer] [place] [employer] [place] [employer] [place] [employer] Care Teams Internet Technology Manager Relationship Specialty Start Date End Date Rudy Seaman MD [address] [place] [address] PCP - General Family Medicine 04/02/20
--- OUTSIDE RECORDS SUMMARY | 2024-08-16 19:07 | XMS_ITS ---
Author Organization [facility] Address [address] [facility] [place] [address] Care Team Providers Care Facility Service Associate Name Role Phone Rudy Seaman MD Primary Care Provider [phone] Jordi Doan MD Unavailable [phone] Active Problems Problem Noted Date Diagnosed Date Hiatal hernia 12/27/2020 Liver lesion 11/28/2020 Malignant carcinoid tumor of the bronchus and dean ng 07/21/2019 Gastroesophageal reflux disease 04/12/2019 Carcinoid tumor of left lung Current Oncology Plans No current plan information found. Past Plans No past plan information found. Radiation Treatments * No radiation treatments are documented for this patient in [facility]. Treatments may have been administered in another system. Lifetime Dose Tracking * Chemical Lifetime Dose Automatic Entry Manual Entr y Dose Length Product 2,383.3 mGy-cm 2,383.3 mGy-cm 0 mG y-cm
--- OUTSIDE RECORDS SUMMARY | 2024-08-16 19:07 | XMS_ITS | Clinical Summary ---
Author Organization [facility] Address [address] [place] [address] Phone Care Team Providers Care Tint Layer Name Role Phone Rudy Seaman Primary Care Provider [phone] Michael Hutson MD Unavailable [phone] Allergies Active Allergy Reactions Criticality Noted Date Comments Amoxicillin Other (see Comments) Low 03/22/2019 Causes yeast infections Omeprazole Hives Low 07/11/2021 Medications Desogestrel-Eth inyl Estradiol 0.15-30 MG-MCG Tablet Take 1 Tab by mouth. Active esomeprazole (NexIUM) 40 MG CAPSULE DELAYED RELEASE 2 times daily. 06/10/2020 Active polyethylene glycol (GLYCOLAX) 17 GM/SCOOP Powder DISSOLVE 17 GRAMS IN LIQUID AND DRINK BY MOUTH ONCE DAILY 06/18/2021 Active irbesartan-hydr oCHLOROthiazide (AVALIDE) 150-12.5 MG Tablet Take 1 Tablet by mouth daily. Active famotidine (PEPCID) 20 MG Tablet Take 20 mg by mouth. 10/07/2023 Active Active Problems Problem Noted Date Diagnosed [...] dean ng 07/21/2019 Gastroesophageal reflux disease 04/12/2019 Encounters Date Type Department Care Team Description 07/17/2024 10:00 AM HEALTH CARE COACH Clinical Support [facility] [address] [phone] Nurse, Hilary Ceballos Vitamin D deficiency (Primary Dx); Iron deficiency 07/17/2024 Travel 05/22/2024 3:30 PM HEALTH CARE COACH Clinical Support [facility] [address] [phone] Nurse, Cc Lin Vitamin D deficiency (Primary Dx); Iron deficiency 05/22/2024 Travel from Last 3 Months Immunizations Immunization Administration Dates Next Due Influenza, Injectable, Mdck, quadrivalent,with Preservative 08/16/2019 Family History Medical History Relation Name Comments Depression Brother No Known Problems Father Hypertension Mother Other-comment Sister Relation Name Status Comments Brother Alive Father Alive Mother Alive Sister Alive Sagastume's palsy Social History Tobacco Use Types Packs/Day Years Used Date Smoking Tobacco: Never Smokeless Tobacco: Never Tobacco Cessation:Counseling Given: Not Answered Alcohol Use Standard Drinks/Week Comments Never 0 (1 standard drink = 0.6 oz pur e alcohol) AUDIT-C Answer Date Recorded Frequency of Alcohol Consumption Never 07/21/2019 Average Number of Drinks Not on file 020 Frequency of Binge Drinking Not on file 07/02 PHQ-2 Answer Date Recorded Total Score - Questions 1-9 0 09/28 Education Answer Date Recorded What is the highest level of school you have completed or the highest degree you have received? 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 Not on file Not on file Not on file Last Filed Vital Signs Vital Sign Reading Time Taken Comments Blood Pressure 142/84 04/04/2024 9:10 AM HEALTH CARE COACH Pulse 71 02/18/2024 9:07 AM CDT Temperature 36.6 C (97.8 F) 02/18/2024 9:07 AM CDT Respiratory Rate 18 02/18/2024 9:07 AM CDT Oxygen Saturation 98% 02/18/2024 9:07 AM CDT Inhaled Oxygen Concentration - - Weight 87 kg (191 lb 14.4 oz) 02/18/2024 9:07 AM CDT Height 162.6 cm (5' 4 ) 02/18/2024 9:07 AM CDT Body Mass Index 32.94 02/18/2024 9:07 AM CDT Plan of Treatment Upcoming Encounters Date Type Department Care Team (Late st Contact Info) Description 08/18/2024 9:00 AM CDT Office Visit [facility] [address] [phone] Michael Hutson MD [address] [place] [address] [place] [id number] 08/18/2024 9:15 AM CDT Clinical Support [facility] [address] [phone] Nurse, Cc [facility] Health Maintenance Due Date Last Done Comments Hepatitis C Virus (HCV) Screening 1981 Mammogram 1981 TdaP Immunization 1981 Hepatitis B Immunization (1 of 3 - 19+ 3-dose series) 2000 Pneumococcal Immunization Combined (1 of 2 - PCV) 2000 Pap Smear 2002 Cervical Cancer Screening (CCS) 2011 HPV/Cotest 2011 SARS-COV-2 Immunization (3 - Pfizer risk series) 08/29/2020 08/01/2020, 07/11/2020 Discussion re Starting/Frequency of Mammograms 2021 Influenza Immunization (#1) 2024 08/16/2019 Respiratory Syncytial Virus (RSV) Immunization (Adult) (1 - 1-dose 75+ series) 2056 Meningococcal Immunization (ACWY) Aged Out No longer eligible b ased on patient's age to complete this topic Rotavirus Immunization Aged Out No lo nger eligible based on patient's age to complete this topic Insurance [facility] Care Teams Tint Layer Relationship Specialty Start Date End Date Rudy Seaman [address] [place] [address] PCP - General Family Medicine 07/21/19 Michael Hutson MD [address] [place] [phone] Consulting Physician Oncology 07/21/19
--- OUTSIDE RECORDS SUMMARY | 2024-08-16 19:07 | XMS_ITS | Clinical Summary ---
Author Organization [facility] Address [address] [place] [address] Care Team Providers Care Sheet Rocker Name Role Phone Rudy Seaman MD Primary Care Provider [phone] Jordi Doan MD Unavailable [phone] Source Comments [facility],non-owned Affiliates and Associated Physician Practices is amultiple site organization consisting of ambulatory clinics and hospital sitesin [place], [place], [place] and [place]. This disclosure is being madepursuant to the Care Everywhere program and may not contain all information available regarding this patient. Last updated 18.[facility] Allergies Active Allergy Reactions Criticality Noted Date Comments Amoxicillin Other Low 03/22/2019 Causes yeast infections Omeprazole Urticaria Medium 12/24/2021 Medications * Be aware that medications may not be up to date on this document. Alwaysverify current medications with the patient. Medication Sig Dispensed Refills Start Date End Date Status ISIBLOOM 0.15-30 MG-MCG tablet TK UTD PER PRESCRIBER OR PACKAGE INSTRUCTIONS 05/25/2019 Active irbesartan (Avapro) 150 MG tablet Take 1 (one) tablet by mouth every 24 hours 03/12/2022 Active famotidine (Pepcid) 20 MG tablet Take 1 (one) tablet by mouth 2 times daily as needed 60 tablet 3 10/07/2023 Active polyethylene glycol 3350 (Miralax) 17 GM/SCOOP powder DISSOLVE 17 GRAMS IN LIQUID AND DRINK BY MOUTH ONCE DAILY 10/07/2023 Active esomeprazole (NexIUM) 40 MG capsuleIndications :Gastroesophageal reflux disease without esophagitis Take 1 (one) capsule by mouth 2 times daily, before breakfast and supper 60 capsule 5 04/24/2024 Active calcium carbonate (Tums) 500 MG chew tablet Take 1 (one) tablet by mouth daily with food 1-2 times daily Active Active Problems Problem Noted Date Diagnosed Date Hiatal hernia 12/27/2020 Liver lesion 11/28/2020 Malignant carcinoid tumor of the bronchus and dean ng 07/21/2019 Gastroesophageal reflux disease 04/12/2019 Carcinoid tumor of left lung Encounters Date Type Department Care Team Description 08/03/2024 11:30 AM MAINTENANCE TECHNICIAN 2ND SHIFT - 08/03/2024 12:00 PM MAINTENANCE TECHNICIAN 2ND SHIFT Surgery [facility] [address] [place] [address] Lamonte David MD EGD w/ Manning---off ppi one week 08/03/2024 11:23 AM MAINTENANCE TECHNICIAN 2ND SHIFT Anesthesia Event [facility] [address] [place] [address] Petra Sethi MD Wise, William L, GUEST SERVICES AMBASSADOR-WATER RESOURCE MANAGER 08/03/2024 10:15 AM MAINTENANCE TECHNICIAN 2ND SHIFT - 08/03/2024 12:51 PM MAINTENANCE TECHNICIAN 2ND SHIFT Hospital Encounter [facility] [address] [place] [address] Lamonte David MD Surgery General Discharge Disposition: Home or Self Care 08/03/2024 Travel 07/27/2024 Patient Outreach [facility] [address] [place] [address] Valentina Fry, SADIA Pre-op Instructions 06/30/2024 Telephone [facility] [address] [place] [address] Micha Mendoza, SADIA Patient Education (Manning teaching attempt x1) 06/28/2024 10:00 AM MAINTENANCE TECHNICIAN 2ND SHIFT Office Visit [facility] - [facility] [address] [facility] [place] [address] Lamonte David MD Gastroesophageal reflux disease without esophagitis (Primary Dx) 06/28/2024 Travel from Last 3 Months Immunizations Name Administration Dates Next Due INFLUENZA VACCINE, QUADR. (F LUZONE; FLULAVAL; FLUARIX; AFLURIA QUADRIVALENT; 6MO+), 0.5 ML (IIV4) 08/16/2019 Social History Tobacco Use Types Packs/Day Years Used Date Smoking Tobacco: Never Smokeless Tobacco: Never Alcohol Use Standard Drinks/Week Comments Never 0 (1 standard drink = 0.6 oz pur e alcohol) AUDIT-C Answer Date Recorded Frequency of Alcohol Consumption Never 05/09/2019 Average Number of Drinks Not on file 019 Frequency of Binge Drinking Not on file 04/30 Sex and Gender Information Value Date Recorded Sex Assigned at Not on file Gender Identity Not on file Sexual Orientation Not on file Last Filed Vital Signs Vital Sign Reading Time Taken Comments Blood Pressure 119/84 08/03/2024 12:43 PM MAINTENANCE TECHNICIAN 2ND SHIFT Pulse 65 08/03/2024 12:30 PM MAINTENANCE TECHNICIAN 2ND SHIFT Temperature 36.1 C (97 F) 08/03/2024 11:46 AM MAINTENANCE TECHNICIAN 2ND SHIFT Respiratory Rate 16 08/03/2024 12:3 0 PM MAINTENANCE TECHNICIAN 2ND SHIFT Oxygen Saturation 99% 08/03/2024 12: 30 PM MAINTENANCE TECHNICIAN 2ND SHIFT Inhaled Oxygen Concentration - - Weight 88.4 kg (194 lb 12.8 oz) 025 10:52 AM MAINTENANCE TECHNICIAN 2ND SHIFT Height 162.6 cm (5' 4 ) 08/03/2024 10:5 2 AM MAINTENANCE TECHNICIAN 2ND SHIFT Body Mass Index 33.44 08/03/2024 10:52 AM MAINTENANCE TECHNICIAN 2ND SHIFT Plan of Treatment Upcoming Encounters Date Type Department Care Team (Late st Contact Info) Description 09/27/2024 10:00 AM CDT Office Visit [facility] - [address] [facility] [place] [phone] Lamonte David MD [address] [place] [phone] Health Maintenance Due Date Last Done Comments LIPID TESTING 1980 MAMMOGRAM 1980 HIV SCREENING 1996 HEPATITIS C SCREENING 06/11/1999 DTAP/TDAP/TD VACCINES (1 - Tdap) 2000 HEPATITIS B VACCINE (1 of 3 - 19+ 3-dose series) 2000 COVID-19 VACCINE (2 - 2023-2 5 season) 2024 07/11/2020 INFLUENZA VACCINE (#1) 2024 08/16/2019 SCREENING FOR DIABETES 02/09/2024 0, 08/15/2019, 06/01/2019 DEPRESSION SCREENING 05/31/2024 PAP SMEAR 2026 2023, 03/31/2022, 03/13/2021 ZOSTER VACCINE (1 of 2) 2031 HIB VACCINE Aged Out No longer eligi ble based on patient's age to complete this topic HPV VACCINE Aged Out No longer eligi ble based on patient's age to complete this topic MENINGOCOCCAL (Group B) VACCINE SHARED DECISION-MAKING Aged Out No longer eligible based on patient's age to complete this topic MENINGOCOCCAL GROUPS A/C/Y/W VACCINE Aged Out No longer eligible b ased on patient's age to complete this topic PNEUMOCOCCAL VACCINE Aged Out No long er eligible based on patient's age to complete this topic Goals Goal Patient Goal Type Associated Problems Recent Progress Patient-Stated? Author Medication Management General On track( 10:14 AM MAINTENANCE TECHNICIAN 2ND SHIFT) No Emily Eller, RN Note: Expected end date: ongoing Interventions: Take all medications as prescribed Let your doctor know right away about any changes in your medications Make sure to request a refill of your medication at least one week prior to your last dose Medication Management General On track( 025 10:14 AM MAINTENANCE TECHNICIAN 2ND SHIFT) No Susan Raya, SADIA Note: Expected end date: ongoing Interventions: Take all medications as prescribed Let your doctor know right away about any changes in your medications Make sure to request a refill of your medication at least one week prior to your last dose Procedures Procedure Name Priority Date/Time Associated Diagnosis Comments AL ESOPH LESLY TEST; W/NASAL CATH PH ELEC [facility] 08/03/2024 11:18 AM MAINTENANCE TECHNICIAN 2ND SHIFT Gastroesophageal reflux disease without esophagitis Special Needs Message Received: 2 days ago Yaima Colindres, Alia Headley, RN Please schedule for EGD with Manning placement. Plan to be off PPI for 1 week prior to EGD & 96 hours following placement. Thank you AL ED EGD FLEX TRANSORAL DX 08/03/2024 11:18 AM MAINTENANCE TECHNICIAN 2ND SHIFT Gastroesophageal reflux disease without esophagitis Special Needs Message Received: 2 days ago Yaima Colindres, CLEMENTINA Faye, Alia Rocha, RN Please schedule for EGD with Manning placement. Plan to be off PPI for 1 week prior to EGD & 96 hours following placement. Thank you EGD Routine 08/03/2024 11:05 AM MAINTENANCE TECHNICIAN 2ND SHIFT HCG URINE QUALITATIVE - POCT (IP) INTERFACED Routine 08/03/2024 10:47 AM MAINTENANCE TECHNICIAN 2ND SHIFT HCG URINE QUAL POCT NOTIFICATION STAT 08/03/2024 10:36 AM MAINTENANCE TECHNICIAN 2ND SHIFT Pre-op evaluation COMPREHENSIVE METABOLIC PANEL LAILA 08/15/2019 6:30 AM CDT Carcinoid tumor of left lung from Last 3 Months or Most Recently Relevant to Health Maintenance Results * EGD (08/03/2024 11:05 AM MAINTENANCE TECHNICIAN 2ND SHIFT) Report Endoscopy POC Endoscopy Department Report _ Patient Name: Lisa Quiles Procedure Date: 08/03/2024 11:05 AM Date of : 1980 Classification: Outpatient Gender: Female Ethnicity: Not or Race: Black or _ Providers: Lamonte David MD, Destiney Diaz MD (Fellow) Referring MD: Procedure: Upper GI endoscopy Indications: Heartburn, Abnormal MANNING pH capsule results Medications: Monitored Anesthesia Care Description of Procedure: Pre-Anesthesia Assessment: - ASA Grade Assessment: II - A patient with mild systemic disease. - After reviewing the risks and benefits, the patient was deemed in satisfactory condition to undergo the procedure. After obtaining informed consent, the endoscope was passed under direct vision. Throughout the procedure, the patient's blood pressure, pulse, and oxygen saturations were monitored continuously. The Endoscope was introduced through the mouth, and advanced to the second part of duodenum. The upper GI endoscopy was accomplished without difficulty. The patient tolerated the procedure well. Findings: The esophagus was normal. The examined duodenum was normal. Multiple 5 mm sessile polyps with no bleeding and no stigmata of recent bleeding were found in the gastric fundus. Estimated Blood Loss: Estimated blood loss: none. Complications: No immediate complications. Impression: - Normal esophagus. No evidence of erosive esophagitis. Manning capsul placed 6cm proximal to the LES. - Normal examined duodenum. - Multiple gastric polyps. - No specimens collected. Recommendation: - Advance diet as tolerated. Procedure Code(s): --- Professional --- 18908, Esophagogastrodu odenoscopy, flexible, transoral; diagnostic, including collection of specimen(s) by brushing or washing, when performed (separate procedure) Diagnosis Code(s): --- Professional --- K31.7, Polyp of stomach and duodenum R12, Heartburn R93.3, Abnormal findings on diagnostic imaging of other parts of digestive tract CPT copyright 2021 [employer]. All rights reserved. The codes documented in this report are preliminary and upon sewing pattern layout technician review may be revised to meet current compliance requirements. Lamonte David MD 08/03/2024 11:43:17 AM Note Initiated On: 08/03/2024 11:05 AM Number of Addenda: [id number] [place] [address] PROVJOSEPH 08/03/2024 11:0 5 AM MAINTENANCE TECHNICIAN 2ND SHIFT Lamonte David MD GI PROCEDURE ORDERAB LES [facility] * HCG URINE QUALITATIVE - POCT (IP) INTERFACED (08/03/2024 10:47 AM MAINTENANCE TECHNICIAN 2ND SHIFT) HCG Qual Urine Negative Negative 08/03/2024 10:53 AM MAINTENANCE TECHNICIAN 2ND SHIFT [facility] Urine URINE / Unknown 08/03/2024 1 0:47 AM MAINTENANCE TECHNICIAN 2ND SHIFT 08/03/2024 10:53 AM MAINTENANCE TECHNICIAN 2ND SHIFT Lamonte David MD LAB - POINT OF CARE ORDERABLES [address] [address], [place] [phone] * HCG URINE QUAL POCT NOTIFICATION (08/03/2024 10:36 AM MAINTENANCE TECHNICIAN 2ND SHIFT) Comment Notification Label Only - See Separate Report 08/03/2024 12:02 PM MAINTENANCE TECHNICIAN 2ND SHIFT [facility] Urine URINE / Unknown 08/03/2024 1 0:36 AM MAINTENANCE TECHNICIAN 2ND SHIFT 08/03/2024 10:36 AM MAINTENANCE TECHNICIAN 2ND SHIFT Lamonte David MD LAB - URINALYSIS ORD ERABLES Performing Organization Address City/[facility]/ZIP Co de Phone Number [address] [address], [place] [phone] * (ABNORMAL) COMPREHENSIVE METABOLIC PANEL (08/15/2019 6:30 AM CDT) Glucose 91 70 - 105 mg/dL 08/15/2019 7:27 AM CDT [facility] Sodium 139 136 - 145 mmol/L 08/15/2019 7:27 AM CDT [facility] Potassium 4.1 3.5 - 5.1 mmol/L 08/15/2019 7:27 AM CDT [facility] Chloride 109(H) 98 - 107 mmol/L 08/15/2019 7:27 AM CDT [facility] CO2 17(L) 23 - 31 mmol/L 08/15/2019 7:27 AM CDT [facility] Calcium 8.4 8.4 - 10.4 mg/dL 08/15/2019 7:27 AM CDT [facility] Anion Gap 13 8 - 16 mmol/L 08/15/2019 7:27 AM CDT [facility] BUN 11 7 - 18.7 mg/dL 08/15/2019 7:27 AM CDT [facility] Creatinine 0.86 0.57 - 1.11 mg/dL 08/15/2019 7:27 AM CDT [facility] Alkaline Phosphatase 58 40 - 150 U/L 08/15/2019 7:27 AM CDT [facility] ALT 9 0 - 61 U/L 08/15/2019 7:27 AM CDT [facility] AST 15 5 - 34 U/L 08/15/2019 7:27 AM CDT [facility] Protein Total 7.4 6.4 - 8.3 gm/dL 08/15/2019 7:27 AM CDT [facility] Albumin 3.8 3.5 - 5.2 gm/dL 08/15/2019 7:27 AM CDT [facility] Bilirubin Total 0.3 0.2 - 1.0 mg/dL 08/15/2019 7:27 AM CDT [facility] eGFR by MDRD >60 >60 mL/min/1.7 3m2 08/15/2019 7:27 AM CDT [facility] eGFR by MDRD >60 >60 mL/min/1.7 3m2 08/15/2019 7:27 AM CDT [facility] Blood BLOOD SPECIMEN / Unknown Venipuncture / Unknown 08/15/2019 6:30 AM CDT 08/15/2019 6:40 AM CDT Juni Cali MD LAB - CHEMISTRY ALESHIA JOHNSON [facility] Organization Address City/State/[facility] Co de Phone Number [facility] [address] [place] [address] from Last 3 Months or Most Recently Relevant to Health Maintenance Advance Directives * Full Code (Latest Code Status on File) Date Activated Date Inactivated Comments 08/15/2019 2:26 PM 08/18/2019 3:37 PM Care Teams Sheet Rocker Relationship Specialty Start Date End Date Rudy Seaman MD PCP - General 05/09/19 Jordi Doan MD [address] [place] [address] Field Geologist 12/30/20
[2024-08-16 19:08] VITALS: BP 148/104; PULSE 87; RESP 16; TEMP 36.8; O2SAT 98
--- OUTSIDE RECORDS SUMMARY | 2024-08-16 19:08 | XMS_ITS | Encounter Summary ---
Author Organization [facility] Address [address] [place] [address] Care Team Providers Care Identification And Records Commander Name Role Phone Rudy Seaman MD Primary Care Provider [phone] Encounter Details Date Type Department Care Team (Late st Contact Info) Description 01/23/2022 MyChart Message Enc [facility] - [facility] [address] [facility], [address] [place] [phone] Elias Fortune MD [address] [place] [address] Symptom inquiry Social History Tobacco Use Types Packs/Day Years Used Date Smoking Tobacco: Never Smokeless Tobacco: Never Alcohol Use Standard Drinks/Week Comments Not Currently [...] on file Sexual Orientation Not on file COVID-19 Exposure Response Date Recorded In the last 10 days, have yo u been in contact with someone who was confirmed or suspected to have Coronavirus/COVID-19? No / Unsure 01/22/2022 8:15 AM CDT documented as of this encounter Plan of Treatment Not on file documented as of this encounter Visit Diagnoses Not on filedocumented in this encounter Care Teams Identification And Records Commander Relationship Specialty Start Date End Date Rudy Seaman MD PCP - General FAMILY PRACTICE 12/18/20 documented as of this encounter
--- OUTSIDE RECORDS SUMMARY | 2024-08-16 19:08 | XMS_ITS | Encounter Summary ---
Author Organization [facility] Address [address] [place] [address] Phone Care Team Providers Care Shotblaster Name Role Phone Rudy Seaman Primary Care Provider [phone] Michael Hutson MD Unavailable Encounter Details Date Type Department Care Team (Late st Contact Info) Description 01/22/2021 Telephone [facility] [address] [address] Michael Hutson MD [address] [facility] [address] [address] Social History Tobacco Use Types [...] Recorded Total Score - Questions 1-9 0 11/29 Education Answer Date Recorded What is the highest level of school you have completed or the highest degree you have received? 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 No / Unsure 12/26/2020 8:40 AM CDT documented as of this encounter Plan of Treatment Upcoming Encounters Date Type Department Care Team (Late st Contact Info) Description 08/18/2024 9:00 AM CDT [facility] [address] [address] Michael Hutson MD [address] [place] [address] [id number] 08/18/2024 9:15 AM CDT Clinical Support [facility] [address] [address] Nurse, [facility] documented as of this encounter Visit Diagnoses Not on filedocumented in this encounter Additional Health Concerns Assessment Noted Time PHQ-9 Depression Total Score: 0 12/27/19 8:45 AM CDT documented as of this encounter Care Teams Shotblaster Relationship Specialty Start Date End Date Rudy Seaman [address] [place] [address] PCP - General Family Medicine 07/21/19 Michael Hutson MD [address] [place] [phone] Consulting Physician Oncology 07/21/19 documented as of this encounter
--- OUTSIDE RECORDS SUMMARY | 2024-08-16 19:08 | XMS_ITS | Encounter Summary ---
Author Organization [facility] Address [address] [place] [address] Phone Care Team Providers Care Plasterer Helper Name Role Phone Rudy Seaman Primary Care Provider [phone] Michael Hutson MD Unavailable Encounter Details Date Type Department Care Team (Late st Contact Info) Description 01/22/2021 Telephone [facility] [place] [address] [place] [address] Keegan Servin, [address] [place] [address] Social History Tobacco Use Types Packs/Day Years [...] Master's degree (e.g., MA, MS, Kayla, MEd, HANDLE ASSEMBLER, RICHAR) 07/21/2019 Sexually Active Control Partners Comments Yes Comments Unknown Sex and Gender Information Value Date Recorded Sex Assigned at Not on file Legal Sex Female 2:45 PM AUTO ELECTRICIAN Gender Identity Not on file Sexual Orientation Not on file 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 Not on file [...] AM CDT [facility] [address] [address] Michael Hutson MD [address] [place] [address] [address] 08/18/2024 9:15 AM CDT Clinical Support [facility] [address] [address] Nurse, [facility] documented as of this encounter Visit Diagnoses Not on filedocumented in this encounter Additional Health Concerns Assessment Noted Time PHQ-9 Depression Total Score: 0 12/27/19 8:45 AM CDT documented as of this encounter Care Teams Plasterer Helper Relationship Specialty Start Date End Date Rudy Seaman [address] [place] [address] PCP - General Family Medicine 07/21/19 Michael Hutson MD [address] [place] [phone] Consulting Physician Oncology 07/21/19 documented as of this encounter
--- NOTE | 2024-08-16 19:21 | ECG_ITS ---
Test Date: 2024-08-16 19:17:18 Measurements Intervals [place] Rate: 69 P: 43 SC: 160 QRS: -1 QRSD: 105 T: 33 QT: 386 QTc: 414 Interpretive Statements SINUS RHYTHM No previous ECG available for comparison Electronically Signed On 08-17-2024 09:18:19 CDT by Ricardo Browne M.D.
[2024-08-16 19:40] LABS: Basophils Percent Auto 0.3 % (0.2-1.2); Eosinophils Absolute Auto 0.1 K/mm3 (0-0.3); Eosinophils Percent Auto 0.8 % (0-4.4); Hematocrit 37.6 % (37.0-47.0); Hemoglobin 12.9 g/dL (12.0-15.0); Immature Granulocyte Absolute 0.06 K/mm3 (0.00-0.031); Immature Granulocyte Percent A 0.5 % (0-0.5); Lymphocytes Absolute Auto 3.97 K/mm3 (0.9-3.2); Lymphocytes Percent Auto 32.6 % (18.3-44.2); Mean Corpuscular HGB Conc 34.3 g/dl (32-36); Mean Corpuscular Hemoglobin 30.1 pg (26-34); Mean Corpuscular Volume 87.9 fl (80-100); Mean Platelet Volume 8.8 fl (7.4-10.4); Monocytes Absolute Auto 0.8 K/mm3 (0.1-0.6); Monocytes Percent Auto 6.4 % (2.6-8.5); Neutrophils Absolute Auto 7.2 K/mm3 (1.3-6.7); Neutrophils Percent Auto 59.4 % (45.5-73.1); Platelet Count Result 292 k/mm3 (150-375); Red Blood Count 4.28 M/mm3 (4.2-5.4); White Blood Count 12.2 K/mm3 (4.5-10.0)
[2024-08-16 19:51] LABS: Alanine Aminotransferase 21 U/L (6-35); Albumin Level 4.1 g/dL (3.5-5.1); Alkaline Phosphatase 69 U/L (38-126); Anion Gap 10 mmol/L (4-12); Aspartate Amino Transferase 17 U/L (14-36); Bilirubin,Total 0.2 mg/dL (0.2-1.3); Blood Urea Nitrogen 18 mg/dL (7-17); Carbon Dioxide 25 mmol/L (22-30); Chloride 102 mmol/L (98-107); Estimated CRCL calculation 74 ml/min; Estimated Glomerular Filt Rate > 60; Glucose 119 mg/dL (65-110); Lipase 79 U/L (23-300); Potassium 3.3 mmol/L (3.4-5.0); Sodium 137 mmol/L (137-145)
[2024-08-16 20:03] LABS: Troponin I < 0.012 ng/mL (0.000-0.034)
--- NOTE | 2024-08-17 00:08 | PC.NURSE ---
pt name was called out twice to be revitalized. Pt did not respond to call out. Pt left without being seen.
--- OUTSIDE RECORDS SUMMARY | 2024-08-17 00:13 | XMS_ITS | Clinical Summary ---
Author Organization [facility] Address [address] [place] [address] Care Team Providers Care Merchandise Processor Name Role Phone Rudy Seaman MD Primary Care Provider [phone] Allergies Active Allergy Reactions Criticality Noted Date Comments Amoxicillin Other (see comment) Low 03/22/2019 Causes yeast infections Causes yeast infections Causes yeast infections Omeprazole Hives 07/11/2021 Medications esomeprazole 20 MG capsule 40 mg. Active amLODIPine 10 MG tablet amlodipine 10 mg tablet TAKE 1 TABLET BY MOUTH EVERY DAY 07/14/19 22 Active cholecalcifero l 1.25 MG (35850 UT) capsule cholecalciferol (vitamin D3) 1,250 mcg [...] Screening wi th HPV 03/13/2024 PHQ-2 (Physician Woodward) 05/31/2024 HPV Vaccines Aged Out No longer [...] patient's age to complete this topic Insurance [facility] Care Teams Merchandise Processor Relationship Specialty Start Date End Date Rudy Seaman MD PCP - General FAMILY PRACTICE 12/18/20
--- OUTSIDE RECORDS SUMMARY | 2024-08-17 00:13 | XMS_ITS ---
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 Past Plans No past plan information found. Radiation Treatments * No radiation treatments are documented for this patient in [facility]. Treatments may have been administered in another system. Lifetime Dose Tracking * Chemical Lifetime Dose Automatic Entry Manual Entr y Dose Length Product 2,383.3 mGy-cm 2,383.3 mGy-cm 0 mG y-cm
--- OUTSIDE RECORDS SUMMARY | 2024-08-17 00:13 | XMS_ITS | Clinical Summary ---
Author Organization [facility] Address [address] [place] [address] Care Team Providers Care Marine Biologist Name Role Phone Rudy Seaman MD Primary Care Provider [phone] Jordi Doan MD Unavailable Source Comments [facility],non-owned Affiliates and Associated Physician Practices is amultiple site organization consisting of ambulatory clinics and hospital sitesin [place], [place], [place] and [place]. This disclosure is being madepursuant to the Care Everywhere program and may not contain all information available regarding this patient. Last updated 18.[facility] Allergies Active Allergy Reactions Criticality Noted Date [...] Malignant carcinoid tumor of the bronchus and daen ng 07/21/2019 Gastroesophageal reflux disease 04/12/2019 Carcinoid tumor of left lung Encounters Date Type Department Care Team Description 08/03/2024 11:30 AM GRAIN MILL WORKER - 08/03/2024 12:00 PM GRAIN MILL WORKER Surgery [facility] [address] [place] [address] Lamonte David MD EGD w/ Manning---off ppi one week 08/03/2024 11:23 AM GRAIN MILL WORKER Anesthesia Event [facility] [address] [place] [address] Petra Sethi MD Wise, William L, REFINERY OPERATOR ASSISTANT-CYBER INCIDENT HANDLER 08/03/2024 10:15 AM GRAIN MILL WORKER - 08/03/2024 12:51 PM GRAIN MILL WORKER Hospital Encounter [facility] [address] [place] [address] Lamonte David MD Surgery General Discharge Disposition: Home or Self Care 08/03/2024 Travel 07/27/2024 Patient Outreach [facility] [address] [place] [address] Valentina Fry, SADIA Pre-op Instructions 06/30/2024 Telephone [facility] [address] [place] [address] Micha Mendoza, SADIA Patient Education (Manning teaching attempt x1) 06/28/2024 10:00 AM GRAIN MILL WORKER Office Visit [facility] [address] [facility] [place] [address] Lamonte David MD Gastroesophageal reflux disease without [...] Comments Blood Pressure 119/84 08/03/2024 12:43 PM GRAIN MILL WORKER Pulse 65 08/03/2024 12:30 PM GRAIN MILL WORKER Temperature 36.1 C (97 F) 08/03/2024 11:46 AM GRAIN MILL WORKER Respiratory Rate 16 08/03/2024 12:3 0 PM GRAIN MILL WORKER Oxygen Saturation 99% 08/03/2024 12: 30 PM GRAIN MILL WORKER Inhaled Oxygen Concentration - - Weight 88.4 kg (194 lb 12.8 oz) 025 10:52 AM GRAIN MILL WORKER Height 162.6 cm (5' 4 ) 08/03/2024 10:5 2 AM GRAIN MILL WORKER Body Mass Index 33.44 08/03/2024 10:52 AM GRAIN MILL WORKER Plan of Treatment Upcoming Encounters Date Type Department Care Team (Late st Contact Info) Description 09/27/2024 10:00 AM CDT Office Visit [facility] - [address] [facility] [place] [address] Lamonte David MD [address] [place] [address] Health Maintenance Due Date Last Done Comments [...] Medication Management General On track( 10:14 AM GRAIN MILL WORKER) No Emily Eller, RN Note: Expected end date: ongoing Interventions: Take all medications as prescribed Let your doctor know right away about any changes in your medications Make sure to request a refill of your medication at least one week prior to your last dose Medication Management General On track( 025 10:14 AM GRAIN MILL WORKER) No Susan Raya, SADIA Note: Expected end date: ongoing Interventions: Take all medications as prescribed Let your doctor know right away about any changes in your medications Make sure to request a refill of your medication at least one week prior to your last dose Procedures Procedure Name Priority Date/Time Associated Diagnosis Comments DE ESOPH LESLY TEST; W/NASAL CATH PH ELEC [facility] REC 08/03/2024 11:18 AM GRAIN MILL WORKER Gastroesophageal reflux disease without esophagitis Special Needs Message Received: 2 days ago Yaima Colindres, Alia Headley, RN Please schedule for EGD with Manning placement. Plan to be off PPI for 1 week prior to EGD & 96 hours following placement. Thank you DE ED EGD FLEX TRANSORAL DX 08/03/2024 11:18 AM GRAIN MILL WORKER Gastroesophageal reflux disease without esophagitis Special Needs Message Received: 2 days ago Yaima Colindres, CLEMENTINA Faye, Alia Rocha, RN Please schedule for EGD with Manning placement. Plan to be off PPI for 1 week prior to EGD & 96 hours following placement. Thank you EGD Routine 08/03/2024 11:05 AM GRAIN MILL WORKER HCG URINE QUALITATIVE - POCT (IP) INTERFACED Routine 08/03/2024 10:47 AM GRAIN MILL WORKER HCG URINE QUAL POCT NOTIFICATION STAT 08/03/2024 10:36 AM GRAIN MILL WORKER Pre-op evaluation COMPREHENSIVE METABOLIC PANEL LAILA 08/15/2019 6:30 AM CDT Carcinoid tumor of left lung from Last 3 Months or Most Recently Relevant to Health Maintenance Results * EGD (08/03/2024 11:05 AM GRAIN MILL WORKER) Report Endoscopy POC Endoscopy Department Report _ [...] as tolerated. Procedure Code(s): --- Professional --- 42263, Esophagogastrodu odenoscopy, flexible, transoral; diagnostic, including collection of specimen(s) by brushing or washing, when performed (separate procedure) Diagnosis Code(s): --- Professional --- K31.7, Polyp of stomach and duodenum R12, Heartburn R93.3, Abnormal findings on diagnostic imaging of other parts of digestive tract CPT copyright 2021 [employer]. All rights reserved. The codes documented in this report are preliminary and upon supervisor inspection room review may be revised to meet current compliance requirements. Lamonte David MD 08/03/2024 11:43:17 AM Note Initiated On: 08/03/2024 11:05 AM Number of Addenda: [id number] [place] [address] [place] 08/03/2024 11:0 5 AM GRAIN MILL WORKER Lamonte David MD GI PROCEDURE ORDERAB LES [facility] * HCG URINE QUALITATIVE - POCT (IP) INTERFACED (08/03/2024 10:47 AM GRAIN MILL WORKER) HCG Qual Urine Negative Negative 08/03/2024 10:53 AM GRAIN MILL WORKER [facility] Urine URINE / Unknown 08/03/2024 1 0:47 AM GRAIN MILL WORKER 08/03/2024 10:53 AM GRAIN MILL WORKER Lamonte David MD LAB - POINT OF CARE ORDERABLES [address] [address], [place] [phone] * HCG URINE QUAL POCT NOTIFICATION (08/03/2024 10:36 AM GRAIN MILL WORKER) Comment Notification Label Only - See Separate Report 08/03/2024 12:02 PM GRAIN MILL WORKER [facility] Urine URINE / Unknown 08/03/2024 1 0:36 AM GRAIN MILL WORKER 08/03/2024 10:36 AM GRAIN MILL WORKER Lamonte David MD LAB - URINALYSIS ORD ERABLES Performing Organization Address City/[facility]/ZIP Co de Phone Number [address] [address], [place] [phone] * (ABNORMAL) COMPREHENSIVE METABOLIC PANEL (08/15/2019 6:30 AM CDT) Glucose 91 70 - 105 mg/dL 08/15/2019 7:27 AM CDT [facility] Sodium 139 136 - 145 mmol/L 08/15/2019 7:27 AM CDT [facility] Potassium 4.1 3.5 - 5.1 mmol/L 08/15/2019 7:27 AM CDT [facility] Chloride 109(H) 98 - 107 mmol/L 08/15/2019 7:27 AM CDT [facility] CO2 17(L) 23 - 31 mmol/L 08/15/2019 7:27 AM CDT [facility] Calcium 8.4 8.4 - 10.4 mg/dL 08/15/2019 7:27 AM CDT [facility] Anion Gap 13 8 [...] >60 mL/min/1.7 3m2 08/15/2019 7:27 AM CDT [facility] Blood BLOOD SPECIMEN / Unknown Venipuncture / Unknown 08/15/2019 6:30 AM CDT 08/15/2019 6:40 AM CDT Juni Cali MD LAB - CHEMISTRY ALESHIA JOHNSON [facility] Organization Address City/State/[facility] Co de Phone Number [facility] [address] [place] [address] from Last 3 Months or Most Recently Relevant to Health Maintenance Advance Directives * Full Code (Latest Code Status on File) Date Activated Date Inactivated Comments 08/15/2019 2:26 PM 08/18/2019 3:37 PM Care Teams Marine Biologist Relationship Specialty Start Date End Date Rudy Seaman MD PCP - General 05/09/19 Jordi Doan MD [address] [place] [address] Shoelace Tipping Machine Operator 12/30/20
--- OUTSIDE RECORDS SUMMARY | 2024-08-17 00:14 | XMS_ITS | Referral Summary ---
Author Organization [facility] Address [address] [place] [address] Care Team Providers Care Senior Applications Analyst Name Role Phone Rudy Seaman MD Primary Care Provider [phone] Allergies Active Allergy Reactions Criticality Noted Date [...] Overview (06/03/2023): Urinary frequency;Recorded Elsewhere: No Location: [facility] Source: EHR Chronic: N Practice ID: [id number] Billable Time: 03:00:00 PM Obesity with body mass index 30 or greater 11/05 Overview (06/03/2023): Body mass index (BMI) 31.0-31.9, adult;Recorded Elsewhere: No Location: [facility] Source: EHR Chronic: N Practice ID: [id number] Billable Time: 03:00:00 PM Overweight with body mass index (BMI) 25.0-29.9 11/03/2016 Overview (06/03/2023): Body mass index (BMI) 29.0-29.9, adult;Recorded Elsewhere: No Location: [facility] Source: EHR Chronic: N Practice ID: [id number] Billable Time: 01:00:00 PM Overweight 10/12/2014 Overview (06/03/2023): Overweight;Recorded Elsewhere: No Location: [facility] Source: EHR Chronic: N Practice ID: [id number] [...] on file Legal Sex Female 9:23 PM PARAMEDICAL AIDE Gender Identity Not on file Sexual Orientation [...] strategies and compensatory methods as needed Insurance [facility] [employer] [place] C[employer] IN WORKERS COMPENSATION GENERIC Care Teams Senior Applications Analyst Relationship Specialty Start Date End Date Rudy Seaman MD [address] [place] [address] PCP - General Family Medicine 04/02/20
--- OUTSIDE RECORDS SUMMARY | 2024-08-17 00:14 | XMS_ITS ---
Author Organization [facility] Address [address], [facility] [address] [place] [address] Phone Care Team Providers Care Hazardous Waste Technician Name Role Phone Rudy Seaman Primary Care Provider [phone] Michael Hutson MD Unavailable [phone] Active Problems Problem Noted Date Diagnosed Date [...]
--- OUTSIDE RECORDS SUMMARY | 2024-08-17 00:14 | XMS_ITS | Encounter Summary ---
Author Organization [facility] Address [address] [place] [address] Phone Care Team Providers Care Ged Tutor Name Role Phone Rudy Seaman Primary Care Provider [phone] Michael Hutson MD Unavailable [phone] Encounter Details Date Type Department Care Team (Late st Contact Info) Description 01/22/2021 Telephone [facility] [address] [address] Michael Hutson MD [address] [facility] [address] [address] Social History Tobacco Use Types [...] Master's degree (e.g., MA, MS, Kayla, MEd, [employer]', RICHAR) 07/21/2019 Sexually Active Control Partners Comments Yes Comments Unknown Sex and Gender Information Value Date Recorded Sex Assigned at Not on file Legal Sex Female 2:45 PM VAMP SEAMER Gender Identity Not on file Sexual Orientation Not on file 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 [...] AM CDT Office Visit [facility] [address] [address] Michael Hutson MD [address] [place] [address] [address] 08/18/2024 9:15 AM CDT Clinical Support [facility] [address] [address] Nurse, Cc [facility] documented as of this encounter Visit Diagnoses Not on filedocumented in this encounter Additional Health Concerns Assessment Noted Time PHQ-9 Depression Total Score: 0 12/27/19 8:45 AM CDT documented as of this encounter Care Teams Ged Tutor Relationship Specialty Start Date End Date Rudy Seaman [address] [place] [address] PCP - General Family Medicine 07/21/19 Michael Hutson MD [address] [place] [phone] Consulting Physician Oncology 07/21/19 documented as of this encounter
--- OUTSIDE RECORDS SUMMARY | 2024-08-17 00:14 | XMS_ITS | Encounter Summary ---
Author Organization [facility] Address [address] [place] [address] Phone Care Team Providers Care Director Hematology Name Role Phone Rudy Seaman Primary Care Provider Michael Hutson MD Unavailable Encounter Details Date Type Department Care Team (Late st Contact Info) Description 01/22/2021 Telephone [facility] [place] [address] [place] [address] Keegan Servin, [address] [place] [address] Social History Tobacco Use Types [...] Master's degree (e.g., MA, MS, Kayla, MEd, SOFTWARE SUPPORT ENGINEER, RICHAR) 07/21/2019 Sexually Active Control Partners Comments Yes Comments Unknown Sex and Gender Information Value Date Recorded Sex Assigned at Not on file Legal Sex Female 2:45 PM FINANCIAL REPORTING ADVISOR Gender Identity Not on file Sexual Orientation Not on file 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 [...] AM CDT Office Visit [facility] [address] [address] Michael Hutson MD [address] [place] [address] [address] 08/18/2024 9:15 AM CDT Clinical Support [facility] [address] [address] Nurse, Cc [facility] documented as of this encounter Visit Diagnoses Not on filedocumented in this encounter Additional Health Concerns Assessment Noted Time PHQ-9 Depression Total Score: 0 12/27/19 8:45 AM CDT documented as of this encounter Care Teams Director Hematology Relationship Specialty Start Date End Date Rudy Seaman [address] [place] [address] PCP - General Family Medicine 07/21/19 Michael Hutson MD [address] [place] [phone] Consulting Physician Oncology 07/21/19 documented as of this encounter
--- OUTSIDE RECORDS SUMMARY | 2024-08-17 00:14 | XMS_ITS | Encounter Summary ---
Author Organization [facility] Address [address] [place] [address] Care Team Providers Care Assistant Engineer Name Role Phone Rudy Seaman MD Primary Care Provider Encounter Details Date Type Department Care Team (Late st Contact Info) Description 01/23/2022 MyChart Message Enc [facility] [address] [facility], [address] [place] [id number] Elias Fortune MD [address] [place] [address] Symptom inquiry Social History Tobacco Use Types [...] on filedocumented in this encounter Care Teams Assistant Engineer Relationship Specialty Start Date End Date Rudy Seaman MD PCP - General FAMILY PRACTICE 12/18/20 documented as of this encounter
--- OUTSIDE RECORDS SUMMARY | 2024-08-17 00:14 | XMS_ITS | Clinical Summary ---
Author Organization [facility] Address [address] [place] [address] [place] [address] Phone Care Team Providers Care Rehabilitation Coordinator Name Role Phone Rudy Seaman Primary Care Provider [phone] Michael Hutson MD Unavailable [phone] Allergies Active Allergy Reactions Criticality Noted Date [...] Department Care Team Description 07/17/2024 10:00 AM ASSISTANT MERCHANDISER Clinical Support [facility] [address] [phone] Nurse, Hilary Ceballos Vitamin D deficiency (Primary Dx); Iron deficiency 07/17/2024 Travel 05/22/2024 3:30 PM ASSISTANT MERCHANDISER Clinical Support [facility] [address] [phone] Nurse, Cc [facility] Vitamin D deficiency (Primary [...] Master's degree (e.g., MA, MS, Kayla, MEd, ASSOCIATE CREATIVE DIRECTOR, RICHAR) 07/21/2019 Sexually Active Control Partners Comments Yes Comments Unknown Sex and Gender Information Value Date Recorded Sex Assigned at Not on file Legal Sex Female 2:45 PM ASSISTANT MERCHANDISER Gender Identity Not on file Sexual Orientation Not on file 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 Not on file Not on file Last Filed Vital Signs Vital Sign Reading Time Taken Comments Blood Pressure 142/84 04/04/2024 9:10 AM ASSISTANT MERCHANDISER Pulse 71 02/18/2024 9:07 AM CDT Temperature [...] CDT Office Visit [facility] [address] [address] Michael Hutson MD [address] [place] [address] [place] [address] 08/18/2024 9:15 AM CDT Clinical Support [facility] [address] [address] Nurse, Cc [facility] Health Maintenance Due Date Last Done Comments [...] patient's age to complete this topic Insurance [facility] Care Teams Rehabilitation Coordinator Relationship Specialty Start Date End Date Rudy Seaman [address] [place] [address] PCP - General Family Medicine 07/21/19 Michael Hutson MD [address] [place] [phone] Consulting Physician Oncology 07/21/19
--- OUTSIDE RECORDS SUMMARY | 2024-08-17 00:14 | XMS_ITS | Clinical Summary ---
Author Organization [facility] Address [address] [place] [address] Care Team Providers Care Licensed Insurance Agent Name Role Phone Rudy Seaman MD Primary Care Provider [phone] Allergies Active Allergy Reactions Criticality Noted Date [...] Overview (06/03/2023): Urinary frequency;Recorded Elsewhere: No Location: [facility] Source: EHR Chronic: N Practice ID: [id number] Billable Time: 03:00:00 PM Obesity with body mass index 30 or greater 11/05 Overview (06/03/2023): Body mass index (BMI) 31.0-31.9, adult;Recorded Elsewhere: No Location: [facility] Source: EHR Chronic: N Practice ID: [id number] Billable Time: 03:00:00 PM Overweight with body mass index (BMI) 25.0-29.9 11/03/2016 Overview (06/03/2023): Body mass index (BMI) 29.0-29.9, adult;Recorded Elsewhere: No Location: [facility] Source: EHR Chronic: N Practice ID: [id number] Billable Time: 01:00:00 PM Overweight 10/12/2014 Overview (06/03/2023): Overweight;Recorded Elsewhere: No Location: [facility] Source: EHR Chronic: N Practice ID: [id number] [...] on file Legal Sex Female 9:23 PM GROUNDS KEEPER Gender Identity Not on file Sexual Orientation [...] strategies and compensatory methods as needed Insurance [employer] WORKERS COMPENSATION GENERIC Member Subscriber Plan / Payer (Ef fective 2020-Present) Name:Lisa Quiles Member ID:[id number] Relation to Subscriber:Self Name:Lisa Quiles Subscriber ID:[id number] Payer ID:[id number] Group ID:Not on file Type:WORKERS COMPENSATION Address: [facility] C/O [facility] Claims Management Services [address] [place] [address] Care Teams Licensed Insurance Agent Relationship Specialty Start Date End Date Rudy Seaman MD [address] [place] [address] PCP - General Family Medicine 04/02/20
--- OUTSIDE RECORDS SUMMARY | 2024-08-17 00:14 | XMS_ITS | Encounter Summary ---
Author Organization [facility] Address [address] [place] [address] Phone Care Team Providers Care Safety Pin Assembling Machine Operator Name Role Phone Rudy Seaman Primary Care Provider [phone] Michael Hutson MD Unavailable Encounter Details Date Type Department Care Team (Late st Contact Info) Description 09/25/2021 Telephone [facility] [address] [address] Michael Hutson MD [address] [facility] [address] [address] Social History Tobacco Use Types [...] Master's degree (e.g., MA, MS, Kayla, MEd, DESK REPORTER, RICHAR) 07/21/2019 Sexually Active Control Partners Comments Yes Comments Unknown Sex and Gender Information Value Date Recorded Sex Assigned at Not on file Legal Sex Female 2:45 PM SPECIAL EDUCATION AIDE Gender Identity Not on file Sexual Orientation Not on file 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 Patient aware of new appointment. * Telephone [...] AM CDT Office Visit [facility] [address] [phone] Michael Hutson MD [address] [facility] [place] [address] [address] 08/18/2024 9:15 AM CDT Clinical Support [facility] [address] [address] Nurse, Cc [facility] documented as of this encounter Visit Diagnoses Not on filedocumented in this encounter Additional Health Concerns Assessment Noted Time PHQ-9 Depression Total Score: 0 02/28/20 8:32 AM CDT documented as of this encounter Care Teams Safety Pin Assembling Machine Operator Relationship Specialty Start Date End Date Rudy Seaman [address] [place] [address] PCP - General Family Medicine 07/21/19 Michael Hutson MD [address] [place] [phone] Consulting Physician Oncology 07/21/19 documented as of this encounter
== END 2024-08-16 23:59 | disposition left against medical advice (07) ==
PROVIDERS: Emergency Provider Student in an Organized Health Care Education/Training Program; PCP Emergency Medicine
DX: R07.9 Chest pain, unspecified (principal)
CPT/HCPCS: 36415; 71046; 80053; 83690; 84484; 85025; 93005; 99199

== ENCOUNTER 2025-03-14 14:18 | Outpatient (CLI) | payer BC, SELFPAY ==
--- NOTE | ~2025-03-14 | XR_ITS ---
EXAMINATION: XR shoulder LT min 2V, 03/14/2025 14:40 CDT HISTORY: PAIN IN LEFT SHOULDER X 4 MONTHS COMPARISON: No comparisons available. Findings: No acute fracture or malalignment. No significant degenerative changes. Soft tissues unremarkable. Impression: No acute fracture or malalignment. Reviewed, dictated and finalized at location P. Impression: No acute fracture or malalignment.
--- OUTSIDE RECORDS SUMMARY | 2025-03-14 16:40 | XMS_ITS | Clinical Summary ---
Author Organization [facility] Address [address] [place] [address] Care Team Providers Care It Service Manager Name Role Phone Rudy Seaman MD Primary Care Provider [phone] Jordi Doan MD Unavailable [phone] Source Comments [facility],non-owned Affiliates and Associated Physician Practices is amultiple site organization consisting of ambulatory clinics and hospital sitesin [place], [place], [place] and [place]. This disclosure is being madepursuant to the Care Everywhere program and may not contain all information available regarding this patient. Last updated 18.[facility] Allergies Active Allergy Reactions Criticality Noted Date Comments Amoxicillin Other Low 03/22/2019 Causes yeast infections Omeprazole Urticaria Medium 12/24/2021 Medications * Be aware that medications may not be up to date on this document. Alwaysverify current medications with the patient. ISIBLOOM 0.15-30 MG-MCG tablet TK UTD PER PRESCRIBER OR PACKAGE INSTRUCTIONS 9 Active irbesartan (Avapro) 150 MG tablet Take 1 (one) tablet by mouth every 24 hours 2 Active famotidine (Pepcid) 20 MG tablet Take 1 (one) tablet by mouth 2 times daily as needed 60 tablet 3 4 Active polyethylene glycol 3350 (Miralax) 17 GM/SCOOP powder DISSOLVE 17 GRAMS IN LIQUID AND DRINK BY MOUTH ONCE DAILY 4 Active esomeprazole (NexIUM) 40 MG capsuleIndicati ons:Gastroesoph ageal reflux disease without esophagitis Take 1 (one) capsule by mouth 2 times daily, before breakfast and supper 60 capsule 5 4 Active calcium carbonate (Tums) 500 MG chew tablet Take 1 (one) tablet by mouth daily with food 1-2 times daily Active Active Problems Problem Noted Date Diagnosed Date Hiatal hernia 12/27/2020 Liver lesion 11/28/2020 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 Gender Identity Not on file Sexual Orientation Not on file Last Filed Vital Signs Vital Sign Reading Time Taken Comments Blood Pressure 125/87 10/11/2024 9:13 AM CDT Pulse 66 10/11/2024 9:13 AM CDT Temperature 36.7 C (98 F) 10/11/2024 9:13 AM CDT Respiratory Rate 16 08/03/2024 12:30 PM SALES REVIEW CLERK Oxygen Saturation 98% 10/11/2024 9:13 AM CDT Inhaled Oxygen Concentration - - Weight 88 kg (194 lb) 10/11/2024 9:13 AM CDT Height 162.6 cm (5' 4) 10/11/2024 9:13 AM CDT Body Mass Index 33.3 10/11/2024 9:13 AM CDT Plan of Treatment Upcoming Encounters Date Type Department Care Team (Late st Contact Info) Description 04/04/2025 9:30 AM SALES REVIEW CLERK Office Visit [facility] [address], [facility] [place] [address] Lamonte David MD [address] [place] [phone] Health Maintenance Due Date Last Done Comments LIPID TESTING 1981 MAMMOGRAM 1981 HIV SCREENING 1996 HEPATITIS C SCREENING 06/11/1999 DTAP/TDAP/TD VACCINES (1 - Tdap) 2000 HEPATITIS B VACCINE (1 of 3 - 19+ 3-dose series) 2000 HPV VACCINE (1 - 3-dose SCDM series) 2008 SCREENING FOR DIABETES 02/09/2024 , 08/15/2019, 06/01/2019 DEPRESSION SCREENING 05/31/2024 COVID-19 VACCINE (2 - season) 2025 07/11/2020 INFLUENZA VACCINE (#1) 2025 08/16/2019 PAP SMEAR 2026 2023, 05/31, 03/31/2022, Additional history exists ZOSTER VACCINE (1 of 2) 2031 HIB VACCINE Aged Out No longer eligi ble based on patient's age to complete this topic MENINGOCOCCAL (Group B) VACCINE SHARED DECISION-MAKING Aged Out No longer eligible based on patient's age to complete this topic MENINGOCOCCAL GROUPS A/C/Y/W VACCINE Aged Out No longer eligible based on patient's age to complete this topic PNEUMOCOCCAL VACCINE Aged Out No long er eligible based on patient's age to complete this topic Goals Goal Patient Goal Type Associated Problems Recent Progress Patient-Stated? Author Medication Management General On track( 025 10:20 AM CDT) Emily Sanchez, RN Note: Expected end date: ongoing Interventions: Take all medications as prescribed Let your doctor know right away about any changes in your medications Make sure to request a refill of your medication at least one week prior to your last dose Procedures Procedure Name Priority Date/Time Associated Diagnosis Comments COMPREHENSIVE METABOLIC PANEL LAILA 08/15/2019 6:30 AM CDT Carcinoid tumor of left lung from Last 3 Months or Most Recently Relevant to Health Maintenance Results * (ABNORMAL) COMPREHENSIVE METABOLIC PANEL (08/15/2019 6:30 AM CDT) Glucose 91 70 - 105 mg/dL 08/15/2019 7:27 AM CDT [facility] Sodium 139 136 - 145 mmol/L 08/15/2019 7:27 AM CDT [facility] Potassium 4.1 3.5 - 5.1 mmol/L 08/15/2019 7:27 AM CDT [facility] Chloride 109(H) 98 - 107 mmol/L 08/15/2019 7:27 AM CDT [facility] CO2 17(L) 23 - 31 mmol/L 08/15/2019 7:27 AM CDT [facility] Calcium 8.4 8.4 - 10.4 mg/dL 08/15/2019 7:27 AM CDT [facility] Anion Gap 13 8 - 16 mmol/L 08/15/2019 7:27 AM CDT [facility] BUN 11 7 - 18.7 mg/dL 08/15/2019 7:27 AM CDT [facility] Creatinine 0.86 0.57 - 1.11 mg/dL 08/15/2019 7:27 AM CDT [facility] Alkaline Phosphatase 58 40 - 150 U/L 08/15/2019 7:27 AM CDT [facility] ALT 9 0 - 61 U/L 08/15/2019 7:27 AM CDT [facility] AST 15 5 - 34 U/L 08/15/2019 7:27 AM CDT [facility] Protein Total 7.4 6.4 - 8.3 gm/dL 08/15/2019 7:27 AM CDT [facility] Albumin 3.8 3.5 - 5.2 gm/dL 08/15/2019 7:27 AM CDT [facility] Bilirubin Total 0.3 0.2 - 1.0 mg/dL 08/15/2019 7:27 AM CDT [facility] eGFR by MDRD >60 >60 mL/min/1.7 3m2 08/15/2019 7:27 AM CDT [facility] eGFR by MDRD >60 >60 mL/min/1.7 3m2 08/15/2019 7:27 AM CDT [facility] Blood BLOOD SPECIMEN / Unknown Venipuncture / Unknown 08/15/2019 6:30 AM CDT 08/15/2019 6:40 AM CDT us Juni Cali MD LAB - CHEMISTRY ORDERABLES Fin al Result [facility] [address] [place] [address] from Last 3 Months or Most Recently Relevant to Health Maintenance Insurance [employer] Advance Directives * Full Code (Latest Code Status on File) Date Activated Date Inactivated Comments 08/15/2019 2:26 PM 08/18/2019 3:37 PM Care Teams It Service Manager Relationship Specialty Start Date End Date Rudy Seaman MD PCP - General 05/09/19 Jordi Doan MD [address] [place] [address] Artillery Maintenance Supervisor 12/30/20
--- OUTSIDE RECORDS SUMMARY | 2025-03-14 16:40 | XMS_ITS ---
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 Past Treatment and Therapy Plans No past plan information found. Lifetime Dose Tracking * Chemical Lifetime Dose Automatic Entry Manual Entr y Dose Length Product 2,383.3 mGy-cm 2,383.3 mGy-cm 0 mG y-cm
--- OUTSIDE RECORDS SUMMARY | 2025-03-14 16:40 | XMS_ITS | Clinical Summary ---
Author Organization [facility] Address [address] [place] [id number] Care Team Providers Care Business Account Manager Name Role Phone Rudy Seaman MD Primary Care Provider [phone] Allergies Active Allergy Reactions Criticality Noted Date Comments Amoxicillin Other (see comment) Low 03/22/2019 Causes yeast infections Causes yeast infections Causes yeast infections Omeprazole Hives 07/11/2021 Medications esomeprazole 20 MG capsule 40 mg. Active amLODIPine 10 MG tablet amlodipine 10 mg tablet TAKE 1 TABLET BY MOUTH EVERY DAY 07/14/19 22 Active cholecalcifero l 1.25 MG (69608 UT) capsule cholecalciferol (vitamin D3) 1,250 mcg [...] tumor of the bronchus and dean ng 12/10/2021 Chronic midline low back pain with [...] P M CDT Height 162.6 cm (5' 4) 02/26/2022 1:59 PM CDT Body Mass Index 32.2 02/26/2022 1:59 PM CDT Plan of Treatment Health Maintenance Due Date Last Done Comments Annual Physical 1984 Hepatitis C 1999 DTaP, Tdap and Td Vaccines ( 1 - Tdap) 2000 Hepatitis B Vaccines (1 of 3 - 19+ 3-dose series) 2000 HPV Vaccines (1 - 3-dose SCD M series) 2008 Cervical Cancer Screening Pa p with HPV Testing (Age 30 to 64) Every 5 Years 2011 Mammogram Screening 2021 Cervical Cancer Screening Pa p Smear (Age 30 to 64) Every 3 Years 03/13/2024 03/13/2021 Cervical Cancer Screening wi th HPV 03/13/2024 COVID-19 Vaccine (3 - 2024-2 6 season) 2025 08/01/2020, 07/11/2020 Influenza Adult (#1) 2025 08/16/2019 Hepatitis A Vaccines Aged Out No long er eligible based on patient's age to complete this topic Meningococcal B Vaccine Aged Out No l onger eligible based on patient's age to complete this topic Meningococcal Vaccine Aged Out No sasha diego eligible based on patient's age to complete this topic Pneumococcal Vaccine: Pediatrics (0 to 5 Years) and At-Risk Patients (6 to 49 Years) Aged Out No longer eligible b ased on patient's age to complete this topic RSV Immunizations Under 20 Months Aged Out No longer eligible b ased on patient's age to complete this topic Insurance [facility] Care Teams Business Account Manager Relationship Specialty Start Date End Date Rudy Seaman MD PCP - General FAMILY PRACTICE 12/18/20
--- OUTSIDE RECORDS SUMMARY | 2025-03-14 16:41 | XMS_ITS | Clinical Summary ---
Author Organization [facility] Address [address] [place] [address] Care Team Providers Care Hat Forming Machine Operator Name Role Phone Rudy Seaman MD Primary Care Provider [phone] Allergies Active Allergy Reactions Criticality Noted Date [...] Overview (06/03/2023): Urinary frequency;Recorded Elsewhere: No Location: [facility] Source: EHR Chronic: N Practice ID: [id number] Billable Time: 03:00:00 PM Obesity with body mass index 30 or greater 11/05 Overview (06/03/2023): Body mass index (BMI) 31.0-31.9, adult;Recorded Elsewhere: No Location: [facility] Source: EHR Chronic: N Practice ID: [id number] Billable Time: 03:00:00 PM Overweight with body mass index (BMI) 25.0-29.9 11/03/2016 Overview (06/03/2023): Body mass index (BMI) 29.0-29.9, adult;Recorded Elsewhere: No Location: [facility] Source: EHR Chronic: N Practice ID: [id number] Billable Time: 01:00:00 PM Overweight 10/12/2014 Overview (06/03/2023): Overweight;Recorded Elsewhere: No Location: [facility] Source: EHR Chronic: N Practice ID: [...] on file 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 Author CCM Chronic Pain Care Plan Chronic Care Management Improving( 10:22 AM CDT) Isaiah Matias, RN Note: Problem: Chronic Pain Goals: 1. Minimize further functional decline 2. Maximize quality of life 3. Control pain Strategies: - Activity/exercise program recommendation - Conservative stepwise pain medicine strategy with multi-disciplinary approach - Recommend healthy lifestyle strategies and compensatory methods as needed Insurance [employer] [facility] [employer] [facility] [employer] [place] [facility] [employer] [place] [facility] [employer] [facility] [employer] [facility] [employer] Care Teams Hat Forming Machine Operator Relationship Specialty Start Date End Date Rudy Seaman MD [address] [place] [address] PCP - General Family Medicine 04/02/20
--- OUTSIDE RECORDS SUMMARY | 2025-03-14 16:41 | XMS_ITS | Data Portability ---
Author Organization [facility] Address [address] [place] [address] Care Team Providers Care Copy Coordinator Name Role Phone ARACELI QURESHI Primary Care [...] new symptoms. [email or web address] Not available 2023 12:22:40 01/15/2025 01/15/2025 Annual gynecological exam performed. Patient will come back in a year unless there are new symptoms. [email or web address] Not available 01/04/2025 08:48:16 Plan of Treatment Reminders Order Date Submit Date Provider Last Modified By Organization Details Last Modified Time Details Appointments None recorded. Lab None recorded. Referral None recorded. Procedures None recorded. Surgeries None recorded. Imaging MAMMO, screening, bilateral [address] [facility], [address], [place], [address], 4 10:25:50 Medication Orders valacyclovi r 500 mg tablet 2024 025 [facility] #87355, [address] [facility], [place], [place], [id number], 5 09:45:33 Isibloom 0.15 mg-0.03 mg tablet 2024 025 [facility] #95977, [address] [facility], [place], [place], [id number], 5 09:45:29 estradiol 0.01% (0.1 mg/gram) vaginal cream 2024 025 [facility] #64730, [address] [facility], [place], [place], [id number], 5 09:46:27 Isibloom 0.15 mg-0.03 mg tablet [address] [facility] #53764, [address] [facility], [place], [place], [id number], 5 09:18:42 Apri 0.15 mg-0.03 mg tablet [address] [facility] #68357, [address], [place], [place], [id number], 5 09:18:42 Diflucan 200 mg tablet [address] [facility] #87958, [address] [facility], [place], [place], [id number], 2 16:08:00 nystatin-tr iamcinolone 100,000 unit/gram-0 .1 % topical ointment 2020 021 [facility], [address] , [place], [place], [id number], 2 16:08:23 Apri 0.15 mg-0.03 mg tablet 2020 021 [email or web address] [facility] #13788, [address] , [place], [place], [id number], 5 09:19:37 Apri 0.15 mg-0.03 mg tablet 2019 020 [email or web address]12173, [address] [facility], [place], [place], [id number], 5 09:18:42 Patient TargetsNo targets recorded. Patient Instructions Encounter [...] normal ACCES JUDIT #: [id number] Sourc e: Cervi xander/E ndoce rvica l LMP: 10/17 Date Taken : 02/25 Speci men Type: ThinP rep Vial Date Repor elton: 2019 Clini xander Data: Cytot ech: ROCKY Clemons( CP) Date Repor elton: 2019 Speci men Adequ acy: Satis facto ry for evalu ation Endoc ervic al/tr ansfo rmati on zone compo nent prese nt Gener al Categ oriza tion: NEGAT DIANN FOR INTRA EPITH ELIAL LESIO N OR MALIG NELIDA This speci men has been maciel zed by the ThinP rep Imagi ng Syste m, an inter activ e compu ter syste m which narciso ts the lab in the scree ambrocio of ThinP rep Pap Test slide kathie rojas ng, the slide was revie wed by a Cytot echno logis t and/o r Patho logis tKatherine Herman A A S S A Y S R E P O R T TEST NAME ADAM SENA ----- ---- ----- -- HPV High Risk Irineo herman (TMA) ThinP rep Vial The human papil [...] and labor atory findi ngs. See https ://[employer]/s ites/ defau lt/fi les/2 018-0 3AW- 61153 _002_ 01.pd f for furbladimir er infor matio n. Test perfo rmed by [facility] d/b/a Path [facility], [address], [place] [address] , Kim Degroot ra, DO, Labor atory [facility]. HPV High Risk *HPV NOT DETEC ELTON [...] and labor atory findi ngs. See https ://[employer]/s ites/ defau lt/fi les/2 018-0 3AW- 22830 _002_ 01.pd f for furth er infor matio n. Test perfo rmed by [facility] [employer], d/b/a [facility], [address], [place] [address] , Kim Degroot ra, DO, [facility]. End of Repor t Techn ical servi raza provi ded by [facility] [employer] [facility] [employer], d/b/a [facility], [address] [place] [address] Ridge Kirkpatrick MD, [facility]. Case revie wed and diagn osis rende red at [facility] [employer] [facility] [employer], d/b/a [employer] roup, [address] [place] [address] Ridge Kirkpatrick MD, [facility]. CONFI DENTI AL Not Available [facility] ([facility]) [address] [place] [address], [place], [address], 02/27/2020 19:29:00 02/26/20 20 02/27/2020 HPV DNA, high- risk HPV high risk NOT DETECT ED normal Not Available [facility] ([facility]) [address] [place] [address], [place], [address], 02/27/2020 19:29:00 03/13/20 21 03/13/2021 IMAGE GUIDE D PAP AND HPV REGAR DLESS image guided Pap, HPV regardless of Pap result SEE RESULT S BELOW CASE REPOR T: Cytol ogy Gynec ologi xander Repor t Case: [id number] Autho tommie g Provi reese: Won Coy Colle cted: 03/13 1402 CARDIOLOGY NURSE Order ing Locat ion: [place] Patho log[facility] Recei natalia: 03/14 0025 First Scree n: Nacha mpass ak, Sivil ay, CT Speci men: Scree ambrocio Pap - Image d, Cervi x STATE MENT OF ADEQU ACY: Satis facto ry for evalu ation Trans forma tion zone compo nent prese nt FINAL DIAGN OSIS: Negat diann for Intra epith elial Lesio n or Blaynejustin merrill (NIL) . 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 Elect srinath noland pat d by Griselda gutierrez, Katalina bell, CT on 03/19 at 6:42 PM ----- [...] as clini hilaria nolan nted. Not Available [facility] ([facility]) [address] [facility], [place], [address], 03/19/2021 19:44:39 03/31/20 22 03/31/2022 IMAGE GUIDE D PAP AND HPV REGAR DLESS image guided Pap, HPV regardless of Pap result SEE RESULT S BELOW CASE REPOR T: Cytol ogy Gynec ologi xander Repor t Case: [id number] Autho tommie green Provi reese: Won Coy Colle cted: 03/31 1709 CARDIOLOGY NURSE Order ing Locat ion: [place] Path[facility] log[facility] Recei natalia: 04/01 0333 First Scree n: Eva Richmond , CT Rescr een: Dorian Suarez ed, CT Speci men: Screanrde albrecht Pap - Image d, Cervi x STATE MENT OF ADEQU ACY: Satis facto ry for evalu ation Trans forma tion zone compo nent absen t The absen ce of an endoc ervic al compo nent was confi rmed by an addit ional scree ner. FINAL DIAGN OSIS: Negat diann for Intra epith elial Tj herman or Diamond merrill (NIL) . Elect srinath [...] as clini hilaria nolan nted. Not Available [facility] ([facility]) [address], [place], [address], 04/05/2022 18:59:35 06/15/19 24 2023 IMAGE GUIDE D PAP AND HPV REGAR DLESS image guided Pap, HPV regardless of Pap result SEE RESULT S BELOW CASE REPOR T: Cytol ogy Gynec ologi xander Repor t Case: [id number] Autho rizin g Provi reese: Jarrett amezquita , Won Sidra Poole cted: 06/15 1337 CARDIOLOGY NURSE Order ing Locat ion: [place] Patho logcamilo Recei natalia: 06/16 0847 First Scree n: Pablo Staples am, CT Speci men: Scree ambrocio Pap - Image d, Cervi x STATE MENT OF ADEQU ACY: Satis facto ry for evalu ation Trans forma tion zone compo nent prese nt FINAL DIAGN OSIS: Negat diann for Intra epith elial Lesio n or Diamond merrill (NIL) . Shift in kendell sugge stive of bacte rial vagin osis. Elect srinath ludin pat d by Pablo Staples am, CT [...] as clini hilaria nolan nted. Not Available [facility] ([facility]) [address] [facility], [place], [address], 06/17/2023 12:29:38 06/15/19 24 2023 TRICH OMONA S VAGIN SADE (RRNA ) trichomonas vaginalis ribosomal RNA (rrna) Negati ve negati ve Not Available [facility] ([facility]) [address] [facility], [place], [address], 06/17/2023 12:29:39 06/15/[address]/GC (IRIS) , THINP REP VIAL chlamydia trachomatis, PCR Negati ve negati ve Not Available [facility] ([facility]) [address] [facility], [place], [address], 06/17/2023 12:29:39 06/15/[address]/GC (IRIS) , THINP REP VIAL neisseria gonorrhoeae, PCR Negati ve negati ve Not Available [facility] ([facility]) [address] [facility], [place], [address], 06/17/2023 12:29:39 01/16/20 25 01/15/2025 IMAGE GUIDE D PAP AND HPV REGAR DLESS image guided Pap, HPV regardless of Pap result SEE RESULT S BELOW CASE REPOR T: Cytol ogy Gynec ologi xander Repor t Case: [id number] Autho tommie norma Provi reese: Dermo dy, Sukhdeep , ANP, MINERALOGY PROFESSOR Colle cted: 01/15 1502 Order ing Locat ion: [place] Patho logcamilo Recei natalia: 01/16 0944 First Scree n: Maylin Hammonds, CT Speci men: Irineo albrecht Pap - Image d, Cervi x STATE MENT OF ADEQU ACY: Satis facto ry for evalu ation Trans forma tion zone compo nent prese nt ----- ----- ----- ----- ----- ----- ----- ----- ----- ----- ----- ----- ----- ----- ----- ----- ----- ---- FINAL DIAGN OSIS: Negat diann for Intra epith elial Lesio virgil or Diamond merrill (NIL) . Elect srinath stewart d by Mayiln Hammonds, CT on 2024 at 1141 CDT ----- ----- ----- ----- ----- ----- ----- [...] Statu s: LMP (if appli cable ): 2024 Clini xander Histo ry/Pr eviou s Pap: [...] as clini hilaria nolan nted. Not Available [facility] ([facility]) [address] [facility], [place], [address], 01/17/2025 12:49:26 01/16/20 25 01/15/2025 CT/GC AND TRICH OMONA S VAGIN SADE (RRNA ), THINP REP VIAL CT/GC and trichomonas vaginalis (rrna), thinprep SEE RESULT S BELOW negati ve CHLAM YDIA TRACH OMATI S, PCR: Negat diann NEISS ERIA GONOR RHOEA E, PCR: Negat diann TRICH OMONA S VAGIN SADE RIBOS OMAL RNA (RRNA ): Negat diann Not Available [facility] ([facility]) [address] [facility], [place], [address], 01/17/2025 12:49:27 06/30/19 23 06/30/2022 MAMMO , scree ambrocio, bilat eral No observ ation record ed. [email or web address] [facility] [address] [facility] [address], [place], [address], 07/09/2022 16:14:15 07/01/19 23 06/30/2022 MAMMO , irineo albrecht, bilat eral No observ ation record ed. [address] [facility] [address], [place], [address], 07/09/2022 16:14:16 07/25/19 23 07/24/2022 US, breas t, bilat eral No observ ation record ed. [facility] [address] [facility] [address], [place], [address], 07/31/2022 07:31:21 Result Notes None recorded. Problems Name Problem SNOMED Code Status Onset Date Resolution Date Notes Provider Name and Address Organization Details Recorded Time Pregnanc y test positive 768528174 Completed 201303/12/2021 Pregnanc y examinat ion or test, positive result;R ecorded Elsewher e: No Locat ion: [facility] S ource: EHR Law Secretary michelle: N Practi ce ID: 0001 Jim lable Time: 01:15:00 PM Dina Schaefer [facility] 16:39:29 Amenorrh ea [id number] Completed 201303/12/2021 AMENORRH EA;Pract ice ID: 0001 Dina Silvano [facility] 16:39:11 Ultrason ography Completed 201303/12/2021 Antenata l screenin g for malforma tion using ultrason ics;Prac jodie ID: 0001 Dina Schaefer [facility] 16:39:44 Antenata l screenin g Completed 201303/12/2021 Antenata l screenin g for malforma tion using ultrason ics;Prac jodie ID: 0001 Dina julien [facility] 16:39:12 Congenit al malforma tion 151386390 Completed 201303/12/2021 Antenata l screenin g for malforma tion using ultrason ics;Prac jodie ID: 0001 Dina julien, [facility] 16:39:19 Routine antenata l care Completed 201303/12/2021 Supervis ion of other normal pregnanc y;Practi ce ID: 0001 Dina julien, [facility] 16:39:30 Complica tion related to pregnanc y Completed 201303/12/2021 Weight Insuffic ient Antepart um;Pract ice ID: 0001 Dina julien, [facility] 16:39:17 Poor growth affectin g manageme nt [id number] Completed 201303/12/2021 GROWTH POOR SGA;Prac jodie ID: 0001 Dina julien, [facility] 16:39:27 Screenin g for malignan t neoplasm of cervix Completed 201303/12/2021 Pap Smear;Pr actice ID: 0001 Dina julien, [facility] 16:39:32 Maternal care for diminish ed movement s Completed 201303/12/2021 Decrease d movement s, affectin g manageme nt of mother, antepart um conditio n or complica tion;Pra ctice ID: 0001 Dina julien, [facility] 16:39:24 Delivery normal [id number] Completed 201303/12/2021 Normal delivery ;Practic e ID: 0001 Dina julien, [facility] 16:39:20 Single live from singleto n pregnanc y [id number] Completed 201303/12/2021 Mother with single liveborn ;Practic e ID: 0001 Dina julien, [facility] 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 16:39:39 Overweig ht [id number] Completed 201403/12/2021 Overweig ht;Recor ded Elsewher e: No Locat ion: Rick jackson [facility] S ource: EHR Law Secretary michelle: N Practi ce ID: 0001 Jim lable Time: 03:15:00 PM Dina Schaefer [facility], [facility] 16:39:26 Venereal disease screenin g Completed 201403/12/2021 Screenin g examinat ion for venereal disease; Recorded Elsewher e: No Locat ion: Rick jcakson [facility] S ource: EHR Law Secretary michelle: N Practi ce ID: 0001 Jim lable Time: 03:15:00 PM Dina Schaefer [facility], [facility] 16:39:46 Speciali zed medical examinat ion Completed 201403/12/2021 Other specifie d chlamydi al diseases ;Recorde d Elsewher e: No Locat ion: Rick jackson [facility] S ource: EHR Law Secretary michelle: N Practi ce ID: 0001 Jim lable Time: 03:15:00 PM Dina Schaefer [facility] 16:39:[address] Concept Completed 201603/12/2021 Encntr for ob/gyn nurse exam (general ) (routine ) w/o abn findings ;Recorde d Elsewher e: No Locat ion: [facility] S ource: EHR Law Secretary michelle: N Practi ce ID: 0001 Jim lable Time: 01:00:00 PM Dina Schaefer [facility] 16:39:37 Body mass index 25-29 - overweig ht [id number] Completed 201603/12/2021 Body mass index (BMI) 29.0-29. 9, adult;Re corded Elsewher e: No Locat ion: [facility] S ource: EHR Law Secretary michelle: N Practi ce ID: 0001 Jim lable Time: 01:00:00 PM Dina Schaefer [facility] 16:39:14 Infectio n screenin g Completed 201603/12/2021 Encounte r for screenin g for oth infec/pa rastc diseases ;Recorde d Elsewher e: No Locat ion: [facility] S ource: EHR Law Secretary michelle: N Practi ce ID: 0001 Jim lable Time: 01:00:00 PM Dina Schaefer [facility] 16:39:23 Body mass index 30+ - obesity [id number] Completed 201703/12/2021 Body mass index (BMI) 31.0-31. 9, adult;Re corded Elsewher e: No Locat ion: [facility] S ource: EHR Law Secretary michelle: N Practi ce ID: 0001 Jim lable Time: 03:00:00 PM Dina Schaefer [facility] 16:39:16 Increase d frequenc y of urinatio n [id number] Completed 201703/12/2021 Urinary frequenc y;Record ed Elsewher e: No Locat ion: Rick jackson [facility] S ource: EHR Law Secretary michelle: N Practi ce ID: 0001 Jim lable Time: 03:00:00 PM Dina Schaefer [facility] 16:39:22 Syphilis test finding [id number] Completed 201703/12/2021 Encntr screen for infectio ns w sexl mode of transmis s;Record ed Elsewher e: No Locat ion: Rick jackson [facility] S ource: EHR Law Secretary michelle: N Practi ce ID: 0001 Jim lable Time: 03:00:00 PM Dina Schaefer [facility], [facility] 16:39:[address] Concept Completed 201803/12/2021 Encntr for routine child health exam w/o abnormal findings ;Recorde d Elsewher e: No Locat ion: Rick jackson [facility] S ource: EHR Law Secretary michelle: N Brendanti ce ID: 0001 Jim lable Time: 08:30:00 AM Dina Schaefer [facility] 1 16:39:36 Malignan t neoplasm of lung [id number] Completed 201906/30/2019 Monica Patel [facility] 0 16:51:48 Problem Notes None recorded. Procedures Surgical History Date Name Laterality Status Provider Name and Address Organization Details Recorded Time 07/01/19 24 Date of Last Mammogram completed Lisa Nicholas [facility] 01/15/2025 09:20:57 06/15/19 24 Date of Last Pap Smear completed Kailey Torres [facility] 01/04/2025 08:51:42 06/02/19 24 repair of peroneal tendon completed Lisa Nicholas [facility] 2023 12:32:43 10/30/19 23 Date of Last Colonoscopy completed Lisa Nicholas [facility] 01/15/2025 09:21:31 10/30/19 23 Colonoscopy completed Lisa Nicholas [facility] 01/15/2025 09:22:00 07/30/19 20 operation on lung completed Amelie Mathews, [facility]- [address], [place], [address], [facility] 02/26/2020 14:48:50 Imaging Results None recorded. Procedure Notes None recorded. Medical Equipment None Reported. Allergies Allergen ID Allergen Name Allergen Category Reaction Reaction Severity Criticality Documentation Date Start Date Code Code System Note Provider Name and Address Organization Details Recorded Time omeprazol e medicatio n hives Not available Not available 03/31/2022 7646 RxNorm Dina Schaefer [facility], [facility] 16:08:58 Medications Name Sig Start Date Stop Date Status Note LastModified by Organization Details LastModified Time amoxicill in 500 mg capsule 03/12 completed Not Available Not Available Not Available methocarb dar 500 mg tablet 01/15 completed Not Available Not Available Not Available prednison e 10 mg tablet TAKE [...] BY MOUTH TWICE DAILY FOR 7 DAYS 01/04 completed Not Available Not Available Not Available amlodipin e 5 mg tablet TAKE 1 TABLET BY MOUTH EVERY DAY 03/31 completed Not Available Not Available Not Available valacyclo vir 500 mg tablet TAKE 1 TABLET BY MOUTH TWICE DAILY FOR 3 DAYS active Not Available Not Available No t Available omeprazol e 40 mg capsule,d elayed release TAKE 1 CAPSULE BY MOUTH TWICE DAILY BEFORE BREAKFAS T AND SUPPER 03/31 completed Not Available Not Available Not Available Nexium 20 mg capsule,d elayed release take 1 capsule by oral route every day 03/31 completed Prescrib ed Elsewher e: Yes Loca tion: [facility] M odify By: doug Jackson ncounter DateTime : [...] Not Available nortripty line 10 mg capsule 01/15 completed Not Available Not Available Not Available esomepraz [...] AREA THREE TIMES DAILY FOR 10 DAYS 01/15 completed Not Available Not Available Not Available irbesarta n 150 mg tablet TAKE 1 TABLET BY MOUTH EVERY DAY 06/15 completed Not Available Not Available Not Available polyethyl izabela glycol 3350 17 gram/dose oral powder DISSOLVE 17 GRAMS IN LIQUID AND DRINK BY MOUTH ONCE DAILY 01/04 completed Not Available Not Available Not Available estradiol 0.01% (0.1 mg/gram) vaginal cream INSERT 1 GRAM VAGINALL Y EVERY NIGHT FOR 2 WEEKS THEN INSERT 1 GRAM VAGINALL Y 2 TIMES A WEEK active Not Available Not Available No t Available methylpre dnisolone 4 mg tablets in [...] FOR SHORTNES S OF BREATH OR WHEEZING 01/15 completed Not Available Not Available Not Available Vitamin D2 1,250 mcg (50,000 unit) capsule take 1 capsule by oral route every week 05/29 completed Prescrib sudeep Gonzalez e: No Locat ion: [facility] odify By: billy smith DateTime : 02/15/20 01:10:28 PM Not Available [...] Prescrib ed Elsewher e: No Locat ion: [facility] odify By: mikala Encounte r DateTime : 12/13/19 14 10:16:11 AM Not Available Not Available Not Available azithromy juan c 500 mg tablet 06/15 completed Not Available Not Available Not Available Pepcid 01/15 completed Not Available Not Available Not Available Nexium 03/13 completed Not Available [...] Prescrib ed Elsewher e: Yes Loca tion: [facility] odify By: doug Jackson ncounter DateTime : 11/06/19 18 03:00:00 PM Not Available Not Available Not Available GaviLyte- G 236 gram-22.7 4 gram-6.74 gram-5.86 gram oral solution 01/04 completed Not Available Not Available Not Available Triveen-D uo DHA 29 mg-1 mg-400 mg oral pack take 1 by Oral route every day 10/12 completed Prescrib ed Elsewher e: No Locat ion: [facility] odify By: radha Fernandez er DateTime : 12/13/19 14 10:16:11 AM Not Available Not Available Not Available Caltrate with Vitamin D3 600 mg-20 mcg (800 unit) tablet 06/15 completed Prescrib ed Elsewher e: Yes Loca tion: [facility] M odify By: dmrose E ncounter DateTime : 11/06/19 03:00:00 PM Not Available Not Available Not Available Virtussin AC 10 mg-100 mg/5 mL oral liquid 02/25 completed Not Available Not Available Not Available Isibloom 0.15 mg-0.03 mg tablet TAKE 1 TABLET BY MOUTH EVERY DAY active Not Available Not Available No t Available Breztri Aerospher e 160 mcg-9mcg- 4.8mcg/ac tuation HFA aerosol inhaler INHALE 2 PUFFS BY MOUTH TWICE DAILY. 01/15 completed Not Available Not Available Not Available Paxlovid 300 mg (150 mg x 2)-100 mg tablets in a dose pack TK 2 NIRMATRE LVIR TS AND 1 RITONAVI R T TOGETHER PO BID FOR 5 DAYS 01/04 completed Not Available Not Available Not Available Vitals Date Recorded Body height Body mass index (BMI) Body weight Systolic And Diastolic Provider Name and Address Organization Details Last Updated DateTime 2023 162.56 cm 32.4 kg/m2 00362.96 g 126/82 mm[Hg] Lisa Nicholas [facility] 2023 12:28:06 Date Recorded Body height Body mass index (BMI) Body weight Systolic And Diastolic Provider Name and Address Organization Details Last Updated DateTime 01/15/2025 162.56 cm 31.6 kg/m2 32099 g 128/90 mm[Hg] Lisa Nicholas [facility] 01/15/2025 09:17:58 Date Recorded Systolic And Diastolic Provider Name and Address Organization Details Last Updated DateTime 02/26/2020 120/76 mm[Hg] Amelie Mathews, [facility]- [address], [place], [address], [facility] 02/26/2020 14:49:11 Date Recorded Body height Body mass index (BMI) Body weight Provider Name and Address Organization Details Last Updated DateTime 02/26/2020 162.56 cm 31.8 kg/m2 04196.59 g Etta Parker [facility] 02/26/2020 14:22:55 Date Recorded Systolic And Diastolic Provider Name and Address Organization Details Last Updated DateTime 03/13/2021 124/80 mm[Hg] Amelie Mathews, [facility]- [address], [place], [address], [facility] 03/13/2021 11:27:14 Date Recorded Body height Body mass index (BMI) Body weight Provider Name and Address Organization Details Last Updated DateTime 03/13/2021 161.29 cm 32.3 kg/m2 39444.59 g Dina [facility] 03/13/2021 11:09:24 Date Recorded Body height Body weight Body mass index (BMI) Systolic And Diastolic Provider Name and Address Organization Details Last Updated DateTime 03/31/2022 162.56 cm 27595.96 g 32.4 kg/m2 108/70 mm[Hg] Dina Schaefer [facility] 03/31/2022 16:07:11 Social History Question Answer Notes LastModified by Organizat ion Details LastModified Time Tobacco Smoking Status Never Smoker Vernalenny Costapato julien, [facility] 2023 12:19:45 Do You Have An Advance Directive? No Information n ot available 03/13/2021 Are You Blind Or Do You Have Difficulty Seeing? No Information n ot available 03/12/2021 What Is Your Level Of Caffeine Consumption? Occasional Information not available 03/12/2021 How Much Tobacco Do You Chew? None Information not available 03/13/2021 In The 14 Days Before Symptom Onset, Have You Had Close Contact With A Laboratory-confirm ed COVID-19 While That Case Was Ill? No Information n ot available 03/13/2021 In The 14 Days Before [...] Of Diet Are You Following? REGULAR Information n ot available 03/12/2021 What Is The Highest Grade Or Level Of School You Have Completed Or The Highest Degree You Have Received? [id number] Information not available 03/13/2021 Are There Any [...] Information not available 03/13/2021 Do You Use Sunscreen Routinely? No Information not available 03/13/2021 Have You Used IV Drugs? No Information not available 03/13/2021 Do You Have Difficulty Walking Or Climbing Stairs? No [email or web address] Information not available 2023 Sex: Unknown Functional Status Question Answer Note LastModified by Organizat ion Details LastModified Time Do you use any illicit or recreational drugs? No Information not available 03/12/2021 What is your level of alcohol consumption? None Information not available 03/12/2021 Are you able to walk independently without assistance or assistive devices? YESWOREST Information not available 03/12/2021 Are you able to care for yourself independently? 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 No [email or web address] Information not available 2023 What is your exercise level? Occasional Information not available 03/31/2022 Mental Status Question Answer Note LastModified by Organization D etails LastModified Time Do you feel stressed (tense, restless, nervous, or anxious, or unable to sleep at night)? [id number] Information not available 03/12/2021 Family History Relationship Description Onset Age of this Age Resolved Age Notes LastModified by Organization Details LastModified Time Mother Hypertensive disorder [email or web address] Not available 2019 14:24:21 Paternal Grandfather Diabetes mellitus [email or web address] Not available 2019 14:24:26 Maternal Grandfather Carcinoma in situ of lung [email or web address] Not available 0 01/15/2025 09:06:18 Maternal Aunt Carcinoma in situ of breast [email or web address] Not available 12/29 09:06:18 Maternal Aunt Seizure disorder [email or web address] Not available 12/29 09:06:18 Medical History Condition Response Other Y Anemia Y Acid Reflux (GERD) Y Cancer Y Hypertension Y Gynecological History Statement/Question Response Date of Last Mammogram 07/01/2023 Flow Moderate Date of LMP 01/10/2025 N Was last menstrual period normal Y STIs/STDs Yes Date of control 05/03/2014 Date of Last Colonoscopy 10/29/2022 BCPs Desired Control Method BCPs On BCP's at Conception? Y HPV Vaccine N Duration of Flow (days) 4 Current Control Method BCPs Are cycles usually normal Y Frequency of Cycle (Q days) 28 Sexually Active? Y Menses Monthly Y Age of first menstrual cycle 14 Date of Last Pap Smear 2023 Sexual Problems? N LMP Definite N Obstetrics History GPAL:G 5 P 0 0 1 4 Type Value Induced 1 Living 4 Total 5 Past Encounters Encounter ID Performer Location Encounter Start Date Encounter Closed Date Diagnosis/Indication Diagnosis SNOMED-CT Code Diagnosis ICD10 Code Diagnosis IMO Codes Diagnosis Note [id number] [facility] [address] [address] 02/26/2020 14:07:15 02/26/2020 14:52:31 Gynecologic examination 56428307 Z01.419 Take Calcium with Vitamin D 1200mg [...] paper copy of today's plan if desired. [id number] Amelie Mathews , [facility] [address] [address] 03/13/2021 10:39:37 03/13/2021 12:39:00 Gynecologic examination 56754087 Z01.419 Take Calcium with Vitamin D 1200mg [...] Pap/hpv sentSTD sentMammo due next year Menorrhagia 626755315 N9 2.0 Feels she had a sensitivit y to the change in generic.We will order Sari ADAMS.Specia list she is seeing for liver issues/negar g oncologist aware she is on control. Vaginitis 66426341 N76.0 VCG's sheet givenTreat ed yeast on exam [id number] [facility] [address] [address] 03/31/2022 15:43:53 03/31/2022 16:28:54 Gynecologic examination 92068949 Z01.419 Z11.51 Take Calcium with Vitamin D [...] Labs PCPMammo ordered Contracept ion care management 182632871 Z30.9 [id number] Amelie Mathews [facility] [address] [address] 2023 12:19:18 2023 12:50:45 Gynecologic examination 44397252 Z11.51 Z11.3 Z11.8 Take Calcium with Vitamin [...] Labs PCPMammo ordered Contracept ion care management 868508591 Z30.9 Happy on OCPWishes to continue.B P well managed. No issues Screening mammography 24 558667 Z12.31 [id number] SUKHDEEP DUPREE NP [place] [address] [address] 01/15/2025 09:05:53 01/15/2025 12:51:23 Well woman health examination 904796026 Z01.419 [id number] Annual gynecologi xander exam performed. Patient will come back in a year unless there are new symptoms. Suggest Calcium with Vitamin D if not eating in diet. Patient advised to get annual flu shot. Recommend yearly physicals and perform monthly breast exams. Genetic testing is available for patients with family history of cancer. Engage in safe sexual practices, use condoms. Encouraged to have daily exercise. Avoid tobacco and illicit drugs, moderation of alcohol. If BMI greater than 25 dietary consult advised. If you have any questions please call or email. mammogram- order given, pt to schedule colon cancer screening - UTD PCP DEXA scan- n/a Pap smear- pap w/ HPV collected laboratory evaluation - declined STI testing - requested Herpes simplex 29424815 B00.9 Refill sent for PRN sent Uses oral contraception 3773969 Z30.41 [id number] Happy with BC pills. Risks/bene fits reviewed.R efills sent x one year. Vaginal dryness 98162414 N89.8 [id number] Counseled on the following: Vaginal Dryness: Bothersome symptoms of the vagina and vulva (outer lips of the vagina) increase during and after the menopause transition or may start several years after menopause. The decrease in estrogen with menopause is a major contributo r to vaginal dryness, itching, burning, discomfort , and pain during intercours e or other sexual activity. Vaginal atrophy is the medical term that describes these changes. The genitourin lesly syndrome of menopause includes bothersome vaginal atrophy often combined with urinary symptoms. Vaginal atrophy may significan tly affect your quality of life, sexual satisfacti on, and relationsh ip with your partner. Unlike hot flashes, which generally improve with time, vaginal symptoms typically worsen with time because of aging and a prolonged lack of estrogen. Vaginal estrogen therapy An effective and safe treatment, low-dose local estrogen is applied directly to the vagina to restore vaginal health and relieve vaginal dryness and discomfort with sexual activity. Improvemen ts usually occur within a few weeks, although complete relief may take several months. This even may be an option for women with a history of breast or uterine cancer but only after careful considerat ion of risks and benefits with a healthcare provider and oncologist . Government -approved low-dose vaginal estrogen products are available by prescripti on as vaginal creams (used two or three nights/wee k), a vaginal estradiol tablet (used twice/week ), and an estradiol vaginal ring (changed every 3 months). All are highly effective. You may wish to try several different forms and choose the one you prefer. Standard doses of estrogen therapy provided to treat hot flashes also treat vaginal dryness, although some women still benefit from additional low-dose vaginal estrogen treatment. If only vaginal symptoms are present, low doses of estrogen applied to the vagina are recommende d. RTO in 3 months for medication check. Venereal d isease screening 918822077 Z11.3 [id number] Pt requested STI testing.Di scussed the various types of STDs, related symptoms and the potential consequenc es (including effects on fertility) of STD infections . Reviewed ways to limit exposure and prevention techniques . Health Concerns Section Related Observation LastModified by Organization Detai ls LastModified Time None Recorded Concern Status LastModified by Organization Details LastModified Time None Recorded Advance Directives Directive N: Payers Insurance Date Sequence Insurance Name Policy Number Policy Sams Covered Member ID Sams Member ID Guarantor Name 01/12/2025 1 [facility] ([facility] [id number] Lisa Quiles [id number] Lisa Quiles Notes Date Note Type Note Provider Name and Address Organization Details Recorded Time 0 text/html Annual GYNReported by PatientHistoryFor history, patient reportsno gynecologic complaints.Genitourinary symptomsFor menstrual cycle, patient reportsnormal menses. For urinary symptoms, patient reportsno hematuriaandno incontinence. For vulva, patient reportsno genital lesion. For vagina, patient reportsnormal vaginal discharge.Breast symptomsFor breast, patient reportsno breast pain,no breast lump, andno nipple discharge.ContraceptionFo r current contraception, patient reportssatisfied with current contraceptionandoral contraceptives.Endocrine symptomsFor sexual complaints, patient reportsno sexual complaints,no pain during intercourse, andnormal libido. For menopausal symptoms, patient reportsno menopausal symptomsandnormal vaginal lubrication.Psychological symptomsFor psychological symptoms, patient reportsno depression,no anxiety, andno pmdd.Preventative measuresFor preventive measures, patient reportsencourage self breast examination,encourage regular exercise,encourage no tobacco use, andencourage regular mammograms starting age 40. Amelie Mathews, [facility] [address], [place], [address], [facility] 02/26/2020 14:52:26 1 text/html Annual GYNReported by PatientGenitourinary symptomsFor menstrual cycle, patient reportsnormal menses. For urinary symptoms, patient reportsno hematuriaandno incontinence. For vulva, patient reportsno genital lesion. For vagina, patient reportsnormal vaginal discharge.Breast symptomsFor breast, patient reportsno breast pain,no breast lump, andno nipple discharge.ContraceptionFo r current contraception, patient reportsoral contraceptives (ocp was changed to different generic & feels it has effected her period.).Endocrine symptomsFor sexual complaints, patient reportsno sexual complaints,no pain during intercourse, andnormal libido. For menopausal symptoms, patient reportsno menopausal symptomsandnormal vaginal lubrication.Psychological symptomsFor psychological symptoms, patient reportsno depression,no anxiety, andno pmdd.Preventative measuresFor preventive measures, patient reportsencourage self breast examination,encourage regular exercise,encourage no tobacco use, andencourage regular mammograms starting age 40. Amelie Mathews [facility] [address], [place], [address], [facility] 03/13/2021 12:33:37 2 text/html Annual GYNReported by PatientHistoryFor history, patient reportsno gynecologic complaints.Genitourinary symptomsFor menstrual cycle, patient reportsnormal menses. For urinary symptoms, patient reportsno hematuriaandno incontinence. For vulva, patient reportsno genital lesion. For vagina, patient reportsnormal vaginal discharge.Breast symptomsFor breast, patient reportsno breast pain,no breast lump, andno nipple discharge.ContraceptionFo r current contraception, patient reportssatisfied with current contraceptionandoral contraceptives.Endocrine symptomsFor sexual complaints, patient reportsno sexual complaints,no pain during intercourse, andnormal libido. For menopausal symptoms, patient reportsno menopausal symptomsandnormal vaginal lubrication.Psychological symptomsFor psychological symptoms, patient reportsno depression,no anxiety, andno pmdd.Preventative measuresFor preventive measures, patient reportsencourage self breast examination,encourage regular exercise,encourage no tobacco use,encourage regular mammograms starting age 40,followed with yearly pap smears, andneeds to schedule mammogram. JEANNA Greer- [address], [place], [address], [facility] 03/31/2022 16:28:51 4 text/html Annual GYNReported by PatientGenitourinary symptomsFor menstrual cycle, patient reportsnormal menses. For urinary symptoms, patient reportsno hematuriaandno incontinence. For vulva, patient reportsno genital lesion. For vagina, patient reportsnormal vaginal discharge.Breast symptomsFor breast, patient reportsno breast pain,no breast lump, andno nipple discharge.Endocrine symptomsFor sexual complaints, patient reportsno sexual complaints,no pain during intercourse, andnormal libido. For menopausal symptoms, patient reportsno menopausal symptomsandnormal vaginal lubrication.Psychological symptomsFor psychological symptoms, patient reportsno depression,no anxiety, andno pmdd.Preventative measuresFor preventive measures, patient reportsencourage self breast examination,encourage regular exercise,encourage no tobacco use,encourage regular mammograms starting age 40,followed with yearly pap smears, andneeds to schedule mammogram. Amelie Mathews [facility]- [address], [place], [address], [facility] 2023 12:50:34 5 text/html Annual GYNReported by PatientGenitourinary symptomsFor menstrual cycle, patient reportsnormal menses. For urinary symptoms, patient reportsno hematuriaandno incontinence. For vulva, patient reportsno genital lesion. For vagina, patient reportsnormal vaginal discharge.Breast symptomsFor breast, patient reportsno breast pain,no breast lump, andno nipple discharge.ContraceptionFo r current contraception, patient reportssatisfied with current contraceptionandoral contraceptives.Endocrine symptomsFor menopausal symptoms, patient reportsinadequacy of lubrication of vaginal mucosabut reportsno menopausal symptoms. For sexual complaints, patient reportsno sexual complaints,no pain during intercourse, andnormal libido.Psychological symptomsFor psychological symptoms, patient reportsno depression,no anxiety, andno pmdd.Preventative measuresFor preventive measures, patient reportsencourage self breast examination,encourage regular exercise,encourage no tobacco use, andencourage regular mammograms starting age 40. Patient presents for annual well woman exam.Reports worsening vaginal dryness over the past few years. Denies hot flashes or night sweats. SUKHDEEP DUPREE, [facility] [address], [place], [address], [facility] 01/15/2025 12:37:30 OBGyn Episode Ob Episode Information Episode Created Date Number of Fetuses Patient Bloodtype Patient rh Status Prepregnancy Weight lbs Domestic Partner Domestic Partner Phone Father Name Grinder Set Up Operator Surface Status 02/26/20 20 1 CLOSED Fetus Data [...] Domestic Partner Domestic Partner Phone Father Name Grinder Set Up Operator Surface Status 02/26/20 20 1 CLOSED Fetus Data [...] Domestic Partner Domestic Partner Phone Father Name Grinder Set Up Operator Surface Status 02/26/20 20 1 CLOSED Fetus Data [...] Domestic Partner Domestic Partner Phone Father Name Grinder Set Up Operator Surface Status 02/26/20 20 1 CLOSED Fetus Data [...] Domestic Partner Domestic Partner Phone Father Name Grinder Set Up Operator Surface Status 03/12/20 21 1 CLOSED Fetus Data First Name Last Name Admitted to NICU Weight (g) Sex Living Outcome Pediatric Complications Fetus ID Race Codes Race Delivery Type , Induced [id number] Musa Calculation Initial Musa Date Initial Exam [...]
--- OUTSIDE RECORDS SUMMARY | 2025-03-14 16:42 | XMS_ITS | Encounter Summary ---
Author Organization [facility] Address [address] [place] [address] Phone Care Team Providers Care Cd Storage And Materials Make Up Helper Name Role Phone Rudy Seaman Primary Care Provider [phone] Michael Hutson MD Unavailable [phone] Encounter Details Date Type Department Care Team (Late st Contact Info) Description 09/25/2021 Telephone [facility] [address] [address] Michael Hutson MD [address] [facility] [address] [address] Social History Tobacco Use Types [...] Master's degree (e.g., MA, MS, Kayla, MEd, CLINICAL EDITOR, RICHAR) 07/21/2019 Sexually Active Control Partners Comments Yes Comments Unknown Sex and Gender Information Value Date Recorded Sex Assigned at Not on file Legal Sex Female 2:45 PM 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 Patient aware of new appointment. * Telephone [...] Care Team (Late st Contact Info) Description 2025 9:00 AM MOLECULAR PHYSICIST Ancillary Procedure [facility] [address] [phone] 08/17/2025 9:00 AM CDT Office Visit [facility] [address] [phone] Michael Hutson MD [address] [facility] [address] [place] [address] [place] [id number] documented as of this encounter Visit Diagnoses Not on filedocumented in this encounter Additional Health Concerns Assessment Noted Time PHQ-9 Depression Total Score: 0 02/28/20 21 8:32 AM CDT documented as of this encounter Care Teams Cd Storage And Materials Make Up Helper Relationship Specialty Start Date End Date Rudy Seaman [address] [facility] [place] [address] PCP - General Family Medicine 07/21/19 Michael Hutson MD [address] [place] [phone] Consulting Physician Oncology 07/21/19 documented as of this encounter
--- OUTSIDE RECORDS SUMMARY | 2025-03-14 16:42 | XMS_ITS | Encounter Summary ---
Author Organization [facility] Address [address] [place] [id number] Care Team Providers Care Sports Trainer Name Role Phone Rudy Seaman MD Primary Care Provider [phone] Encounter Details Date Type Department Care Team (Late st Contact Info) Description 01/23/2022 MyChart Message Enc [facility] Multispecialty Care - [facility] [address] [facility], [address] [place] [id number] Elias Fortune MD [address] [place] [address] Symptom inquiry Social History Tobacco Use Types [...] on filedocumented in this encounter Care Teams Sports Trainer Relationship Specialty Start Date End Date Rudy Seaman MD PCP - General FAMILY PRACTICE 12/18/20 documented as of this encounter
--- OUTSIDE RECORDS SUMMARY | 2025-03-14 16:42 | XMS_ITS | Clinical Summary ---
Author Organization [facility] Address [address] [place] [address] Phone Care Team Providers Care Analytical Technician Name Role Phone Rudy Seaman Primary Care Provider [phone] Michael Hutson MD Unavailable [phone] Allergies Active Allergy Reactions Criticality Noted Date Comments Amoxicillin Other (see Comments) Low 03/22/2019 Causes yeast infections Omeprazole Hives Low 07/11/2021 Medications Desogestrel-Eth inyl Estradiol 0.15-30 MG-MCG Tablet Take 1 Tab by mouth. Active esomeprazole (NexIUM) 40 MG CAPSULE DELAYED RELEASE 2 times daily. 1 Active polyethylene glycol (GLYCOLAX) 17 GM/SCOOP Powder DISSOLVE 17 GRAMS IN LIQUID AND DRINK BY MOUTH ONCE DAILY 2 Active irbesartan-hydr oCHLOROthiazide (AVALIDE) 150-12.5 MG Tablet Take 1 Tablet by mouth daily. Active famotidine (PEPCID) 20 MG Tablet Take 20 mg by mouth. 4 Active estradiol (ESTRACE) 0.1 MG/GM Cream INSERT 1 GRAM VAGINALLY EVERY NIGHT FOR 2 WEEKS THEN INSERT 1 GRAM VAGINALLY 2 TIMES A WEEK Active Active Problems Problem Noted Date Diagnosed [...] dean ng 07/21/2019 Gastroesophageal reflux disease 04/12/2019 Hypertension Encounters Date Type Department Care Team Description 02/16/2025 9:35 AM CDT Lab [facility] [address] [address] Lab, Hilary Ceballos 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); Iron deficiency anemia, unspecified iron deficiency anemia type 02/16/2025 9:15 AM CDT Clinical Support [facility] [address] [address] Nurse, Hilary Ceballos Vitamin D deficiency (Primary Dx); Iron deficiency 02/16/2025 9:00 AM CDT Office Visit [facility] [address] [address] Michael Hutson MD 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) (Primary Dx); Iron deficiency anemia, unspecified iron deficiency anemia type 02/16/2025 Travel 01/15/2025 9:05 AM CDT Clinical Support [facility] [address] [address] Nurse, Hilary Ceballos Vitamin D deficiency (Primary Dx); Iron deficiency 01/15/2025 Travel from Last 3 Months Immunizations Immunization [...] Master's degree (e.g., MA, MS, Kayla, MEd, PHP WORD[employer] DEVELOPER, RICHAR) 07/21/2019 Sexually Active Control Partners Comments Yes Comments Unknown Sex and Gender Information Value Date Recorded Sex Assigned at Not on file Legal Sex Female 2:45 PM SUSTAINABLE COMMUNITIES DESIGNER Gender Identity Not on file Sexual Orientation Not on file 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 Not on file Not on file Last Filed Vital Signs Vital Sign Reading Time Taken Comments Blood Pressure 110/68 02/16/2025 9:10 AM CDT Pulse 65 02/16/2025 9:10 AM CDT Temperature 36.5 C (97.7 F) 02/16/2025 9:10 AM CDT Respiratory Rate 16 02/16/2025 9:10 AM CDT Oxygen Saturation 95% 02/16/2025 9:10 AM CDT Inhaled Oxygen Concentration - - Weight 83.5 kg (184 lb 1.6 oz) 02/16/2025 9:10 A M CDT Height 162.6 cm (5' 4) 02/16/2025 9:10 AM CDT Body Mass Index 31.6 02/16/2025 9:10 AM CDT Plan of Treatment Upcoming Encounters Date Type Department Care Team (Late st Contact Info) Description 2025 9:00 AM SUSTAINABLE COMMUNITIES DESIGNER Ancillary Procedure [facility] [address] [phone] 08/17/2025 9:00 AM CDT Office Visit [facility] [address] [phone] Michael Hutson MD [address] [place] [address] [place] [phone] Health Maintenance Due Date Last Done Comments Hepatitis C Virus (HCV) Screening 1981 Mammogram 1981 TdaP Immunization 1981 Hepatitis B Immunization (1 of 3 - 19+ 3-dose series) 2000 Pneumococcal Immunization Combined (1 of 2 - PCV) 2000 Pap Smear 2002 Human Papillomavirus (HPV) Immunization (1 - Risk 3-dose SCDM series) 2008 Cervical Cancer Screening (CCS) 2011 HPV/Cotest 2011 SARS-COV-2 Immunization (3 - Pfizer risk series) 08/29/2020 08/01/2020, 07/11/2020 Discussion re Starting/Frequency of Mammograms 2021 Influenza Immunization (#1) 2025 08/16/2019 Respiratory Syncytial Virus (RSV) Immunization (Adult) (1 - 1-dose 75+ series) 2056 Meningococcal Immunization (ACWY) Aged Out No longer eligible b ased on patient's age to complete this topic Rotavirus Immunization Aged Out No lo nger eligible based on patient's age to complete this topic Procedures Procedure Name Priority Date/Time Associated Diagnosis Comments CBC WITH AUTO DIFF [place] Routine 02/16/2025 9:39 AM CDT CMP (COMPREHENSIVE METABOLIC PANEL) Routine 02/16/2025 9:39 AM CDT 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) Iron deficiency anemia, unspecified iron deficiency anemia type IRON W/ IRON BINDING CAPACITY [place] Routine 02/16/2025 9:39 AM CDT 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) Iron deficiency anemia, unspecified iron deficiency anemia type FERRITIN Routine 02/16/2025 9:39 AM CDT 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) Iron deficiency anemia, unspecified iron deficiency anemia type from Last 3 Months Results * IRON W/ IRON BINDING CAPACITY [place] (02/16/2025 9:39 AM CDT) IRON 85 50 - 212 ug/dL [facility] SPEECH THERAPIST [facility] UIBC 210 155 - 355 ug/dL [facility] SPEECH THERAPIST [facility] TIBC 295 261 - 478 ug/dl [facility] SPEECH THERAP[facility] % Saturation 29 20 - 50 % [facility]ERAP[facility] Blood 02/16/2025 9:39 AM CDT Narrative [facility] SPEECH THERAPIST [facility] - 02/16/2025 10:44 AM CDT Release to patient->Immediate Michael Hutson MD LAB SEND OUTS Final Result [facility]ER[facility] [place] [address], * (ABNORMAL) CBC WITH AUTO DIFF [place] (02/16/2025 9:39 AM CDT) WBC 8.3 4.0 - 10.0 10*3/uL [facility] SPEE[employer] THERAP[facility] HGB 13.7 11.2 - 15.7 g/dL [facility] SPEECH THERAPIST [facility] HCT 40.4 34.1 - 44.9 % [facility] [employer] SPEECH THERAPIST [facility] PLT 312 163 - 369 10*3/uL [facility] SPEECH THERAPIST [facility] MPV 8.6(L) 9.4 - 12.4 fL [facility] SPEECH THERAPIST [facility] RBC 4.58 3.93 - 5.22 10*6/uL [facility]OL SPEECH THERAPIST [facility] MCV 88 79 - 95 fL [facility] MCH 29.9 25.6 - 32.2 pg [facility] SPEECH THERAPIST [facility] MCHC 33.9 32.2 - 36.5 g/dL [facility] SPEECH THERAPIST [facility] RDW 12.2 11.6 - 14.4 % [facility] SPEECH THERAPIST [facility] Neutrophils % 59.2 36.0 - 66.0 % [facility] SPEECH THERAP[facility] Lymphocytes % 34.3 19.0 - 40.0 % [facility] SPEECH THERAP[facility] Monocytes % 5.5 4.1 - 12.1 % [facility] SPEECH THERAPIST [facility] Eosinophils % 0.4 0.0 - 3.5 % [facility] SPEE[facility] THERAPIST [facility] Basophils % 0.4 0.0 - 1.0 % [facility] THERAP[facility] Absolute Neutrophils 4.9 1.4 - 6.6 10*3/uL [facility] THERAP[facility] Absolute Lymphocytes 2.8 0.8 - 4.0 10*3/uL [facility] SPEECH THERAPIST [facility] Absolute Monocytes 0.5 0.2 - 1.2 10*3/uL [facility] SPEECH THERAPIST [facility] Absolute Eosinophils 0.0 0.0 - 0.4 10*3/uL [facility]ECH THERAP[facility] Absolute Basophils 0.0 0.0 - 0.1 10*3/uL [facility]ECH THERAPIST [facility] 02/16/2025 9:39 AM CDT us Michael Hutson MD LAB SEND OUTS Final Result Performing Organization Address City/[facility]/ZIP Co de Phone Number [facility] [place] [address], [place] [phone] * FERRITIN (02/16/2025 9:39 AM CDT) Ferritin 124 11 - 307 ng/mL [facility] Blood 02/16/2025 9:39 AM CDT Narrative [facility] - 02/16/2025 2:39 PM CDT Release to patient->Immediate Michael Hutson MD CHEMISTRY ORDERABLES Final R esult Performing Organization Address City/[facility] Co de Phone Number [facility] [place] [address], [place] [phone] * (ABNORMAL) CMP (COMPREHENSIVE METABOLIC PANEL) (02/16/2025 9:39 AM CDT) Glucose 85 70 - 105 mg/dL [facility] Blood Urea Nitrogen 12 7 - 25 mg/dL [facility] Creatinine 0.9 0.6 - 1.2 mg/dL [facility] Sodium 140 136 - 145 mEq/L [facility] Potassium 4.1 3.5 - 5.1 mEq/L [facility] Chloride 106 98 - 107 mEq/L [facility] Bicarbonate 27 21 - 31 mEq/L [facility] Total Bilirubin 0.3 0.3 - 1.0 mg/dL [facility] Alk. Phosphatase 58 34 - 104 U/L [facility] Aspartate Aminotransferase 12(L) 13 - 39 U/L [facility] Alanine Aminotransferase 15 7 - 52 U/L [facility] Total Protein 6.8 6.4 - 8.9 g/dL [facility] Albumin 4.1 3.5 - 5.7 g/dL [facility] Calcium 9.2 8.6 - 10.3 mg/dL [facility] Anion Gap 11.1 7.0 - 15.0 mEq/L [facility] Globulin 2.7 2.0 - 3.5 g/dL [facility] EGFR 81 >60 ml/min/1. 73m2 [facility] Comment: This eGFR is calculated using 2020 CKD-EPI Creatinine equation without race modifier based on the NKF-ASN task force recommendations Equation: bHEL=507*min(SCr/k,1)a*max(SCr/k,1)-1.200*0.9938Age*1.012 (if female), where SCr is serum creatinine, k is 0.7 for females and 0.9 for males, and a is -0.241 for females and -0.302 for males Blood 02/16/2025 9:39 AM CDT Narrative [facility] - 02/16/2025 10:44 AM CDT Release to patient->Immediate IS THE PATIENT REQUIRED TO BE FASTING FOR 8 HOURS?->No us Michael Hutson MD CHEMISTRY ORDERABLES Final R esult [facility] [place] [address], from Last 3 Months Insurance [facility] Care Teams Analytical Technician Relationship Specialty Start Date End Date Rudy Seaman [address] [place] [address] PCP - General Family Medicine 07/21/19 Michael Hutson MD [address] [place] [address] Consulting Physician Oncology 07/21/19
--- OUTSIDE RECORDS SUMMARY | 2025-03-14 16:42 | XMS_ITS ---
Author Organization [facility] Address [address], [facility] [address] [place] [address] Phone Care Team Providers Care Shelter Supervisor Name Role Phone Rudy Seaman Primary Care Provider [phone] Michael Hutson MD Unavailable [phone] Active Problems Problem Noted Date Diagnosed Date [...] ng 07/21/2019 Gastroesophageal reflux disease 04/12/2019 Hypertension Current Treatment and Therapy Plans No current plan information found. Other Current Plans SUPPORT - VITAMIN B12 WEEKLY - [facility]SCI* Plan Start Date:08/07/2021 Plan Provider:Jennifer Romano PAC Linked Problems Vitamin D deficiencyIron def iciency Treatment Medications No medications scheduled. Past Treatment and Therapy Plans
--- OUTSIDE RECORDS SUMMARY | 2025-03-14 16:43 | XMS_ITS | Encounter Summary ---
Author Organization [facility] Address [address] [place] [address] Phone Care Team Providers Care Lace Tearing Supervisor Name Role Phone Rudy Seaman Primary Care Provider [phone] Michael Hutson MD Unavailable Encounter Details Date Type Department Care Team (Late st Contact Info) Description 01/22/2021 Telephone [facility] [address] [phone] Michael Hutson MD [address] [facility] [address] [address] Social History Tobacco Use Types [...] Master's degree (e.g., MA, MS, Kayla, MEd, DENTAL SURGERY DOCTOR, RICHAR) 07/21/2019 Sexually Active Control Partners Comments Yes Comments Unknown Sex and Gender Information Value Date Recorded Sex Assigned at Not on file Legal Sex Female 2:45 PM PREFINISH OPERATOR Gender Identity Not on file Sexual Orientation Not on file 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 file [...] st Contact Info) Description 2025 9:00 AM PREFINISH OPERATOR Ancillary Procedure [facility] [address] [phone] 08/17/2025 9:00 AM CDT Office Visit [facility] [address] [phone] Michael Hutson MD [address] [facility] [address] [address] documented as of this encounter Visit Diagnoses Not on filedocumented in this encounter Additional Health Concerns Assessment Noted Time PHQ-9 Depression Total Score: 0 12/27/19 8:45 AM CDT documented as of this encounter Care Teams Lace Tearing Supervisor Relationship Specialty Start Date End Date Rudy Seaman [address] [place] [address] PCP - General Family Medicine 07/21/19 Michael Hutson MD [address] [place] [phone] Consulting Physician Oncology 07/21/19 documented as of this encounter
--- OUTSIDE RECORDS SUMMARY | 2025-03-14 16:43 | XMS_ITS | Encounter Summary ---
Author Organization [facility] Address [address] [place] [address] Phone Care Team Providers Care Community Resource Consultant Name Role Phone Rudy Seaman Primary Care Provider [phone] Michael Hutson MD Unavailable Encounter Details Date Type Department Care Team (Late st Contact Info) Description 01/22/2021 Telephone [facility] [place] [address] [place] [address] Keegan Servin, [address] [place] [address] Social History Tobacco Use Types [...] Master's degree (e.g., MA, MS, Kayla, MEd, EDUCATION PROGRAM ASSOCIATE, RICHAR) 07/21/2019 Sexually Active Control Partners Comments Yes Comments Unknown Sex and Gender Information Value Date Recorded Sex Assigned at Not on file Legal Sex Female 2:45 PM INSURANCE CLERK Gender Identity Not on file Sexual Orientation Not on file 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 [...] st Contact Info) Description 2025 9:00 AM INSURANCE CLERK Ancillary Procedure [facility] [address] [phone] 08/17/2025 9:00 AM CDT Office Visit [facility] [address] [phone] Michael Hutson MD [address] [facility] [address] [phone] documented as of this encounter Visit Diagnoses Not on filedocumented in this encounter Additional Health Concerns Assessment Noted Time PHQ-9 Depression Total Score: 0 12/27/19 21 8:45 AM CDT documented as of this encounter Care Teams Community Resource Consultant Relationship Specialty Start Date End Date Rudy Seaman [address] [place] [address] PCP - General Family Medicine 07/21/19 Michael Hutson MD [address] [place] [phone] Consulting Physician Oncology 07/21/19 documented as of this encounter
== END 2025-03-14 14:19 | disposition home or self-care (01) ==
PROVIDERS: PCP Emergency Medicine; Visit Provider Emergency Medicine
DX: M25.512 Pain in left shoulder (principal)
CPT/HCPCS: 73030